=== PATIENT | male | born 1955 | race Caucasian/White ===

== ENCOUNTER 2021-09-29 08:38 | Inpatient (IN) ==
--- NOTE | 2021-09-29 09:06 | Emergency Department Note ---
Impression & Plan Acute respiratory failure, Pneumonia due to COVID-19 virus, Hypoxia ED Provider Note NAME: KATELIN ROBERTS Sr AGE: 66 SEX: M : 1955 ARRIVES VIA: Ambulance INFORMANT: Patient ED PROVIDER(S): Jos Matthews DO CHIEF COMPLAINT: Shortness of breath HPI: Patient is a 66-year-old male who presents the ER from [facility]. Patient was transferred there for rib fractures and a fall. He started getting short of breath and coughing over the past 72 to 48 hours. He tested positive for Covid yesterday. He is a previous smoker. He admits to shortness of breath. No belly pain. No nausea, vomiting, or diarrhea. No dysuria, urgency, or frequency. He has been having fevers there. He has been diagnosed with CHF and COPD. He was placed on nasal cannula and switched to a nonrebreather and moved up from 4L to 10 L and transferred via EMS to hospital. ROS: See above HPI for pertinent positives & negatives. A total of 10 systems reviewed and were otherwise negative. PAST MEDICAL HISTORY:See Below PAST SURGICAL HISTORY:See Below FAMILY HISTORY:See Below SOCIAL HISTORY:See Below HOME MEDICATIONS:See Below ALLERGIES:See Below VITALS:See Below PHYSICAL EXAMINATION: GENERAL: Sitting up in bed, alert, ill-appearing, disheveled on a nonrebreather, moderate distress EYE EXAM: normal conjunctiva. PERRL and EOM's grossly intact. OROPHARYNX: Dry mucous membranes NECK: supple, no nuchal rigidity, no adenopathy, non-tender LUNGS: Diminished bilaterally. Normal chest wall mechanics HEART: no murmurs, S1 normal and S2 normal ABDOMEN: abdomen soft, non-tender, normo-active bowel sounds, no masses, no rebound or guarding. UPPER EXTREMITIES: upper extremities are grossly normal. LOWER EXTREMITIES: No pitting edema. NEURO EXAM: Normal sensorium, cranial nerves II-XII grossly intact, normal speech, no gross weakness of arms, no gross weakness of legs. MEDICAL DECISION MAKING: Patient is a six 6-year-old male who presents the ER for shortness of breath. He is Covid positive. Upon presentation he was found to be hypoxic and was placed on BiPAP. On BiPAP pulse ox was initially doing fairly well in the low 90s. He trended down into the low 80s and was fairly persistently 82 to 83%. Labs were obtained showed no significant leukocytosis but a mild anemia 11,000. INR was unremarkable. VBG with a CO2 of 51. BMP along with LFTs bilirubin and troponin was unremarkable. Lipase was normal. Patient was Covid positive. He was given fluids and Decadron. He was intubated by myself at bedside as he was not maintaining his oxygen saturations. This was done with socks and ketamine. Following this I discussed with Dr. Silva and Dr. Cano. Patient was accepted to the ICU and he was transferred over there fairly quickly. Triage Nursing notes reviewed. Limited review of prior medical records performed Vital Signs: reviewed and remarkable for hypoxic Differential diagnosis: Differential diagnoses includes but is not limited to pneumonia, bronchitis, COPD/Asthma exacerbation, pneumothorax, pulmonary embolism, congestive heart failure, acute coronary syndrome ER treatment provided: See below Diagnostics interpreted by me: ECG: Sinus rhythm rate of 79 Normal axis No PVCs Poor baseline QTC 463 Cardiac Monitoring: An order was placed for continuous cardiac monitoring. The monitor shows a rate of 80 with sinus rhythm. Laboratory studies: As stated above and show below. Imaging studies: Chest x-ray with bilateral infiltrates Chest x-ray shows ET tube placement above the paulie Consultation(s): Discussed with Dr. Yohan Silva for further evaluation due to the persistent hypoxia following intubation after increasing PEEP. Patient was taken over to the ICU per his request Discussed with Dr. Cano for admission Procedures: EM PROCEDURE NOTE - Endotracheal Intubation PROCEDURE NOTE: Informed consent was obtained by the patient. Verify Correct Patient: yes Procedure: Endotracheal intubation Indication: Hypoxic respiratory failure The procedure was done emergently. Description of the Procedure: The patient was seen and properly identified. The patient was pre-oxygenated and intubated after rapid sequence induction with meds: Succinylcholine and ketamine. Intubation was performed using a 3 glide scope and a 7.5 cuffed endotracheal tube. The tube was visualized going through the cords and secured with the 25cm ling at the lips. The patient had good bilateral breath sounds in the axillae with good chest rise. Proper ET tube placement was confirmed by end tidal CO2 detector. The patient tolerated the procedure well. Critical Care: I have personally spent 75 minutes of critical care time in the direct management of this patient. This includes bedside care, interpretation of diagnostic studies, and testing, discussion with consultants, patient, and family members, and other required patient management activities. This 75 minutes is in excess of all separately billable procedures. Past Med/Surg History Medical History CAP (community acquired pneumonia) CHF (congestive heart failure) Chronic diastolic (congestive) heart failure COPD (chronic obstructive pulmonary disease) Depression Diabetes mellitus, type II HLD (hyperlipidemia) HTN (hypertension) STAR (obstructive sleep apnea) Respiratory failure Ribs, multiple fractures Urinary tract infection due to ESBL Klebsiella Venous stasis Surgical History History of carpal tunnel surgery Family History Other COPD (chronic obstructive pulmonary disease) Cancer Diabetes Kidney disease Stroke Social History Smoking Status: Former smoker Tobacco Type: Cigarettes Hx Alcohol Use: No Hx Substance Use: No Feels Safe at Home: Yes Allergies Allergies Allergy/AdvReac Type Severity Reaction Status Date / Time calamine Allergy Unknown Unknown Unverified 09/29/21 09:51 cefepime Allergy Unknown Rash Unverified 09/29/21 09:51 Penicillins Allergy Unknown Rash Unverified 09/29/21 09:51 piperacillin [From Zosyn] Allergy Unknown Unknown Unverified 09/29/21 09:51 procaine Allergy Unknown swelling Unverified 09/29/21 09:51 lips, face tazobactam [From Zosyn] Allergy Unknown Unknown Unverified 09/29/21 09:51 vancomycin Allergy Unknown Rash Unverified 09/29/21 09:51 Home Meds Home Medications Medication Instructions Recorded Confirmed acetaminophen 650 mg tablet 650 mg PO Q4H PRN 08/30/21 09/29/21 albuterol 90 mcg/actuation aerosol 180 mcg INHALATION QID 08/30/21 09/29/21 inhaler atorvastatin 40 mg tablet 40 mg PO DAILY 08/30/21 09/29/21 bisacodyl 10 mg rectal suppository 10 mg DE DAILY PRN 08/30/21 09/29/21 bupropion HCl 150 mg tablet,12 hr 150 mg PO BID 08/30/21 09/29/21 sustained-release docusate calcium 50 mg capsule 100 mg PO BID 08/30/21 09/29/21 empagliflozin 25 mg tablet 25 mg PO QAM 08/30/21 09/29/21 (Jardiance) fluticasone fur. 100 mcg-umeclid 1 ea INHALATION DAILY 08/30/21 09/29/21 62.5 mcg-vilant 25 mcg inhalat.powder (Trelegy Ellipta) glucagon 0.5 mg/0.1 mL 0.5 mg SUBCUT UD PRN 08/30/21 09/29/21 subcutaneous auto-injector insulin aspart U-100 100 unit/mL 0 sliding scale dose SUBCUT ACHS 08/30/21 09/29/21 subcutaneous solution (Novolog U-100 Insulin aspart) insulin glargine 100 unit/mL 22 unit SUBCUT BID 08/30/21 09/29/21 subcutaneous solution (Lantus U-100 Insulin) magnesium hydroxide 400 mg/5 mL 30 ml PO DAILY PRN 08/30/21 09/29/21 oral suspension (Milk of Magnesia) polyethylene glycol 3350 17 gram 17 g PO DAILY PRN 08/30/21 09/29/21 oral powder packet (Miralax) pregabalin 75 mg capsule 75 mg PO Q12H 08/30/21 09/29/21 sennosides 8.6 mg tablet (senna) 8.6 mg PO BID 08/30/21 09/29/21 sennosides 8.6 mg-docusate sodium 1 tab-cap PO DAILY PRN 08/30/21 09/29/21 50 mg tablet (Senexon-S) sertraline 100 mg tablet 200 mg PO DAILY 08/30/21 09/29/21 silver sulfadiazine 1 % topical 1 applic TOPICAL DAILY 08/30/21 09/29/21 cream (Silvadene) sodium phosphates 19 gram-7 133 ml DE DAILY PRN 08/30/21 09/29/21 gram/118 mL enema (Fleet Enema) furosemide 40 mg tablet 40 mg PO BID 09/29/21 09/29/21 lisinopril 10 mg tablet 10 mg PO DAILY 09/29/21 09/29/21 metoprolol succinate 25 mg 25 mg PO DAILY 09/29/21 09/29/21 tablet,extended release 24 hr tiotropium bromide 18 mcg capsule 1 cap INHALATION DAILY 09/29/21 09/29/21 with inhalation device (Spiriva with HandiHaler) warfarin 5 mg tablet 0 mg PO UD 09/29/21 09/29/21 Results & Data (ED) Vital Signs Vital Signs - 24 hr 09/29/21 08:55 09/29/21 09:00 09/29/21 09:17 Temperature Temperature Source Pulse Rate 89 83 78 Pulse Rate [Apical] Pulse Rate from SpO2 Sensor 88 78 Respiratory Rate 24 22 27 H Respiratory Effort / Characteristics Spontaneous Blood Pressure 121/70 Blood Pressure [Right Arm] Blood Pressure Mean 87 Blood Pressure Mean [Right Arm] Pulse Oximetry 92 92 93 Oxygen Delivery Method Fraction of Inspired Oxygen 60 Sepsis Recent Fever Within 48 Hours Sepsis New/Unexplained Change in Mental Status Sepsis Action Taken by Nursing End-Tidal CO2 09/29/21 09:30 09/29/21 09:54 09/29/21 10:57 Temperature 37.8 C H Temperature Source Oral Pulse Rate 81 85 Pulse Rate [Apical] 80 Pulse Rate from SpO2 Sensor 81 Respiratory Rate 24 26 H 29 H Respiratory Effort / Characteristics Accessory Muscle Use Labored Blood Pressure 121/70 Blood Pressure [Right Arm] 109/49 L Blood Pressure Mean 87 Blood Pressure Mean [Right Arm] 69 Pulse Oximetry 94 92 86 L Oxygen Delivery Method BiPAP BiPAP Fraction of Inspired Oxygen Sepsis Recent Fever Within 48 Hours Yes Sepsis New/Unexplained Change in Mental Status No Sepsis Action Taken by Nursing No Action Required End-Tidal CO2 09/29/21 11:00 09/29/21 11:05 09/29/21 11:08 Temperature Temperature Source Pulse Rate 75 68 73 Pulse Rate [Apical] 79 69 Pulse Rate from SpO2 Sensor 77 68 Respiratory Rate 26 H 18 28 H Respiratory Effort / Characteristics Blood Pressure 94/53 L Blood Pressure [Right Arm] 83/46 L 94/53 L Blood Pressure Mean 66 Blood Pressure Mean [Right Arm] 58 66 Pulse Oximetry 82 L 82 L 91 Oxygen Delivery Method BiPAP Mechanical Vent Fraction of Inspired Oxygen 100 Sepsis Recent Fever Within 48 Hours Sepsis New/Unexplained Change in Mental Status Sepsis Action Taken by Nursing End-Tidal CO2 30 34 09/29/21 11:10 09/29/21 11:15 09/29/21 11:20 Temperature Temperature Source Pulse Rate 73 74 73 Pulse Rate [Apical] Pulse Rate from SpO2 Sensor 73 75 73 Respiratory Rate 21 27 H 27 H Respiratory Effort / Characteristics Blood Pressure 95/57 L 107/61 114/67 Blood Pressure [Right Arm] Blood Pressure Mean 69 76 82 Blood Pressure Mean [Right Arm] Pulse Oximetry 80 L 86 L 91 Oxygen Delivery Method Mechanical Vent Mechanical Vent Mechanical Vent Fraction of Inspired Oxygen Sepsis Recent Fever Within 48 Hours Sepsis New/Unexplained Change in Mental Status Sepsis Action Taken by Nursing End-Tidal CO2 31 29 31 09/29/21 11:25 09/29/21 11:30 09/29/21 11:35 Temperature Temperature Source Pulse Rate 74 77 93 H Pulse Rate [Apical] Pulse Rate from SpO2 Sensor 75 79 93 H Respiratory Rate 28 H 29 H 24 Respiratory Effort / Characteristics Blood Pressure 140/75 124/91 122/81 Blood Pressure [Right Arm] Blood Pressure Mean 96 102 94 Blood Pressure Mean [Right Arm] Pulse Oximetry 93 92 92 Oxygen Delivery Method Mechanical Vent Mechanical Vent Mechanical Vent Fraction of Inspired Oxygen Sepsis Recent Fever Within 48 Hours Sepsis New/Unexplained Change in Mental Status Sepsis Action Taken by Nursing End-Tidal CO2 35 32 36 09/29/21 11:40 09/29/21 11:56 Temperature Temperature Source Pulse Rate 84 Pulse Rate [Apical] Pulse Rate from SpO2 Sensor Respiratory Rate 33 H Respiratory Effort / Characteristics Blood Pressure Blood Pressure [Right Arm] Blood Pressure Mean Blood Pressure Mean [Right Arm] Pulse Oximetry 93 99 Oxygen Delivery Method Fraction of Inspired Oxygen 100 100 Sepsis Recent Fever Within 48 Hours Sepsis New/Unexplained Change in Mental Status Sepsis Action Taken by Nursing End-Tidal CO2 30 Laboratory Data Result diagrams: 09/29/21 Unknown 09/29/21 Unknown Lab Results 09/29/21 Range/Units 11:05 VBG pH 7.37 (7.36-7.41) VBG pCO2 51 H (38-50) mmHg VBG pO2 43 mmHg VBG HCO3 29 mmol/L VBG O2 Saturation 73.0 % VBG Base Excess 3.1 mEq/L Barometric Pressure 726.5 mm/Hg Administered Medications Midazolam HCl (Versed) 125 mg in 250 mls @ 12 mls/hr IV .[id number] [facility]; Protocol Stop: 10/29/21 11:14 Last Titration: 09/29/21 12:18 Dose: 6 mg/hr, 12 mls/hr Documented by: [id number] Cosigned by: [id number] Titration: 09/29/21 12:18 Dose: 6 mg/hr, 12 mls/hr Documented by: [id number] Cosigned by: [id number] Admin: 09/29/21 11:25 Dose: 1 mg/hr, 2 mls/hr Documented by: [id number] Cosigned by: [id number] Propofol (Diprivan) 1,000 mg in 100 mls @ 14.28 mls/hr IV .Q7H1M [facility]; Protocol Stop: 10/02/21 12:29 Last Admin: 09/29/21 12:35 Dose: 20 mcg/kg/min, 14.3 mls/hr Documented by: [id number] Cosigned by: [id number] Propofol (Diprivan) 1,000 mg in 100 mls @ 14.28 mls/hr IV .Q7H1M [facility]; Protocol Stop: 10/02/21 12:36 Last Admin: 09/29/21 12:46 Dose: Not Given Documented by: [id number] Fentanyl Citrate (Fentanyl Drip) 1,250 mcg in 250 mls @ 5 mls/hr IV .Q50H [facility]; Protocol Stop: 10/13/21 12:36 Last Admin: 09/29/21 12:46 Dose: 25 mcg/hr, 5 mls/hr Documented by: [id number] Cosigned by: [id number] Midazolam HCl (Midazolam Bolus From Bag) 2 mg IV Q60M PRN PRN Reason: Sedation Stop: 10/29/21 11:13 Last Admin: 09/29/21 11:34 Dose: 2 mg Documented by: [id number] Discontinued Medications Dexamethasone (Dexamethasone Sod Inj 4 Mg/Ml Vial) 6 mg IV NOW STA Stop: 09/29/21 10:18 Last Admin: 09/29/21 10:36 Dose: 6 mg Documented by: [id number] Sodium Chloride (Nss) 500 mls @ 999 mls/hr IV .Q31M ONE Stop: 09/29/21 09:38 Last Admin: 09/29/21 10:01 Dose: 999 mls/hr Documented by: [id number] Miscellaneous (Rapid Sequence Induction Bag) Confirm Administered Dose 1 ea .ROUTE .STK-MED ONE Stop: 09/29/21 10:48 Last Admin: 09/29/21 12:36 Dose: Not Given Documented by: [id number] Miscellaneous (Stat Iv Infusion Titration Per Protocol) 1 ea N/A NOW STA Stop: 09/29/21 11:34 Last Admin: 09/29/21 12:37 Dose: Not Given Documented by: [id number] Propofol (Propofol Iv Emulsion 10 Mg/Ml 100 Ml Vial) Confirm Administered Dose 1,000 mg IV .STK-MED ONE Stop: 09/29/21 12:07 Last Admin: 09/29/21 12:21 Dose: Not Given Documented by: [id number] Vecuronium [place] (Vecuronium [place] 10 Mg Vial) Confirm Administered Dose 10 mg IV .STK-MED ONE Stop: 09/29/21 12:07 Last Admin: 09/29/21 12:18 Dose: 10 mg Documented by: [id number] Cosigned by: [id number] Imaging Data Radiologist's Impression: Chest X-Ray 09/29/21 09:00 XR chest 1V portable CLINICAL HISTORY: Chest Pain. COMPARISON STUDY: 09/17/2021 TECHNIQUE: 1 view of the chest FINDINGS: Single frontal view of the chest demonstrates the cardiomediastinal silhouette to be within normal limits. Compared to the previous examination, patchy interstitial and alveolar opacities are present bilaterally. The findings are most characteristic of a viral type pneumonitis. Covid 19 pneumonia should be excluded. There is again suspicion of a small left pleural effusion. No definite right pleural effusion is seen. There is no evidence for vascular congestion. There is no acute osseous pathology. IMPRESSION: Compared to the previous study, patchy interstitial and alveolar opacities bilaterally characteristic of a viral type pneumonitis and probable early Covid 19 pneumonia. There is also suspicion of a small left pleural effusion. ACT 112: Negative or not required by law. Electronically signed by: Luis Pérez M.D. 09/29/2021 9:52 AM Chest X-Ray 09/29/21 10:45 XR chest 1V portable at 10:49 AM CLINICAL HISTORY: Status post intubation. Follow-up suspected Covid pneumonia COMPARISON STUDY: Portable chest on 09/21/2021 at 9:18 AM TECHNIQUE: 1 view of the chest FINDINGS: Single frontal view of the chest demonstrates the cardiomediastinal silhouette to be within normal limits. There has been interval placement of endotracheal tube with its tip approximately 4.3 cm above the paulie. Compared to previous study, bilateral interstitial and alveolar opacities are again seen characteristic of a viral type pneumonitis and Covid 19 pneumonia. There is again suspicion of a small left pleural effusion. There is no evidence for v ascular congestion. There is no acute osseous pathology. IMPRESSION: Status post intubation. Bilateral interstitial alveolar opacities and small left pleural effusion are again seen with findings most characteristic of early Covid pneumonia. ACT 112: Negative or not required by law. Electronically signed by: Luis Pérez M.D. 09/29/2021 11:18 AM Discharge Plan Visit Data Chief Complaint: Respiratory Distress Stated Complaint: SOB, COVID + ED Provider: Jos Matthews Discharge Problem: Acute respiratory failure, Pneumonia due to COVID-19 virus, Hypoxia Patient Disposition: Admitted As Inpatient Discharge Instructions Interventions: ED Discharge Assessment Last Done: 09/29/21 11:36 Discharge Problem: Acute respiratory failure Qualifiers: Respiratory failure complication: hypoxia Qualified Code(s): J96.01 - Acute respiratory failure with hypoxia
[2021-09-29] MEDS ORDERED: dexAMETHasone 6 MG in SYRINGE 0 ML IV ONE (09:08)
[2021-09-29] MEDS ORDERED: SODIUM CHLORIDE 0.9% 500 ML IV ONE (09:08)
[2021-09-29 09:15] LABS: Eosinophils # (auto) 0.02 K/uL (0-0.5); Eosinophils % (auto) 0.2 %; Hemoglobin 11.3 g/dL (14.0-18.0); Immature Granulocytes # (auto) 0.05 K/uL (0.00-0.02); Immature Granulocytes % (auto) 0.5 %; Lymphocytes # (auto) 0.76 K/uL (1.2-3.4); Lymphocytes % (auto) 8.2 %; Mean Corpuscular Hemoglobin 29.2 pg (25-34); Mean Corpuscular Hgb Conc 33.2 g/dL (32-36); Mean Corpuscular Volume 87.9 fL (80-100); Mean Platelet Volume 8.8 fL (7.4-10.4); Monocytes # (auto) 0.69 K/uL (0.11-0.59); Monocytes % (auto) 7.4 %; Neutrophils # (auto) 7.78 K/uL (1.4-6.5); Neutrophils % (auto) 83.7 %; Platelet Count 232 K/uL (130-400); Red Blood Count 3.87 M/uL (4.7-6.1)
[2021-09-29 09:33] LABS: Alanine Aminotransferase 75 U/L (12-78); Albumin Level 1.8 gm/dl (3.4-5.0); Aspartate Aminotransferase 71 U/L (15-37); Blood Urea Nitrogen 25 mg/dl (7-18); Calcium 8.4 mg/dl (8.5-10.1); Carbon Dioxide 27 mmol/L (21-32); Chloride 100 mmol/L (98-107); Est GFR (African American) 83.8 ml/min; Est GFR (Non-African American) 72.3 ml/min; Glucose 92 mg/dl (70-99); Lipase 158 U/L (73-393); Potassium 4.1 mmol/L (3.5-5.1); Sodium 137 mmol/L (136-145)
[2021-09-29 09:38] LABS: Albumin Globulin Ratio 0.3 (0.9-2); Alkaline Phosphatase 182 U/L (45-117); Bilirubin,Total 0.4 mg/dl (0.2-1); Globulin 5.5 gm/dl (2.5-4.0); Total Protein 7.3 gm/dl (6.4-8.2); Troponin I 0.015 ng/ml (0-0.045)
--- NOTE | 2021-09-29 09:54 | XRay Report ---
XR chest 1V portable CLINICAL HISTORY: Chest Pain. COMPARISON STUDY: 09/17/2021 TECHNIQUE: 1 view of the chest FINDINGS: Single frontal view of the chest demonstrates the cardiomediastinal silhouette to be within normal li mits. Compared to the previous examination, patchy interstitial and alveolar opacities are present bi laterally. The findings are most characteristic of a viral type pneumonitis. Covid 19 pneumonia shoul d be excluded. There is again suspicion of a small left pleural effusion. No definite right pleural e ffusion is seen. There is no evidence for vascular congestion. There is no acute osseous pathology. IMPRESSION: Compared to the previous study, patchy interstitial and alveolar opacities bilaterally ch aracteristic of a viral type pneumonitis and probable early Covid 19 pneumonia. There is also suspici on of a small left pleural effusion. ACT 112: Negative or not required by law. Electronically signed by: Luis Pérez M.D. 09/29/2021 9:52 AM
[2021-09-29] MEDS ORDERED: DEXAMETHASONE SOD INJ 4 MG/ML VIAL IV STA (10:17)
--- NOTE | 2021-09-29 10:46 | Electrocardiogram Report ---
Test Reason : Blood Pressure : / mmHG Vent. Rate : 079 BPM Atrial Rate : 079 BPM P-R Int : 186 ms QRS Dur : 096 ms QT Int : 404 ms P-R-T Axes : 045 012 195 degrees QTc Int : 463 ms Poor data quality, interpretation may be adversely affected Normal sinus rhythm with sinus arrhythmia T wave abnormality, consider inferolateral ischemia Prolonged QT Abnormal ECG When compared with ECG of 17-SEP-2021 14:07, No significant change was found Confirmed by Tk Zhou ([id number]) on 09/29/2021 10:45:38 AM Referred By: NO PCP Confirmed By:Robert Zhou
[2021-09-29] MEDS ORDERED: RAPID SEQUENCE INDUCTION BAG ONE (10:47)
[2021-09-29] MEDS ORDERED: MIDAZOLAM BOLUS FROM BAG IV PRN (11:14)
[2021-09-29] MEDS ORDERED: STAT IV Infusion **Titration per Protocol STA ×4 (11:14→12:54)
[2021-09-29] MEDS ORDERED: MIDAZOLAM HCL 125 MG/250 ML BAG IV SCH (11:15)
--- NOTE | 2021-09-29 11:19 | XRay Report ---
XR chest 1V portable at 10:49 AM CLINICAL HISTORY: Status post intubation. Follow-up suspected Covid pneumonia COMPARISON STUDY: Portable chest on 09/21/2021 at 9:18 AM TECHNIQUE: 1 view of the chest FINDINGS: Single frontal view of the chest demonstrates the cardiomediastinal silhouette to be within normal li mits. There has been interval placement of endotracheal tube with its tip approximately 4.3 cm above the paulie. Compared to previous study, bilateral interstitial and alveolar opacities are again seen characteristic of a viral type pneumonitis and Covid 19 pneumonia. There is again suspicion of a smal l left pleural effusion. There is no evidence for vascular congestion. There is no acute osseous path ology. IMPRESSION: Status post intubation. Bilateral interstitial alveolar opacities and small left pleural effusion are again seen with findings most characteristic of early Covid pneumonia. ACT 112: Negative or not required by law. Electronically signed by: Luis Pérez M.D. 09/29/2021 11:18 AM
[2021-09-29 11:22] LABS: Base Excess VBG 3.1 mEq/L; pH VBG 7.37 (7.36-7.41)
[2021-09-29] MEDS ORDERED: PROPOFOL IV EMULSION 10 MG/ML 100 ML VIAL IV ONE (12:06)
[2021-09-29] MEDS ORDERED: VECURONIUM BROMIDE 10 MG VIAL IV ONE (12:06)
[2021-09-29] MEDS ORDERED: ERTAPENEM CONSULT ACTIVE PRN (12:14)
--- NOTE | 2021-09-29 12:15 | History & Physical Report ---
Date of Service September 29, 2021 Assessment & Plan (1) Acute respiratory failure: (2) STAR (obstructive sleep apnea): (3) COPD (chronic obstructive pulmonary disease): (4) Diabetes mellitus, type II: (5) Urinary tract infection due to ESBL Klebsiella: (6) Pneumonia due to COVID-19 virus: Plan: Acute respiratory failure due to COVID-19 pneumonia requiring mechanical ventilation. ESBL Klebsiella UTI Admit to ICU carpet installation specialist consult. ICU physician notified Got dexamethasone in ER. Continue dexamethasone Give one dose of remdesivir. ALp and ALK elevated. Monitor before continuing dose Mechanical ventilation per protocol Sedation per ICU protocol Monitor blood glucose while on dexamethasone. Pharm consulted for glycemic management F/u CRP, procalcitonin F/u CT PE INR per records was 2.01 on 09/27. F/u INR Do therapeutic lovenox for now From EPIC review, UCx from 09/27/21 growing >100,000 LF GNR UCx from 08/31/21, 08/27/21, 08/16/21 grew Klebsiella pneumonia ESBL Continue ertapenem for now Get UCx and blood Cx Per records, patient has skin ulcers. Not able to eval now due to patient being stabilized Wound care management History of Present Illness Chief Complaint: Shortness of breath Primary Care Provider: Lenka [facility] 66 y/o M with PMH DM II, HTN, HLD, STAR, depression, chronic bronchitis, chronic diastolic heart failure, venous stasis, obesity Who was brought in from [facility] for worsening shortness of breath. History obtained from records and ER physician as patient is currently intubated. Patient had a recent ground-level fall with rib fractures and sternal fracture complicated by respiratory failure requiring brief intubation and management of septic shock at [facility] (transferred there from [facility]). Discharged from [facility] to [facility] on 08/22/21. Presented to [facility] ER on 08/30/21 for rspiratory distress and aucte renal failure. Was transferred to [facility] where he was managed for septic shock (UTI and resp failure), required intubation and was discharged back from [facility] to [facility] on 09/10/21. Patient was reported to have been having cough and shortness of breath over the past few days, tested positive for COVID-19 yesterday and has been having fevers. He was on nasal cannula was hypoxic and had to be transferred to the ER. Patient required BiPAP in the ER but due to worsening respiratory status, saturating 80s on BiPAP, patient was intubated. Labs notable for hemoglobin of 11.3, alkaline phosphatase of 182, albumin of 1.8, positive Covid test Chest tube reports patchy infiltrates bilaterally characteristic of viral pneumonitis. Allergies Allergy/AdvReac Type Severity Reaction Status Date / Time calamine Allergy Unknown Unknown Unverified 09/29/21 09:51 cefepime Allergy Unknown Rash Unverified 09/29/21 09:51 Penicillins Allergy Unknown Rash Unverified 09/29/21 09:51 piperacillin [From Zosyn] Allergy Unknown Unknown Unverified 09/29/21 09:51 procaine Allergy Unknown swelling Unverified 09/29/21 09:51 lips, face tazobactam [From Zosyn] Allergy Unknown Unknown Unverified 09/29/21 09:51 vancomycin Allergy Unknown Rash Unverified 09/29/21 09:51 Home Medications Medication Instructions Recorded Confirmed Type acetaminophen 650 mg tablet 650 mg PO Q4H PRN 08/30/21 09/29/21 History albuterol 90 mcg/actuation aerosol 180 mcg INHALATION QID 08/30/21 09/29/21 History inhaler atorvastatin 40 mg tablet 40 mg PO DAILY 08/30/21 09/29/21 History bisacodyl 10 mg rectal suppository 10 mg ND DAILY PRN 08/30/21 09/29/21 History bupropion HCl 150 mg tablet,12 hr 150 mg PO BID 08/30/21 09/29/21 History sustained-release docusate calcium 50 mg capsule 100 mg PO BID 08/30/21 09/29/21 History empagliflozin 25 mg tablet 25 mg PO QAM 08/30/21 09/29/21 History (Jardiance) fluticasone fur. 100 mcg-umeclid 1 ea INHALATION DAILY 08/30/21 09/29/21 History 62.5 mcg-vilant 25 mcg inhalat.powder (Trelegy Ellipta) glucagon 0.5 mg/0.1 mL 0.5 mg SUBCUT UD PRN 08/30/21 09/29/21 History subcutaneous auto-injector insulin aspart U-100 100 unit/mL 0 sliding scale dose SUBCUT ACHS 08/30/21 09/29/21 History subcutaneous solution (Novolog U-100 Insulin aspart) insulin glargine 100 unit/mL 22 unit SUBCUT BID 08/30/21 09/29/21 History subcutaneous solution (Lantus U-100 Insulin) magnesium hydroxide 400 mg/5 mL 30 ml PO DAILY PRN 08/30/21 09/29/21 History oral suspension (Milk of Magnesia) polyethylene glycol 3350 17 gram 17 g PO DAILY PRN 08/30/21 09/29/21 History oral powder packet (Miralax) pregabalin 75 mg capsule 75 mg PO Q12H 08/30/21 09/29/21 History sennosides 8.6 mg tablet (senna) 8.6 mg PO BID 08/30/21 09/29/21 History sennosides 8.6 mg-docusate sodium 1 tab-cap PO DAILY PRN 08/30/21 09/29/21 History 50 mg tablet (Senexon-S) sertraline 100 mg tablet 200 mg PO DAILY 08/30/21 09/29/21 History silver sulfadiazine 1 % topical 1 applic TOPICAL DAILY 08/30/21 09/29/21 History cream (Silvadene) sodium phosphates 19 gram-7 133 ml ND DAILY PRN 08/30/21 09/29/21 History gram/118 mL enema (Fleet Enema) furosemide 40 mg tablet 40 mg PO BID 09/29/21 09/29/21 History lisinopril 10 mg tablet 10 mg PO DAILY 09/29/21 09/29/21 History metoprolol succinate 25 mg 25 mg PO DAILY 09/29/21 09/29/21 History tablet,extended release 24 hr tiotropium bromide 18 mcg capsule 1 cap INHALATION DAILY 09/29/21 09/29/21 History with inhalation device (Spiriva with HandiHaler) warfarin 5 mg tablet 0 mg PO UD 09/29/21 09/29/21 History Past Med/Surg History Medical History CAP (community acquired pneumonia) CHF (congestive heart failure) Chronic diastolic (congestive) heart failure COPD (chronic obstructive pulmonary disease) Depression Diabetes mellitus, type II HLD (hyperlipidemia) HTN (hypertension) STAR (obstructive sleep apnea) Respiratory failure Ribs, multiple fractures Urinary tract infection due to ESBL Klebsiella Venous stasis Surgical History History of carpal tunnel surgery Family History Other COPD (chronic obstructive pulmonary disease) Cancer Diabetes Kidney disease Stroke Social History Smoking Status: Former smoker Tobacco Type: Cigarettes Hx Alcohol Use: No Hx Substance Use: No Feels Safe at Home: Yes Review of Systems Review of Systems: Unobtainable due to endotracheal tube Physical Exam Constitutional: + obese Intubated ENMT: ET tube in situ Respiratory: On mechanical ventilation, diminished breath sounds Cardiovascular: RRR, S1-S2 Gastrointestinal (Abdomen): normal bowel sounds, soft, nontender, no hepatosplenomegaly Musculoskeletal: Chronic stasis changes lower extremities Skin: Erythematous rash in perineal region and groin Neurologic: Intubated/sedated Genitourinary: Kendall being inserted Results & Data Results & Data ([facility]) Vital Signs (Past 12 Hours) Vital Signs Temp Pulse Pulse Resp BP BP Pulse Ox 09/29/21 11:30 77 29 H 124/91 92 09/29/21 11:25 74 28 H 140/75 93 09/29/21 11:20 73 27 H 114/67 91 09/29/21 11:15 74 27 H 107/61 86 L 09/29/21 11:10 73 21 95/57 L 80 L 09/29/21 11:08 73 28 H 91 09/29/21 11:05 68 69 18 94/53 L 94/53 L 82 L 09/29/21 11:00 75 79 26 H 83/46 L 82 L 09/29/21 10:57 80 29 H 109/49 L 86 L 09/29/21 09:54 37.8 C H 85 26 H 121/70 92 09/29/21 09:30 81 24 94 09/29/21 09:17 78 27 H 93 09/29/21 09:00 83 22 92 09/29/21 08:55 89 24 121/70 92 Laboratory Results Abnormal lab results 09/29/21 09/29/21 09/29/21 Range/Units 11:05 Unknown Unknown RBC 3.87 L (4.7-6.1) M/uL Hgb 11.3 L (14.0-18.0) g/dL Hct 34.0 L (42-52) % RDW Std Deviation 55.0 H (36.4-46.3) fL RDW Coeff of Timur 17.0 H (11.5-14.5) % Neut # (Auto) 7.78 H (1.4-6.5) K/uL Lymph # (Auto) 0.76 L (1.2-3.4) K/uL Burnett # (Auto) 0.69 H (0.11-0.59) K/uL Immature Gran # (Auto) 0.05 H (0.00-0.02) K/uL VBG pCO2 51 H (38-50) mmHg BUN 25 H (7-18) mg/dl BUN/Creatinine Ratio 24.0 H (10-20) Calcium 8.4 L (8.5-10.1) mg/dl AST 71 H (15-37) U/L Alkaline Phosphatase 182 H (45-117) U/L Albumin 1.8 L (3.4-5.0) gm/dl Globulin 5.5 H (2.5-4.0) gm/dl Albumin/Globulin Ratio 0.3 L (0.9-2) SARS-CoV-2 (PCR) (Negative) 09/29/21 Range/Units Unknown RBC (4.7-6.1) M/uL Hgb (14.0-18.0) g/dL Hct (42-52) % RDW Std Deviation (36.4-46.3) fL RDW Coeff of Timur (11.5-14.5) % Neut # (Auto) (1.4-6.5) K/uL Lymph # (Auto) (1.2-3.4) K/uL Burnett # (Auto) (0.11-0.59) K/uL Immature Gran # (Auto) (0.00-0.02) K/uL VBG pCO2 (38-50) mmHg BUN (7-18) mg/dl BUN/Creatinine Ratio (10-20) Calcium (8.5-10.1) mg/dl AST (15-37) U/L Alkaline Phosphatase (45-117) U/L Albumin (3.4-5.0) gm/dl Globulin (2.5-4.0) gm/dl Albumin/Globulin Ratio (0.9-2) SARS-CoV-2 (PCR) POSITIVE A* (Negative) Diagnostic Findings XR chest 1V portable CLINICAL HISTORY: Chest Pain. COMPARISON STUDY: 09/17/2021 TECHNIQUE: 1 view of the chest FINDINGS: Single frontal view of the chest demonstrates the cardiomediastinal silhouette to be within normal limits. Compared to the previous examination, patchy interstitial and alveolar opacities are present bilaterally. The findings are most characteristic of a viral type pneumonitis. Covid 19 pneumonia should be excluded. There is again suspicion of a small left pleural effusion. No definite right pleural effusion is seen. There is no evidence for vascular congestion. There is no acute osseous pathology. IMPRESSION: Compared to the previous study, patchy interstitial and alveolar opacities bilaterally characteristic of a viral type pneumonitis and probable e david Covid 19 pneumonia. There is also suspicion of a small left pleural effusion Code Status & VTE Plan VTE Prophylaxis Plan VTE Prophylaxis will be ordered: Yes
[2021-09-29] MEDS ORDERED: PROPOFOL BOLUS FROM BAG IV PRN ×2 (12:19→12:37)
[2021-09-29] MEDS: propofoL 1,000 MG/100 ML VIAL IV SCH ×2 (12:35→16:39)
[2021-09-29] MEDS ORDERED: propofoL 1,000 MG/100 ML VIAL IV SCH (12:37)
[2021-09-29] MEDS ORDERED: CARBOHYDRATES FOR HYPOGLYCEMIA PO PRN (12:37)
[2021-09-29] MEDS ORDERED: GLUCOSE 10 TABS/TUBE PO PRN (12:37)
[2021-09-29] MEDS ORDERED: GLUCOSE 40% GEL 15 GM TUBE PO PRN (12:37)
[2021-09-29] MEDS ORDERED: DEXTROSE 50% 50 ML SYRINGE IV PRN (12:37)
[2021-09-29] MEDS ORDERED: GLUCAGON FOR INJ 1 MG VIAL SQ PRN (12:37)
[2021-09-29] MEDS ORDERED: PHARMACY GLYCEMIC MGMT CONSULT PRN (12:37)
[2021-09-29] MEDS ORDERED: fentaNYL DRIP 1,250 MCG/250 ML BAG IV SCH (12:37)
[2021-09-29] MEDS ORDERED: ICU PROTOCOL FOR HYPERGLYCEMIA PRN ×2 (12:37→12:54)
[2021-09-29] MEDS ORDERED: SODIUM CHLORIDE 0.9% 10ML FLUSH IV SCH (12:37)
[2021-09-29] MEDS ORDERED: ACETAMINOPHEN 325 MG TAB PO PRN (12:44)
--- NOTE | 2021-09-29 12:50 | Procedure Note ---
Procedure Note Date of Service September 29, 2021 Note CENTRAL LINE PROCEDURE NOTE: Procedure: Central Line Placement Provider: Yohan Silva MD Indication: Central Drug Administration, Poor Venous Access, Multiple Lab Draws Necessary, etc. Anesthesia: 5 mL lidocaine 1% Site: Left subclavian Procedure was emergent. Patient intubated and unable to provide consent. No family immediately available A time-out was completed verifying correct patient, procedure, site, positioning, and implants(s) or special equipment if applicable. Patients left clavicular area was cleansed and draped in the typical sterile fashion using Chloraprep. Anatomic landmarks were identified. The superficial tissue was anesthetized using 5mL of 1% lidocaine without epinephrine. adequate anesthetization was achieved, the left subclavian vein was cannulated using an introducer needle on a syringe. Good venous blood return was maintained prior to removal of syringe from introducer needle. Using Seldinger Technique, a guide wire was advanced through the introducer needle without resistance. The introducer needle was removed. A small incision was made in penetrating fashion at the guide wire insertion site utilizing an 11 blade scalpel. The dilator was advanced to the vessel without resistance. The dilator was exchanged for the triple lumen catheter which was advanced into the vessel without resistance. The guide wire was removed intact from the catheter without issue. Claves were mike jose on each catheter tip with confirmation of good blood flow from each lumen. Each port was easily flushed with sterile saline. The catheter was placed at the hub and sutured in place. BioPatch was applied to the catheter and a sterile Tegaderm dressing was applied over the catheter with careful attention to sterility. Patient tolerated procedure well. No immediate complications were met. Post procedure x-ray pending Coding CPT Codes Tubes, Drains, and Vasc Access - Tubes, Drains, and Vasc Access: [id number] Place catheter in vein superior or inferior vena cava ([id number]) [facility] Procedure Codes (Charges) Tubes, Drains, and Vasc Access Procedure 1: Tubes, Drains, and Vasc Access: [id number] Place catheter in vein superior or inferior vena cava
--- NOTE | 2021-09-29 12:51 | Procedure Note ---
Procedure Note Date of Service September 29, 2021 Note ARTERIAL LINE PROCEDURE NOTE: Procedure: Arterial Line Placement Provider: Yohan Silva MD Indication: Monitoring on Pressors Anesthesia: None Patient is intubated and sedated and unable to provide consent. Procedure was emergent A time-out was completed verifying correct patient, procedure, site, positioning, and implant(s) or special equipment if applicable. Allens test was performed to ensure adequate perfusion. Patients rightwrist was prepped and draped in the usual sterile fashion. Ultrasound guidance was used to aid needle placement. A 20g Arrow arterial line was introduced into the right radialartery. Catheter was threaded, and the needle was removed with appropriate blood return. Good waveform was observed. The patient tolerated the procedure well. Blood Loss: Minimal Complications: None Coding CPT Codes Tubes, Drains, and Vasc Access - Tubes, Drains, and Vasc Access: [id number] Insertion Catheter, Artery ([id number]) Tubes, Drains, and Vasc Access - Tubes, Drains, and Vasc Access: [id number] Ultrasound Guidance For Vascular ([id number]) [facility] Procedure Codes (Charges) Tubes, Drains, and Vasc Access Procedure 1: Tubes, Drains, and Vasc Access: [id number] Insertion Catheter, Artery Procedure 2: Tubes, Drains, and Vasc Access: [id number] Ultrasound Guidance For Vascular
[2021-09-29] MEDS ORDERED: NOREPINEPHRINE/D5W 8 MG/508 ML IV ONE (12:59)
[2021-09-29 13:00] LABS: INR 2.4 (0.9-1.1); Prothrombin Time 22.3 Seconds (9.0-12.0)
--- NOTE | 2021-09-29 13:11 | Critical Care Consultation ---
Date of Consultation September 29, 2021 Assessment & Plan (1) Pneumonia due to COVID-19 virus: (2) Hx of fracture of rib: (3) Acute respiratory failure: (4) Pyelonephritis due to Escherichia coli: Impression: 66-year-old morbidly obese male with multiple medical comorbidities admitted from rehab after extended stay at [facility] for rib fractures, sternal fractures, needing intubation mechanical ventilation as well as acute renal failure with history of ESBL Klebsiellai urinary tract infection now with hypoxemic respiratory failure, Covid positive, and purulent urine. Recommendations: 1. Neurologic: Patient will be sedated using propofol and as needed fentanyl and Versed. Will use neuromuscular blockade as needed. Hold Lyrica and Zoloft 2. Pulmonary: The patient's hypoxemia appears out of proportion to his x-ray. We will proceed with CT angiogram to evaluate for PE as the patient is at risk given his recent trauma, likely decreased mobility, and morbid obesity. This will also allow for interrogation of the patient's pulmonary parenchyma. Continue mechanical ventilation and follow-up blood gas. Try and maintain plateau pressures less than 30. He is currently on 6 cc/kg ideal body weight. Ventilator will be adjusted based on follow-up blood gases. We will check sputum culture as well. Based on the patient's blood gas, he likely has obesity hypoventilation syndrome and once extubated would benefit from nocturnal CPAP or BiPAP if he is not already using it. We will follow up with his CT imaging and blood gas in determine whether or not proning might be an option although again his x-ray does not demonstrate significant parenchymal disease currently but may be underestimated. 3. Cardiovascular: Awaiting lactate. He appears hemodynamically stable currently but could deteriorate with need for sedation. Levophed as needed. Central line placed. Patient has a history of atrial fibrillation and reportedly was on Coumadin. Awaiting INR. He has been initiated on therapeutic Lovenox which is reasonable pending review of his CT angiogram. Holding metoprolol and lisinopril 4. Renal: The patient has a history of chronic kidney disease and renal failure. His creatinine currently is normal. We will follow closely. Await blood gas to determine acid-base status. We will replace electrolytes as needed. Low threshold for nephrology involvement should the patient's creatinine or urine output deteriorate. 5. ID: Covid positive. Await CRP. Would continue dexamethasone 6 mg daily. Unclear if he is a candidate for additional adjuvant therapies. Given the fact that he appears to be actively infected, I would be reluctant to consider other immune suppression agents, in addition we do not have supply of Tocilizumab and baricitinib does not have an indication and mechanically ventilated patients. Continue ertapenem given the patient's ESBL and await cultures. Pharmacy to dose antibiotics. May need allergy input depending on his clinical response. Contact isolation recommended. ID consultation may be required 6. GI: H2 mary. N.p.o. Await LFTs. 7. Heme-onc: No current issues continue to follow. Await INR 8. Endocrine: Glycemic control per pharmacy. May require starting insulin infusion depending on his response. Patient's prognosis is guarded at this point time. He is critically ill with significant possibility of clinical deterioration and/or . No family immediately available. Discussed with respiratory therapy as well as bedside critical care nurses. A total of 85 minutes in critical care time spent evaluating managing and stabilizing this patient exclusive of procedures. History of Present Illness Attending Physician: Emmanuelle Ventura MD History of Present Illness Asked by hospitalist to assist in critical care management of this patient intubated with hypoxemic respiratory failure, Covid, and possible urosepsis. History is obtained from reviewed electronic medical record as well as discussion with the ER staff and the hospitalist. The patient is intubated and unable to provide any history. Unfortunately the patient has had multiple extensive prolonged hospitalizations at [facility] and those details are not currently available for me to review. This 66-year-old male has a complicated medical history including obesity diabetes hypertension chronic diastolic heart failure and venous stasis ulcers. He suffered a fall in August with resulting multiple right-sided rib fractures and a sternal fracture. He was transferred to [facility]. He was intubated on arrival and was treated for bacteremia pneumonia complicated UTI with ESBL E. coli. He was discharged to [facility] 1021. He was seen back in the emergency room 1029 with respiratory distress. Patient had severe sepsis with RENETTA at that point time was transferred back to [facility] as dialysis was not available here. I do not have records from that evaluation either but even tually the patient was returned to [facility]. He presented to the emergency room today with shortness of breath. They apparently briefly tried BiPAP in the emergency room however the patient failed and was subsequently intubated. They initially had difficulty maintaining his saturations. I made arrangements with the charge nurse to get the patient immediately admitted to the Covid unit where I assessed him. His oxygenation improved and he had oxygen saturations in the mid 90% range there. He was agitated and we initiated a propofol drip and gave 1 dose of vecuronium. Central line and arterial lines were placed. He is pending a CT angiogram as his chest x-ray appears not consistent with the degree of hypoxemia that he is experiencing and I would like to exclude PE. He also has lucas pus draining from his Kendall catheter. Lactate was not assessed in the emergency room. He did receive ertapenem. Allergies Allergy/AdvReac Type Severity Reaction Status Date / Time calamine Allergy Unknown Unknown Unverified 09/29/21 09:51 cefepime Allergy Unknown Rash Unverified 09/29/21 09:51 Penicillins Allergy Unknown Rash Unverified 09/29/21 09:51 piperacillin [From Zosyn] Allergy Unknown Unknown Unverified 09/29/21 09:51 procaine Allergy Unknown swelling Unverified 09/29/21 09:51 lips, face tazobactam [From Zosyn] Allergy Unknown Unknown Unverified 09/29/21 09:51 vancomycin Allergy Unknown Rash Unverified 09/29/21 09:51 Home Medications Medication Instructions Recorded Confirmed Type acetaminophen 650 mg tablet 650 mg PO Q4H PRN 08/30/21 09/29/21 History albuterol 90 mcg/actuation aerosol 180 mcg INHALATION QID 08/30/21 09/29/21 History inhaler atorvastatin 40 mg tablet 40 mg PO DAILY 08/30/21 09/29/21 History bisacodyl 10 mg rectal suppository 10 mg PA DAILY PRN 08/30/21 09/29/21 History bupropion HCl 150 mg tablet,12 hr 150 mg PO BID 08/30/21 09/29/21 History sustained-release docusate calcium 50 mg capsule 100 mg PO BID 08/30/21 09/29/21 History empagliflozin 25 mg tablet 25 mg PO QAM 08/30/21 09/29/21 History (Jardiance) fluticasone fur. 100 mcg-umeclid 1 ea INHALATION DAILY 08/30/21 09/29/21 History 62.5 mcg-vilant 25 mcg inhalat.powder (Trelegy Ellipta) glucagon 0.5 mg/0.1 mL 0.5 mg SUBCUT UD PRN 08/30/21 09/29/21 History subcutaneous auto-injector insulin aspart U-100 100 unit/mL 0 sliding scale dose SUBCUT ACHS 08/30/21 09/29/21 History subcutaneous solution (Novolog U-100 Insulin aspart) insulin glargine 100 unit/mL 22 unit SUBCUT BID 08/30/21 09/29/21 History subcutaneous solution (Lantus U-100 Insulin) magnesium hydroxide 400 mg/5 mL 30 ml PO DAILY PRN 08/30/21 09/29/21 History oral suspension (Milk of Magnesia) polyethylene glycol 3350 17 gram 17 g PO DAILY PRN 08/30/21 09/29/21 History oral powder packet (Miralax) pregabalin 75 mg capsule 75 mg PO Q12H 08/30/21 09/29/21 History sennosides 8.6 mg tablet (senna) 8.6 mg PO BID 08/30/21 09/29/21 History sennosides 8.6 mg-docusate sodium 1 tab-cap PO DAILY PRN 08/30/21 09/29/21 History 50 mg tablet (Senexon-S) sertraline 100 mg tablet 200 mg PO DAILY 08/30/21 09/29/21 History silver sulfadiazine 1 % topical 1 applic TOPICAL DAILY 08/30/21 09/29/21 History cream (Silvadene) sodium phosphates 19 gram-7 133 ml PA DAILY PRN 08/30/21 09/29/21 History gram/118 mL enema (Fleet Enema) furosemide 40 mg tablet 40 mg PO BID 09/29/21 09/29/21 History lisinopril 10 mg tablet 10 mg PO DAILY 09/29/21 09/29/21 History metoprolol succinate 25 mg 25 mg PO DAILY 09/29/21 09/29/21 History tablet,extended release 24 hr tiotropium bromide 18 mcg capsule 1 cap INHALATION DAILY 09/29/21 09/29/21 History with inhalation device (Spiriva with HandiHaler) warfarin 5 mg tablet 0 mg PO UD 09/29/21 09/29/21 History Patient History Medical History CAP (community acquired pneumonia) CHF (congestive heart failure) Chronic diastolic (congestive) heart failure COPD (chronic obstructive pulmonary disease) Depression Diabetes mellitus, type II HLD (hyperlipidemia) HTN (hypertension) STAR (obstructive sleep apnea) Respiratory failure Ribs, multiple fractures Urinary tract infection due to ESBL Klebsiella Venous stasis Surgical History History of carpal tunnel surgery Family History Other COPD (chronic obstructive pulmonary disease) Cancer Diabetes Kidney disease Stroke Social History Smoking Status: Former smoker Tobacco Type: Cigarettes Hx Alcohol Use: No Hx Substance Use: No Feels Safe at Home: Yes Review of Systems Review of Systems: Unobtainable due to the patient being on the ventilator Physical Exam Constitutional: + obese Intubated ENMT: ET tube in situ Respiratory: On mechanical ventilation, diminished breath sounds Cardiovascular: RRR, S1-S2 Gastrointestinal (Abdomen): normal bowel sounds, soft, nontender, no hep atosplenomegaly Musculoskeletal: Chronic stasis changes lower extremities Skin: Diffuse rash with what appears to be vesicle or bulla formation/hives Neurologic: Intubated/sedated Genitourinary: Kendall being inserted Results & Data Results & Data ([facility]) Vital Signs (Past 12 Hours) Vital Signs Temp Pulse Pulse Resp BP BP Pulse Ox 09/29/21 11:56 84 33 H 99 09/29/21 11:40 93 09/29/21 11:35 93 H 24 122/81 92 09/29/21 11:30 77 29 H 124/91 92 09/29/21 11:25 74 28 H 140/75 93 09/29/21 11:20 73 27 H 114/67 91 09/29/21 11:15 74 27 H 107/61 86 L 09/29/21 11:10 73 21 95/57 L 80 L 09/29/21 11:08 73 28 H 91 09/29/21 11:05 68 69 18 94/53 L 94/53 L 82 L 09/29/21 11:00 75 79 26 H 83/46 L 82 L 09/29/21 10:57 80 29 H 109/49 L 86 L 09/29/21 09:54 37.8 C H 85 26 H 121/70 92 09/29/21 09:30 81 24 94 09/29/21 09:17 78 27 H 93 09/29/21 09:00 83 22 92 09/29/21 08:55 89 24 121/70 92 Critical Care Results & Data Vital Signs (Past 12 Hours) Vital Signs Temp Pulse Pulse Resp BP BP Pulse Ox 09/29/21 11:56 84 33 H 99 09/29/21 11:40 93 09/29/21 11:35 93 H 24 122/81 92 09/29/21 11:30 77 29 H 124/91 92 09/29/21 11:25 74 28 H 140/75 93 09/29/21 11:20 73 27 H 114/67 91 09/29/21 11:15 74 27 H 107/61 86 L 09/29/21 11:10 73 21 95/57 L 80 L 09/29/21 11:08 73 28 H 91 09/29/21 11:05 68 69 18 94/53 L 94/53 L 82 L 09/29/21 11:00 75 79 26 H 83/46 L 82 L 09/29/21 10:57 80 29 H 109/49 L 86 L 09/29/21 09:54 37.8 C H 85 26 H 121/70 92 09/29/21 09:30 81 24 94 09/29/21 09:17 78 27 H 93 09/29/21 09:00 83 22 92 09/29/21 08:55 89 24 121/70 92 Lab & Micro Results (Past 24 Hours) RBC 3.87 M/uL (4.7-6.1) L 09/29/21 WBC 9.30 K/uL (4.8-10.8) 09/29/21 Hgb 11.3 g/dL (14.0-18.0) L 09/29/21 Hct 34.0 % (42-52) L 09/29/21 MCV 87.9 fL (80-100) 09/29/21 MCH 29.2 pg (25-34) 09/29/21 MCHC 33.2 g/dL (32-36) 09/29/21 RDW Standard Deviation 55.0 fL (36.4-46.3) H 09/29/21 RDW Coefficient of Variation 17.0 % (11.5-14.5) H 09/29/21 Plt Count 232 K/uL (130-400) 09/29/21 MPV 8.8 fL (7.4-10.4) 09/29/21 Neutrophils (%) (Auto) 83.7 % 09/29/21 Lymphocytes (%) (Auto) 8.2 % 09/29/21 Monocytes # (Auto) 0.69 K/uL (0.11-0.59) H 09/29/21 Eosinophils # (Auto) 0.02 K/uL (0-0.5) 09/29/21 Immature Granulocyte % (Auto) 0.5 % 09/29/21 Neutrophils # (Auto) 7.78 K/uL (1.4-6.5) H 09/29/21 Lymphocytes # (Auto) 0.76 K/uL (1.2-3.4) L 09/29/21 Monocytes # (Auto) 0.69 K/uL (0.11-0.59) H 09/29/21 Eosinophils # (Auto) 0.02 K/uL (0-0.5) 09/29/21 Basophils # (Auto) 0.00 K/uL (0-0.2) 09/29/21 Immature Granulocyte # (Auto) 0.05 K/uL (0.00-0.02) H 09/29/21 Na 137 mmol/L (136-145) 09/29/21 K 4.1 mmol/L (3.5-5.1) 09/29/21 Cl 100 mmol/L (98-107) 09/29/21 CO2 27 mmol/L (21-32) 09/29/21 Anion Gap 10.0 (3-11) 09/29/21 BUN 25 mg/dl (7-18) H 09/29/21 Creatinine 1.06 mg/dl (0.6-1.4) 09/29/21 Estimated GFR ( Amer) 83.8 ml/min 09/29/21 Estimated GFR (Non-Af Amer) 72.3 ml/min 09/29/21 BUN/Creatinine Ratio 24.0 (10-20) H 09/29/21 Glu 92 mg/dl (70-99) 09/29/21 Ca 8.4 mg/dl (8.5-10.1) L 09/29/21 Total Bilirubin 0.4 mg/dl (0.2-1) 09/29/21 AST 71 U/L (15-37) H 09/29/21 ALT 75 U/L (12-78) 09/29/21 Alkaline Phosphatase 182 U/L (45-117) H 09/29/21 TP 7.3 gm/dl (6.4-8.2) 09/29/21 Albumin 1.8 gm/dl (3.4-5.0) L 09/29/21 Globulin 5.5 gm/dl (2.5-4.0) H 09/29/21 Albumin/Globulin Ratio 0.3 (0.9-2) L 09/29/21 Calcium Level 8.4 mg/dl (8.5-10.1) L 09/29/21 23:59 09/29/21 Prothromb Time International Ratio 2.4 (0.9-1.1) H 09/29/21 09:12 09/29/21 Venous Blood pH 7.37 (7.36-7.41) 09/29/21 11:05 09/29/21 Venous Blood Partial Pressure CO2 51 mmHg (38-50) H 09/29/21 11:05 09/29/21 Venous Blood Partial Pressure O2 43 mmHg 09/29/21 11:05 09/29/21 Venous Blood HCO3 29 mmol/L 09/29/21 11:05 09/29/21 Venous Blood Base Excess 3.1 mEq/L 09/29/21 11:05 09/29/21 Venous Blood Oxygen Saturation 73.0 % 09/29/21 11:05 09/29/21 Blood Gas Barometric Pressure 726.5 mm/Hg 09/29/21 11:05 09/29/21 Blood Gas Barometric Pressure 726.5 mm/Hg 09/29/21 11:05 09/29/21 Diagnostic Findings (Past 24 Hours) Chest X-Ray 09/29/21 09:00 XR chest 1V portable CLINICAL HISTORY: Chest Pain. COMPARISON STUDY: 09/17/2021 TECHNIQUE: 1 view of the chest FINDINGS: Single frontal view of the chest demonstrates the cardiomediastinal silhouette to be within normal limits. Compared to the previous examination, patchy interstitial and alveolar opacities are present bilaterally. The findings are most characteristic of a viral type pneumonitis. Covid 19 pneumonia should be excluded. There is again suspicion of a small left pleural effusion. No definite right pleural effusion is seen. There is no evidence for vascular congestion. There is no acute osseous pathology. IMPRESSION: Compared to the previous study, patchy interstitial and alveolar opacities bilaterally characteristic of a viral type pneumonitis and probable early Covid 19 pneumonia. There is also suspicion of a small left pleural effusion. ACT 112: Negative or not required by law. Electronically signed by: Luis Pérez M.D. 09/29/2021 9:52 AM Chest X-Ray 09/29/21 10:45 XR chest 1V portable at 10:49 AM CLINICAL HISTORY: Status post intubation. Follow-up suspected Covid pneumonia COMPARISON STUDY: Portable chest on 09/21/2021 at 9:18 AM TECHNIQUE: 1 view of the chest FINDINGS: Single frontal view of the chest demonstrates the cardiomediastinal silhouette to be within normal limits. There has been interval placement of endotracheal tube with its tip approximately 4.3 cm above the paulie. Compared to previous study, bilateral interstitial and alveolar opacities are again seen characteristic of a viral type pneumonitis and Covid 19 pneumonia. There is again suspicion of a small left pleural effusion. There is no evidence for vascular congestion. There is no acute osseous pathology. IMPRESSION: Status post intubation. Bilateral interstitial alveolar opacities and small left pleural effusion are again seen with findings most characteristic of early Covid pneumonia. ACT 112: Negative or not required by law. Electronically signed by: Luis Pérez M.D. 09/29/2021 11:18 AM I & O Totals 24 Hours 09/28/21 09/29/21 09/30/21 06:59 06:59 06:59 Intake Total 1.767 / 1.767 Balance 1.767 / 1.767 Cumulative 09/29/21 08:28 thru 09/29/21 12:18 Intake Total 1.767 Balance 1.767 RT Ventilator Mngmt (Last Documented) Ventilator Ordered Settings Ventilator Support Mode Assist Control 09/29/21 11:56 Respiratory Rate 33 09/29/21 11:56 Ventilator Tidal Volume 380 09/29/21 11:56 Setting Minute Ventilation 9.9 09/29/21 11 :56 Positive End Expiratory 8 09/29/21 11:56 Pressure Fraction of Inspired Oxygen 100 09/29/21 11:56 Ventilator - PT Measurements Respiratory Rate 33 Exhaled Tidal Volume 394 Minute Ventilation 9.9 Peak Inspiratory Airway 23 Pressure Plateau Pressure 21 Respiratory Cycle Inspiratory: 1:1.7 Expiratory Ratio Inspiratory Phase Time 0.80 End-Tidal CO2 30 Static Lung Compliance 30.31 Dynamic Lung Compliance 26.27 Normal Static Lung Compliance 47.00 Patient Measurements Comment Pt in E-204 Coding Level of Care Code Critical Care ea addt'l 30 min Diagnoses Pneumonia due to COVID-19 virus U07.1; J12.82 Hx of fracture of rib Z87.81 Acute respiratory failure J96.01 Respiratory failure complication: hypoxia Pyelonephritis due to Escherichia coli N12; B96.20 Time Spent (min) 85 Comment [id number] (1) Acute respiratory failure Respiratory failure complication: hypoxia Qualified Code(s): J96.01 - Acute respiratory failure with hypoxia
[2021-09-29] MEDS: NOREPINEPHRINE/D5W 8 MG/508 ML BAG IV SCH ×2 (13:15→21:29)
[2021-09-29 13:29] LABS: C Reactive Protein 9.8 mg/dl (0-0.29)
[2021-09-29] MEDS ORDERED: OPTIRAY 320 125ml IV ONE (13:34)
[2021-09-29] MEDS: ERTAPENEM SODIUM 1,000 MG in SODIUM CHLORIDE 0.9% 50 ML IV SCH ×2 (13:59→15:11)
[2021-09-29] MEDS: REMDESIVIR 200 MG in SODIUM CHLORIDE 0.9% 210 ML IV STA ×2 (13:59→15:11)
--- NOTE | 2021-09-29 14:19 | Pharmacy Report ---
Pharmacy Glycemic Short Note 2 - Date of Service September 29, 2021 - Glycemic Short BSG Results (Last 24 hours): 09/29/21 Unknown Glucose 92 OUTPATIENT ANTIDIABETIC REGIMEN: * Lantus 22 units BID * Novolog scale * Jardiance 25 mg daily ASSESSMENT: * Mr Huertas is a 66 y/o M with a PMH of T2DM who presents with complicated UTI + COVID. Patient is currently intubated with pressors active. * Due to the patient's critical illness, will start insulin infusion when BSG greater than 220 mg/dL as this is the standard of care. * Novolog weight-based stress of 3 ordered in interim to track BSGs. PLAN FOR INPATIENT GLYCEMIC CONTROL: * Hold outpatient oral diabetes medications * Basal insulin- hold due to critical illness, start insulin infusion when BSG > 220 mg/dL * Bolus insulin * NovoLog per scale ACHS or Q6hrs while NPO * Goal Range: Low 120 mg/dL - High 150 mg/dL * Correction Factor: 15 mg/dL/unit * Nutritional / Prandial insulin per carb ratio of 1 unit per 4 grams CHO consumed PLAN FOR DISCHARGE: * TBD
[2021-09-29] MEDS ORDERED: SODIUM CHLORIDE IV ONE (14:30)
--- NOTE | 2021-09-29 14:48 | CT Scan Report ---
CT angio chest PE protocol CLINICAL HISTORY: Covid positive. Patient intubated. Evaluate for pulmonary embolus COMPARISON STUDY: Portable chest from 09/29/2021 CT DOSE: 918.22 mGy.cm TECHNIQUE: CT Angio of the chest was performed.followed by image post processing with coronal, and s agittal MIP reformats. Contrast Volume: Optiray 320, 120 ml FINDINGS: Vasculature: There is homogeneous perfusion of the pulmonary vasculature bilaterally. No intraluminal filling defects or evidence for pulmonary embolus is seen. Airway: The airway is clear. No endobronchial lesion is identified. ET tube is in place. Lungs and pleural: Extensive groundglass opacities are present throughout both lungs characteristic o f a viral type pneumonitis and Covid 19 pneumonia. There are small to moderate-sized bilateral pleural effusions with bilateral lower lobe atelectasis/c ollapse. No air bronchograms are seen. Mediastinum: There is no evidence for pathologic adenopathy. The heart size is within normal limits. The thoracic aorta is within normal limits. There is no evidence for pericardial effusion. Upper abdomen:The adrenal glands are normal bilaterally. An NG tube extends into the distal body of t he stomach. Osseous structures: There is no acute osseous pathology. Degenerative changes are seen within the sp ine. Impression: 1. No CTA evidence for pulmonary embolus. 2. Extensive groundglass opacities are present throughout both lungs characteristic of a viral type p neumonitis and Covid 19 pneumonia. 3. Small to moderate-sized bilateral pleural effusions with bilateral lower lobe atelectasis/collapse . ACT 112: Negative or not required by law. Electronically signed by: Luis Pérez M.D. 09/29/2021 2:46 PM
[2021-09-29] MEDS: FAMOTIDINE 20 MG in SYRINGE 3 ML IV SCH (15:11)
[2021-09-29] MEDS: INSULIN ASPART 100 UNITS/ML 3 ML PEN SC SCH ×2 (15:49→20:59)
[2021-09-29] MEDS: ICU ELECTROLYTE REPLACEMENT PROTOCOL SCH (17:55)
[2021-09-29] MEDS: NORMOSOL-R 1,000 ML IV SCH (17:55)
[2021-09-29] MEDS ORDERED: SENNA 8.6 MG TAB PO SCH (21:00)
[2021-09-29] MEDS ORDERED: ENOXAPARIN 1 MG/KG SC SCH (21:00)
[2021-09-29] MEDS ORDERED: ENOXAPARIN INJ 120 MG/0.8 ML SYR SQ SCH (21:00)
[2021-09-29] MEDS ORDERED: buPROPion SR 150 MG TABCR PO SCH (21:00)
[2021-09-29] MEDS ORDERED: SUCCINYLCHOLINE CHLORIDE 20 MG/ML 10 ML VIAL IV ONE (21:12)
[2021-09-29] MEDS ORDERED: KETAMINE HCL INJ 50 MG/ML 10 ML VIAL IV ONE (21:12)
[2021-09-29] MEDS: DOCUSATE SODIUM 100 MG CAP PO SCH (21:28)
[2021-09-29] MEDS: buPROPion HCl 100 MG TABLET PO SCH (21:28)
[2021-09-30] MEDS: INSULIN ASPART 100 UNITS/ML 3 ML PEN SC SCH ×5 (01:18→15:36)
[2021-09-30] MEDS: FAMOTIDINE 20 MG in SYRINGE 3 ML IV SCH ×2 (01:30→12:21)
[2021-09-30 03:59] LABS: iSTAT Arterial Blood Gas HCO3 24 meg/L (19-24); iSTAT Arterial Blood Gas pCO2 38 mmHg (35-46); iSTAT Arterial Blood Gas pO2 71 mmHg (80-95); iSTAT Carbon Dioxide 25 mmol/L (24-31); iSTAT FiO2 40 %; iSTAT Site Art Line
[2021-09-30] MEDS: propofoL 1,000 MG/100 ML VIAL IV SCH ×3 (05:40→14:18)
[2021-09-30 06:22] LABS: Basophils # (auto) 0.02 K/uL (0-0.2); Basophils % (auto) 0.2 %; Hemoglobin 11.5 g/dL (14.0-18.0); Immature Granulocytes # (auto) 0.09 K/uL (0.00-0.02); Immature Granulocytes % (auto) 0.7 %; Lymphocytes # (auto) 1.18 K/uL (1.2-3.4); Lymphocytes % (auto) 9.6 %; Mean Corpuscular Hemoglobin 28.8 pg (25-34); Mean Corpuscular Hgb Conc 32.9 g/dL (32-36); Mean Corpuscular Volume 87.5 fL (80-100); Mean Platelet Volume 9.3 fL (7.4-10.4); Monocytes # (auto) 0.86 K/uL (0.11-0.59); Neutrophils # (auto) 10.12 K/uL (1.4-6.5); Neutrophils % (auto) 82.5 %; Platelet Count 289 K/uL (130-400); RDW Coefficient of Variation 16.9 % (11.5-14.5); RDW Standard Deviation 54.2 fL (36.4-46.3); White Blood Count 12.27 K/uL (4.8-10.8)
[2021-09-30 06:27] LABS: INR 2.8 (0.9-1.1); Prothrombin Time 26.6 Seconds (9.0-12.0)
[2021-09-30 06:55] LABS: Albumin Level 1.5 gm/dl (3.4-5.0); BUN Creatinine Ratio 30.2 (10-20); Bilirubin Direct 0.2 mg/dl (0-0.2); Calcium 8.6 mg/dl (8.5-10.1); Creatinine Clr Calc Pharmacy 100.6 ml/min; Est GFR (African American) 100.7 ml/min; Est GFR (Non-African American) 86.9 ml/min; Magnesium 2.3 mg/dl (1.8-2.4); Potassium 3.8 mmol/L (3.5-5.1)
[2021-09-30 06:58] LABS: Bilirubin,Total 0.4 mg/dl (0.2-1); Phosphorus 3.7 mg/dl (2.5-4.9); Total Protein 6.3 gm/dl (6.4-8.2)
[2021-09-30] MEDS: ICU ELECTROLYTE REPLACEMENT PROTOCOL SCH ×2 (07:14→18:31)
[2021-09-30 07:34] LABS: Estimated Average Glucose 169 mg/dl; Hemoglobin A1C 7.5 % (4.5-5.6)
--- NOTE | 2021-09-30 08:14 | XRay Report ---
XR chest 1V portable CLINICAL HISTORY: f/u COMPARISON STUDY: Chest radiograph and chest CT September 29, 2021. FINDINGS: Tip of endotracheal tube is 3.3 cm above the paulie. There is no pneumothorax. Small bilate ral pleural effusions with bibasilar opacities persist. Additional airspace opacities within the lung s are again noted. Tip of the left subclavian central line is above the upper aspect of this image. T his is within the left internal jugular vein. Tip of nasogastric tube is below lower aspect of this i mage but at least within the body of the stomach. Several mildly displaced subacute rib fractures are noted. IMPRESSION: 1. Malpositioned left subclavian central line. Tip within the left internal jugular vein. Repositioni ng is suggested. This finding will be called/faxed to the ordering provider at time of dictation. 2. Satisfactory positioning of the endotracheal tube. 3. Small bilateral pleural effusions with persistent bibasilar opacities which could reflect consolid ation or atelectasis. Additional airspace opacities throughout the lungs represent an infectious proc ess. ACT 112: Negative or not required by law. Electronically signed by: Jaime Childs M.D. 09/30/2021 8:12 AM
[2021-09-30] MEDS: NOREPINEPHRINE/D5W 8 MG/508 ML BAG IV SCH ×2 (08:56→13:41)
[2021-09-30] MEDS: dexAMETHasone 6 MG in SYRINGE 0 ML IV SCH (08:57)
[2021-09-30] MEDS: buPROPion HCl 100 MG TABLET PO SCH ×2 (08:57→13:00)
[2021-09-30] MEDS: SILVER SULFADIAZINE 1% CR 50 GM JAR TOP SCH (08:58)
[2021-09-30] MEDS ORDERED: INSULIN HUMAN NPH SC SCH (09:00)
[2021-09-30] MEDS: POTASSIUM CHLORIDE 20 MEQ/15 ML UDC NG SCH ×2 (09:06→12:20)
[2021-09-30] MEDS: DOCUSATE SODIUM 100 MG CAP PO SCH (09:10)
[2021-09-30] MEDS: ERTAPENEM SODIUM 1,000 MG in SODIUM CHLORIDE 0.9% 50 ML IV SCH (12:24)
--- NOTE | 2021-09-30 12:52 | Critical Care Progress Note ---
Date of Service September 30, 2021 Assessment & Plan (1) Pneumonia due to COVID-19 virus: (2) Hx of fracture of rib: (3) Acute respiratory failure: (4) Pyelonephritis due to Escherichia coli: Plan: Impression: 66-year-old morbidly obese male with multiple medical comorbidities admitted from rehab after extended stay at [facility] for rib fractures, sternal fractures, needing intubation mechanical ventilation as well as acute renal failure with history of ESBL Klebsiellai urinary tract infection now with hypoxemic respiratory failure, Covid positive, and purulent urine. Recommendations: 1. Neurologic: Weaning sedation given improved vent parameters. Hold Lyrica and Zoloft 2. Pulmonary: Secondary to COVID-19 pneumonia. Chest x-ray reviewed with multifocal infiltrates and dense right lower lobe consolidation with a small parapneumonic effusion. Weaning ventilator parameters. Will attempt spontaneous breathing trial today. 3. Cardiovascular: Lactate within normal limits. No evidence of pulmonary bolus him seen on CTA. No issue with hemodynamics. 4. Renal: No current issues. 5. ID: Covid positive. Continue Decadron 6 mg daily for a total of 10 days. Given the fact that he appears to be actively infected, I would be reluctant to consider other immune suppression agents. Continue ertapenem given the patient's ESBL and await cultures. Pharmacy to dose antibiotics. May need allergy input depending on his clinical response. Contact isolation recommended. ID consultation may be required 6. GI: H2 mary. N.p.o. LFTs improving. No need to start tube feeds if unable to extubate. 7. Heme-onc: No current issues continue to follow. INR continues to be elevated for unclear reasons. Possibly due to malnutrition. Will give 5 mg of IV vitamin K today. Recheck INR tomorrow. Hemoglobin stable. 40 mg twice daily subcutaneous Lovenox initiated for DVT prophylaxis. 8. Endocrine: Glycemic control per pharmacy. CRITICAL CARE TIME - I have personally spent 36 minutes of critical care time in the direct management of this patient. This is a life/limb threatening event. This includes time spent evaluating patient, direct bedside care, chart review, placing orders, interpretation of diagnostic studies, discussion with consultants, patient, and family members, as well as other required patient management activities. This time is exclusive of all separately billable procedures, and teaching time and separate from and in addition to any other critical care service time. Admission and Anticipated Discharge Date Admission Date: September 29, 2021 Subjective Patient seen and examined this morning. On low doses of numerous sedatives. Responsive to painful stimuli. Currently requiring minimal vent support with an FiO2 40% and a PEEP of 5. Review of Systems Review of Systems: Unobtainable due to cognitive status and Unobtainable due to endotracheal tube Physical Exam Constitutional: + obese Intubated ENMT: ET tube in situ Respiratory: On mechanical ventilation, diminished breath sounds Cardiovascular: RRR, S1-S2 Gastrointestinal (Abdomen): normal bowel sounds, soft, nontender, no hepatosplenomegaly Musculoskeletal: Chronic stasis changes lower extremities Neurologic: Intubated/sedated Genitourinary: Kendall being inserted Results & Data Results & Data ([facility]) Vital Signs (Past 12 Hours) Vital Signs Temp Pulse Resp BP Pulse Ox 09/30/21 12:00 37.9 C H 89 26 H 145/80 H 93 09/30/21 11:00 37.9 C H 88 26 H 149/70 H 93 09/30/21 10:56 88 26 H 90 09/30/21 10:00 37.8 C H 91 H 26 H 132/78 91 09/30/21 09:30 37.8 C H 86 30 H 156/72 H 91 09/30/21 09:00 37.7 C H 88 26 H 144/77 H 91 09/30/21 08:30 37.6 C H 90 26 H 143/88 H 91 09/30/21 08:00 37.6 C H 85 26 H 141/87 H 92 09/30/21 07:50 84 26 H 91 09/30/21 07:30 37.5 C 85 26 H 146/73 H 92 09/30/21 07:00 37.5 C 82 26 H 162/83 H 91 09/30/21 06:30 37.4 C 85 26 H 154/93 H 91 09/30/21 06:00 37.4 C 79 26 H 150/73 H 92 09/30/21 05:30 37.3 C 76 26 H 152/73 H 93 09/30/21 05:00 37.3 C 81 26 H 132/73 93 09/30/21 04:30 37.3 C 77 23 140/78 91 09/30/21 04:00 37.3 C 81 26 H 144/71 H 93 09/30/21 03:43 76 26 H 97 09/30/21 03:30 37.3 C 73 26 H 126/71 96 09/30/21 03:00 37.2 C 83 26 H 143/69 H 97 09/30/21 02:30 37.2 C 86 26 H 148/76 H 97 09/30/21 02:00 37.2 C 83 26 H 145/77 H 97 09/30/21 01:30 37.2 C 86 26 H 97 09/30/21 01:00 37.1 C 81 19 148/72 H 97 Coding Level of Care Code Critical Care 1st 30-74 mins Diagnoses Pneumonia due to COVID-19 virus U07.1; J12.82 Hx of fracture of rib Z87.81 Acute respiratory failure J96.01 Respiratory failure complication: hypoxia Pyelonephritis due to Escherichia coli N12; B96.20 Time Spent (min) 36 (1) Acute respiratory failure Respiratory failure complication: hypoxia Qualified Code(s): J96.01 - Acute respiratory failure with hypoxia
[2021-09-30] MEDS ORDERED: PHYTONADIONE 5 MG in SODIUM CHLORIDE 0.9% 50 ML IV ONE (13:00)
--- NOTE | 2021-09-30 13:02 | Hospitalist Progress Note ---
Date of Service September 30, 2021 Assessment & Plan (1) Acute respiratory failure: (2) STAR (obstructive sleep apnea): (3) COPD (chronic obstructive pulmonary disease): (4) Diabetes mellitus, type II: (5) Urinary tract infection due to ESBL Klebsiella: (6) Pneumonia due to COVID-19 virus: Plan: Acute respiratory failure due to COVID-19 pneumonia requiring mechanical ventilation. 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 declined continuing this. No PE on CT PE. INR is therapeutic as patient was on warfarin prior to presentation. Continue therapeutic Lovenox for now From EPIC review, UCx from 09/27/21 growing >100,000 LF GNR UCx from 08/31/21, 08/27/21, 08/16/21 grew Klebsiella pneumonia ESBL Urine culture drawn on admission growing GNR. Continue ertapenem for now and consult ID for recurrent ESBL UTI Continue antifungal cream for skin rash. Likely Candidal skin rash had reported patient had VIt D deficiency and had not been on treatment recently. Vit D level 19.2. Vit D ordered Admission and Anticipated Discharge Date Admission Date: September 29, 2021 Subjective 66 y/o M with PMH DM II, HTN, HLD, STAR, depression, chronic bronchitis, chronic diastolic heart failure, venous stasis, obesitywho was [facility]ness of breath. Being managed acute respiratory failure with hypoxia due to COVID 19 pneumonia Patient seen and examined. Currently sedated and intubated. Review of Systems Review of Systems: Unobtainable due to endotracheal tube Physical Exam Constitutional: + obese ENMT: ETT in situ Respiratory: On mechanical ventilator Diminished breath sounds Cardiovascular: RRR S1 S2 Gastrointestinal (Abdomen): normal bowel sounds, soft, nontender, no hepatosplenomegaly Skin: Erythematous rash in groin Neurologic: Sedated and intubated Genitourinary: Kendall in situ Results & Data Results & Data ([facility]) Vital Signs (Past 12 Hours) Vital Signs Temp Pulse Resp BP Pulse Ox 09/30/21 12:00 37.9 C H 89 26 H 145/80 H 93 09/30/21 11:00 37.9 C H 88 26 H 149/70 H 93 09/30/21 10:56 88 26 H 90 09/30/21 10:00 37.8 C H 91 H 26 H 132/78 91 09/30/21 09:30 37.8 C H 86 30 H 156/72 H 91 09/30/21 09:00 37.7 C H 88 26 H 144/77 H 91 09/30/21 08:30 37.6 C H 90 26 H 143/88 H 91 09/30/21 08:00 37.6 C H 85 26 H 141/87 H 92 09/30/21 07:50 84 26 H 91 09/30/21 07:30 37.5 C 85 26 H 146/73 H 92 09/30/21 07:00 37.5 C 82 26 H 162/83 H 91 09/30/21 06:30 37.4 C 85 26 H 154/93 H 91 09/30/21 06:00 37.4 C 79 26 H 150/73 H 92 09/30/21 05:30 37.3 C 76 26 H 152/73 H 93 09/30/21 05:00 37.3 C 81 26 H 132/73 93 09/30/21 04:30 37.3 C 77 23 140/78 91 09/30/21 04:00 37.3 C 81 26 H 144/71 H 93 09/30/21 03:43 76 26 H 97 09/30/21 03:30 37.3 C 73 26 H 126/71 96 09/30/21 03:00 37.2 C 83 26 H 143/69 H 97 09/30/21 02:30 37.2 C 86 26 H 148/76 H 97 09/30/21 02:00 37.2 C 83 26 H 145/77 H 97 09/30/21 01:30 37.2 C 86 26 H 97 Laboratory Results Abnormal lab results 09/29/21 09/29/21 09/30/21 Range/Units 15:43 20:05 01:11 WBC (4.8-10.8) K/uL RBC (4.7-6.1) M/uL Hgb (14.0-18.0) g/dL Hct (42-52) % RDW Std Deviation (36.4-46.3) fL RDW Coeff of Timur (11.5-14.5) % Neut # (Auto) (1.4-6.5) K/uL Lymph # (Auto) (1.2-3.4) K/uL Harris # (Auto) (0.11-0.59) K/uL Immature Gran # (Auto) (0.00-0.02) K/uL PT (9.0-12.0) Seconds INR (0.9-1.1) POC pO2 (80-95) mmHg Sodium (136-145) mmol/L BUN (7-18) mg/dl BUN/Creatinine Ratio (10-20) Glucose (70-99) mg/dl POC Glucose (70-99) mg/dl POC Glucose (other) 165 H 174 H 162 H (70-99) mg/dl Hemoglobin A1c (4.5-5.6) % AST (15-37) U/L Alkaline Phosphatase (45-117) U/L Total Protein (6.4-8.2) gm/dl Albumin (3.4-5.0) gm/dl 25-OH Vitamin D Total (30-100) ng/ml 09/30/21 09/30/21 09/30/21 Range/Units 03:45 05:11 05:40 WBC 12.27 H (4.8-10.8) K/uL RBC 4.00 L (4.7-6.1) M/uL Hgb 11.5 L (14.0-18.0) g/dL Hct 35.0 L (42-52) % RDW Std Deviation 54.2 H (36.4-46.3) fL RDW Coeff of Timur 16.9 H (11.5-14.5) % Neut # (Auto) 10.12 H (1.4-6.5) K/uL Lymph # (Auto) 1.18 L (1.2-3.4) K/uL Harris # (Auto) 0.86 H (0.11-0.59) K/uL Immature Gran # (Auto) 0.09 H (0.00-0.02) K/uL PT (9.0-12.0) Seconds INR (0.9-1.1) POC pO2 71 L (80-95) mmHg Sodium (136-145) mmol/L BUN (7-18) mg/dl BUN/Creatinine Ratio (10-20) Glucose (70-99) mg/dl POC Glucose (70-99) mg/dl POC Glucose (other) 131 H (70-99) mg/dl Hemoglobin A1c (4.5-5.6) % AST (15-37) U/L Alkaline Phosphatase (45-117) U/L Total Protein (6.4-8.2) gm/dl Albumin (3.4-5.0) gm/dl 25-OH Vitamin D Total (30-100) ng/ml 09/30/21 09/30/21 09/30/21 Range/Units 05:40 05:40 05:40 WBC (4.8-10.8) K/uL RBC (4.7-6.1) M/uL Hgb (14.0-18.0) g/dL Hct (42-52) % RDW Std Deviation (36.4-46.3) fL RDW Coeff of Timur (11.5-14.5) % Neut # (Auto) (1.4-6.5) K/uL Lymph # (Auto) (1.2-3.4) K/uL Harris # (Auto) (0.11-0.59) K/uL Immature Gran # (Auto) (0.00-0.02) K/uL PT 26.6 H (9.0-12.0) Seconds INR 2.8 H (0.9-1.1) POC pO2 (80-95) mmHg Sodium 135 L (136-145) mmol/L BUN 27 H (7-18) mg/dl BUN/Creatinine Ratio 30.2 H (10-20) Glucose 128 H (70-99) mg/dl POC Glucose (70-99) mg/dl POC Glucose (other) (70-99) mg/dl Hemoglobin A1c 7.5 H (4.5-5.6) % AST 49 H (15-37) U/L Alkaline Phosphatase 155 H (45-117) U/L Total Protein 6.3 L (6.4-8.2) gm/dl Albumin 1.5 L (3.4-5.0) gm/dl 25-OH Vitamin D Total (30-100) ng/ml 09/30/21 09/30/21 09/30/21 Range/Units 05:40 08:54 12:20 WBC (4.8-10.8) K/uL RBC (4.7-6.1) M/uL Hgb (14.0-18.0) g/dL Hct (42-52) % RDW Std Deviation (36.4-46.3) fL RDW Coeff of Timur (11.5-14.5) % Neut # (Auto) (1.4-6.5) K/uL Lymph # (Auto) (1.2-3.4) K/uL Harris # (Auto) (0.11-0.59) K/uL Immature Gran # (Auto) (0.00-0.02) K/uL PT (9.0-12.0) Seconds INR (0.9-1.1) POC pO2 (80-95) mmHg Sodium (136-145) mmol/L BUN (7-18) mg/dl BUN/Creatinine Ratio (10-20) Glucose (70-99) mg/dl POC Glucose (70-99) mg/dl POC Glucose (other) 122 H 122 H (70-99) mg/dl Hemoglobin A1c (4.5-5.6) % AST (15-37) U/L Alkaline Phosphatase (45-117) U/L Total Protein (6.4-8.2) gm/dl Albumin (3.4-5.0) gm/dl 25-OH Vitamin D Total 19.2 L (30-100) ng/ml 09/30/21 Range/Units 15:31 WBC (4.8-10.8) K/uL RBC (4.7-6.1) M/uL Hgb (14.0-18.0) g/dL Hct (42-52) % RDW Std Deviation (36.4-46.3) fL RDW Coeff of Timur (11.5-14.5) % Neut # (Auto) (1.4-6.5) K/uL Lymph # (Auto) (1.2-3.4) K/uL Harris # (Auto) (0.11-0.59) K/uL Immature Gran # (Auto) (0.00-0.02) K/uL PT (9.0-12.0) Seconds INR (0.9-1.1) POC pO2 (80-95) mmHg Sodium (136-145) mmol/L BUN (7-18) mg/dl BUN/Creatinine Ratio (10-20) Glucose (70-99) mg/dl POC Glucose 101 H (70-99) mg/dl POC Glucose (other) (70-99) mg/dl Hemoglobin A1c (4.5-5.6) % AST (15-37) U/L Alkaline Phosphatase (45-117) U/L Total Protein (6.4-8.2) gm/dl Albumin (3.4-5.0) gm/dl 25-OH Vitamin D Total (30-100) ng/ml (1) Acute respiratory failure Respiratory failure complication: hypoxia Qualified Code(s): J96.01 - Acute respiratory failure with hypoxia
[2021-09-30] MEDS: NORMOSOL-R 1,000 ML IV SCH (13:46)
--- NOTE | 2021-09-30 14:00 | Pharmacy Report ---
Pharmacy Glycemic Short Note 2 - Date of Service September 30, 2021 - Glycemic Short BSG Results (Last 24 hours): 09/29/21 09/30/21 09/30/21 15:43 01:11 05:11 Glucose POC Glucose (other) 165 H 162 H 131 H 09/30/21 09/30/21 09/30/21 05:40 08:54 12:20 Glucose 128 H POC Glucose (other) 122 H 122 H OUTPATIENT ANTIDIABETIC REGIMEN: * Lantus 22 units BID * Novolog scale * Jardiance 25 mg daily * A1c = 7.5% 09/30/21 ASSESSMENT: 09/30 * Patient remains intubated, sedated this AM * IV dexamethasone 6mg daily continues. * Norepi weaned off this AM * No tube feeds initiated thus far * BSGs in low 100s prior to receiving IV dexamethasone. Will add low dose NPH to current insulin regimen to combat steroid induced hyperglycemia today and reassess need tomorrow. Anticipate need for NPH if tube feeds initiated, likely in higher dose. 09/29 * Mr Huertas is a 66 y/o M with a PMH of T2DM who presents with complicated UTI + COVID. Patient is currently intubated with pressors active. * Due to the patient's critical illness, will start insulin infusion when BSG greater than 220 mg/dL as this is the standard of care. * Novolog weight-based stress of 3 ordered in interim to track BSGs. PLAN FOR INPATIENT GLYCEMIC CONTROL: * Hold outpatient oral diabetes medications * Basal insulin- NPH 15 units (~0.15units/kg) SQ daily along with IV dexamethasone * Bolus insulin * NovoLog per scale Q4hrs while NPO * Goal Range: Low 120 mg/dL - High 160 mg/dL * Correction Factor: 15 mg/dL/unit * Nutritional / Prandial insulin per carb ratio of 1 unit per 4 grams CHO consumed PLAN FOR DISCHARGE: * TBD
[2021-09-30] MEDS: ENOXAPARIN INJ 40 MG/0.4 ML SYR SQ SCH (14:18)
[2021-10-01] MEDS: FAMOTIDINE 20 MG in SYRINGE 3 ML IV SCH ×2 (00:38→14:32)
[2021-10-01] MEDS: buPROPion HCl 100 MG TABLET PO SCH ×4 (00:39→20:34)
[2021-10-01] MEDS: DOCUSATE SODIUM SYRUP 100 MG/10 ML UDC PO SCH ×3 (00:39→20:34)
[2021-10-01] MEDS: ENOXAPARIN INJ 40 MG/0.4 ML SYR SQ SCH ×2 (00:39→13:21)
[2021-10-01] MEDS: SENNOSIDES 8.8 MG/5 ML UDC PO SCH ×2 (00:39→20:34)
[2021-10-01] MEDS: INSULIN ASPART 100 UNITS/ML 3 ML PEN SC SCH ×7 (00:40→20:34)
[2021-10-01] MEDS ORDERED: DEXTROSE 50% 50 ML SYRINGE IV ONE (04:13)
[2021-10-01 05:25] LABS: iSTAT Arterial Blood Gas HCO3 29 meg/L (19-24); iSTAT Arterial Blood Gas pCO2 55 mmHg (35-46); iSTAT Arterial Blood Gas pH 7.34 (7.35-7.45); iSTAT Arterial Blood Gas pO2 81 mmHg (80-95); iSTAT Carbon Dioxide 31 mmol/L (24-31); iSTAT FiO2 60 %; iSTAT Site Art Line
[2021-10-01 06:41] LABS: INR 1.3 (0.9-1.1); Prothrombin Time 12.6 Seconds (9.0-12.0)
[2021-10-01 06:46] LABS: Basophils # (auto) 0.01 K/uL (0-0.2); Basophils % (auto) 0.1 %; Eosinophils # (auto) 0.01 K/uL (0-0.5); Eosinophils % (auto) 0.1 %; Hematocrit (blood only) 33.9 % (42-52); Immature Granulocytes # (auto) 0.05 K/uL (0.00-0.02); Immature Granulocytes % (auto) 0.5 %; Lymphocytes # (auto) 0.93 K/uL (1.2-3.4); Lymphocytes % (auto) 9.7 %; Mean Corpuscular Hemoglobin 28.6 pg (25-34); Mean Corpuscular Hgb Conc 32.4 g/dL (32-36); Mean Corpuscular Volume 88.1 fL (80-100); Mean Platelet Volume 9.3 fL (7.4-10.4); Monocytes # (auto) 0.55 K/uL (0.11-0.59); Monocytes % (auto) 5.7 %; Neutrophils # (auto) 8.08 K/uL (1.4-6.5); Neutrophils % (auto) 83.9 %; Platelet Count 266 K/uL (130-400); RDW Coefficient of Variation 17.4 % (11.5-14.5); RDW Standard Deviation 56.2 fL (36.4-46.3); Red Blood Count 3.85 M/uL (4.7-6.1); White Blood Count 9.63 K/uL (4.8-10.8)
[2021-10-01 07:13] LABS: Albumin Level 1.6 gm/dl (3.4-5.0); BUN Creatinine Ratio 31.5 (10-20); Bilirubin Direct 0.2 mg/dl (0-0.2); Calcium 8.8 mg/dl (8.5-10.1); Est GFR (African American) 112.5 ml/min; Est GFR (Non-African American) 97.1 ml/min; Magnesium 2.1 mg/dl (1.8-2.4); Potassium 3.8 mmol/L (3.5-5.1)
[2021-10-01 07:27] LABS: Bilirubin,Total 0.3 mg/dl (0.2-1); Phosphorus 3.2 mg/dl (2.5-4.9); Total Protein 6.8 gm/dl (6.4-8.2)
[2021-10-01] MEDS: ICU ELECTROLYTE REPLACEMENT PROTOCOL SCH ×2 (07:53→07:54)
[2021-10-01] MEDS ORDERED: FUROSEMIDE 40 MG/4 ML VIAL IV ONE (07:57)
[2021-10-01] MEDS ORDERED: LABETALOL HCL IV 5 MG/ML 20ML IV PRN (07:59)
--- NOTE | 2021-10-01 09:16 | XRay Report ---
XR chest 1V portable CLINICAL HISTORY: Follow-up pleural effusions and bibasilar atelectasis. Status post extubation. COMPARISON STUDY: 09/30/2021 TECHNIQUE: 1 view of the chest FINDINGS: Single frontal view of the chest demonstrates the heart to again be enlarged. Endotracheal tube has b een removed. Left subclavian catheter is again in place with its tip again extending into the left ju gular vein. It again should be repositioned. There is again evidence for small bilateral pleural effu sions and bibasilar atelectasis. No alveolar opacities are identified. There is no evidence for vascu lar congestion. There is no acute osseous pathology. IMPRESSION: Status post extubation. Small bilateral pleural effusions and bibasilar atelectasis are a gain seen. Tip of left subclavian catheter again extends into the left jugular vein and should be rep ositioned. These results will again be communicated to the floor. ACT 112: Negative or not required by law. Electronically signed by: Luis Pérez M.D. 10/01/2021 9:15 AM
[2021-10-01] MEDS: SILVER SULFADIAZINE 1% CR 50 GM JAR TOP SCH (09:51)
[2021-10-01] MEDS: dexAMETHasone 6 MG in SYRINGE 0 ML IV SCH (09:52)
[2021-10-01] MEDS: POTASSIUM CHLORIDE / WTR 10 MEQ/100 ML PLCT IV SCH ×4 (09:52→12:53)
[2021-10-01] MEDS: CHOLECALCIFEROL 1,000 UNITS 25 MCG TAB PO SCH (09:52)
[2021-10-01] MEDS ORDERED: VANCOMYCIN HCL 2,250 MG in SODIUM CHLORIDE 0.9% 500 ML IV STA (10:39)
[2021-10-01] MEDS ORDERED: VANCOMYCIN CONSULT ACTIVE PRN (10:39)
[2021-10-01] MEDS ORDERED: LINEZOLID 600 MG/300 ML BAG IV SCH (11:00)
--- NOTE | 2021-10-01 11:15 | Hospitalist Progress Note ---
Date of Service October 01, 2021 Assessment & Plan (1) Acute respiratory failure: (2) STAR (obstructive sleep apnea): (3) COPD (chronic obstructive pulmonary disease): (4) Diabetes mellitus, type II: (5) Urinary tract infection due to ESBL Klebsiella: (6) Pneumonia due to COVID-19 virus: Plan: Acute respiratory failure due to COVID-19 pneumonia requiring mechanical ventilation. ESBL Klebsiella UTI Extubated yesterday Continue dexamethasone Patient had got 1 dose of remdesivir on admission. declined continuing this. No PE on CT PE. INR is subtherapeutic today. Was on warfarin prior to admission Continue therapeutic Lovenox for now [employer] on board Got lasix today From EPIC review, UCx from 09/27/21 growing >100,000 LF GNR UCx from 08/31/21, 08/27/21, 08/16/21 grew Klebsiella pneumonia ESBL Urine culture drawn on admission growing GNR. Continue ertapenem for now and consult ID for recurrent ESBL UTI Sputum culture groin MRSA Started on vancomycin Continue antifungal cream for skin rash. Likely Candidal skin rash had reported patient had VIt D deficiency and had not been on treatment recently. Vit D level 19.2. Vit D ordered had reported patient had difficulty swallowing. Currently being evaluated by speech therapist. Will get fees study today. Remain n.p.o. for now until full speech evaluation Admission and Anticipated Discharge Date Admission Date: September 29, 2021 Subjective 66 y/o M with PMH DM II, HTN, HLD, STAR, depression, chronic bronchitis, chronic diastolic heart failure, venous stasis, obesitywho [facility]. Being managed acute respiratory failure with hypoxia due to COVID 19 pneumonia Was intubated in ER on admission Extubated yesterday afternoon Patient seen and examined. Currently reports cough, sore throat and hoarse voice due to patient may remove endotracheal tube. Denies any chest pain, palpitations Denies any nausea, vomiting, abdominal pain, diarrhea Reports weakness. Has a Kendall catheter in situ. Physical Exam Constitutional: + obese; no acute distress Eyes: PERRL, conjunctivae normal, anicteric sclerae Respiratory: On high flow nasal cannula, no respiratory distress, diminished breath sounds bilaterally Cardiovascular: RRR, S1-S2 Gastrointestinal (Abdomen): normal bowel sounds, soft, nontender, no hepatosplenomegaly Musculoskeletal: Chronic stasis changes Skin: Erythematous rash around perineum and groin [candidal] Neurologic: Alert and oriented to person and place. Follows commands. No focal deficits Psychiatric: Euthymic affect Genitourinary: Kendall in situ Results & Data Results & Data ([facility]) Vital Signs (Past 12 Hours) Vital Signs Temp Pulse Pulse Resp BP Pulse Ox 10/01/21 08:42 85 25 H 93 10/01/21 08:00 152/53 H 10/01/21 07:00 37.4 C 96 H 27 H 94 10/01/21 06:00 37.6 C H 93 H 26 H 156/83 H 94 10/01/21 05:00 37.6 C H 88 26 H 94 10/01/21 04:00 37.5 C 93 H 27 H 146/51 H 93 10/01/21 03:24 93 H 24 93 10/01/21 03:00 37.5 C 96 H 26 H 94 10/01/21 02:00 37.4 C 97 H 23 93 10/01/21 01:00 37.4 C 92 H 23 93 10/01/21 00:00 37.2 C 84 25 H 120/51 L 94 09/30/21 23:25 82 20 93 Laboratory Results Abnormal lab results 09/29/21 09/30/21 10/01/21 Range/Units 20:05 15:31 04:04 RBC (4.7-6.1) M/uL Hgb (14.0-18.0) g/dL Hct (42-52) % RDW Std Deviation (36.4-46.3) fL RDW Coeff of Timur (11.5-14.5) % Neut # (Auto) (1.4-6.5) K/uL Lymph # (Auto) (1.2-3.4) K/uL Immature Gran # (Auto) (0.00-0.02) K/uL PT (9.0-12.0) Seconds INR (0.9-1.1) POC pH (7.35-7.45) POC pCO2 (35-46) mmHg POC HCO3 (19-24) leah/L POC Base Excess (-9-1.8) leah/L BUN (7-18) mg/dl BUN/Creatinine Ratio (10-20) Glucose (70-99) mg/dl POC Glucose 101 H 65 L* (70-99) mg/dl POC Glucose (other) 174 H (70-99) mg/dl AST (15-37) U/L Alkaline Phosphatase (45-117) U/L Albumin (3.4-5.0) gm/dl 10/01/21 10/01/21 10/01/21 Range/Units 04:33 05:05 05:51 RBC 3.85 L (4.7-6.1) M/uL Hgb 11.0 L (14.0-18.0) g/dL Hct 33.9 L (42-52) % RDW Std Deviation 56.2 H (36.4-46.3) fL RDW Coeff of Timur 17.4 H (11.5-14.5) % Neut # (Auto) 8.08 H (1.4-6.5) K/uL Lymph # (Auto) 0.93 L (1.2-3.4) K/uL Immature Gran # (Auto) 0.05 H (0.00-0.02) K/uL PT (9.0-12.0) Seconds INR (0.9-1.1) POC pH 7.34 L (7.35-7.45) POC pCO2 55 H (35-46) mmHg POC HCO3 29 H (19-24) leah/L POC Base Excess 4.0 H (-9-1.8) leah/L BUN (7-18) mg/dl BUN/Creatinine Ratio (10-20) Glucose (70-99) mg/dl POC Glucose 146 H (70-99) mg/dl POC Glucose (other) (70-99) mg/dl AST (15-37) U/L Alkaline Phosphatase (45-117) U/L Albumin (3.4-5.0) gm/dl 10/01/21 10/01/21 10/01/21 Range/Units 05:51 05:51 12:58 RBC (4.7-6.1) M/uL Hgb (14.0-18.0) g/dL Hct (42-52) % RDW Std Deviation (36.4-46.3) fL RDW Coeff of Timur (11.5-14.5) % Neut # (Auto) (1.4-6.5) K/uL Lymph # (Auto) (1.2-3.4) K/uL Immature Gran # (Auto) (0.00-0.02) K/uL PT 12.6 H (9.0-12.0) Seconds INR 1.3 H (0.9-1.1) POC pH (7.35-7.45) POC pCO2 (35-46) mmHg POC HCO3 (19-24) leah/L POC Base Excess (-9-1.8) leah/L BUN 22 H (7-18) mg/dl BUN/Creatinine Ratio 31.5 H (10-20) Glucose 102 H (70-99) mg/dl POC Glucose 163 H (70-99) mg/dl POC Glucose (other) (70-99) mg/dl AST 43 H (15-37) U/L Alkaline Phosphatase 151 H (45-117) U/L Albumin 1.6 L (3.4-5.0) gm/dl (1) Acute respiratory failure Respiratory failure complication: hypoxia Qualified Code(s): J96.01 - Acute respiratory failure with hypoxia
--- NOTE | 2021-10-01 11:46 | Pharmacy Report ---
Pharmacy Vanc AUC Short Note - Date of Service October 01, 2021 - Assessment & Plan Assessment * 66 year old M receiving VANCOMYCIN IV + ERTAPENEM for treatment of superimposed MRSA pna in patient w/ COVID19 pna, as well as possible UTI in patient w/ h/o ESBL klebsiella UTI. Patient initially presented in septic shock. * Pertinent microbiologic data includes: NEGATIVE MRSA Nasal Swab, but SPUTUM culture growing MRSA, prelim URINE culture growing GNR * Day # 1 VANCOMYCIN, Day # 3 ERTAPENEM * Pressors have been weaned off and patient has been extubated. * Patient's reported allergy hx has greatly limited treatment options. Linezolid was initially going to be used for MRSA pna however provider opted to use vancomycin instead given h/o "rash" and potential for hypertensive emergency if linezolid administered to patient on bupropion. Cephalosporin allergy potentially carries risk for cross reactivity with ceftaroline. Plan Vancomycin * AUC/ANDREW is the preferred PK/PD target for vancomycin * AUC guided dosing is effective and associated with decreased risk of nephrotoxicity compared to traditional trough targets * 2250mg load x 1 given (~20mg/kg) * Maint 1250mg Q 12 hrs is predicted to achieve target AUC/ANDREW of 400-600 mg/L.hr and may be associated with a 9 % risk of nephrotoxicity * Will check level in 2 days to confirm targets are met Ertapenem * eCrCl > 30, continue 1000mg Q 24 hours Pharmacy will continue to follow and will adjust dose/frequency as necessary. Thank you.
--- NOTE | 2021-10-01 12:21 | Pharmacy Report ---
Pharmacy Glycemic Short Note 2 - Date of Service October 01, 2021 - Glycemic Short BSG Results (Last 24 hours): 09/29/21 09/30/21 09/30/21 20:05 08:54 12:20 Glucose POC Glucose POC Glucose (other) 174 H 122 H 122 H 09/30/21 09/30/21 10/01/21 15:31 20:14 00:00 Glucose POC Glucose 101 H 88 74 POC Glucose (other) 10/01/21 10/01/21 10/01/21 04:04 04:33 05:51 Glucose 102 H POC Glucose 65 L* 146 H POC Glucose (other) 10/01/21 08:19 Glucose POC Glucose 90 POC Glucose (other) OUTPATIENT ANTIDIABETIC REGIMEN: * Lantus 22 units BID * Novolog scale * Jardiance 25 mg daily * A1c = 7.5% 09/30/21 ASSESSMENT: 10/01 * Patient extubated yesterday. Pressors weaned off. * 15 units NPH given yesterday. Patient did develop mild hypoglycemia overnight (BSG 65). He has not been tolerating PO. * IV dexamethasone 6mg Q AM continues * Will withhold basal insulin at this time. Will reassess need when PO intake improves * Will continue to utilize "severe" stress dosing of Novolog Q 4 hrs 09/30 * Patient remains intubated, sedated this AM * IV dexamethasone 6mg daily continues. * Norepi weaned off this AM * No tube feeds initiated thus far * BSGs in low 100s prior to receiving IV dexamethasone. Will add low dose NPH to current insulin regimen to combat steroid induced hyperglycemia today and reassess need tomorrow. Anticipate need for NPH if tube feeds initiated, likely in higher dose. 09/29 * Mr Huertas is a 66 y/o M with a PMH of T2DM who presents with complicated UTI + COVID. Patient is currently intubated with pressors active. * Due to the patient's critical illness, will start insulin infusion when BSG greater than 220 mg/dL as this is the standard of care. * Novolog weight-based stress of 3 ordered in interim to track BSGs. PLAN FOR INPATIENT GLYCEMIC CONTROL: * Hold outpatient oral diabetes medications * Basal insulin- dc NPH. no basal insulin at this time * Bolus insulin * NovoLog per scale Q4hrs while NPO * Goal Range: Low 120 mg/dL - High 160 mg/dL * Correction Factor: 15 mg/dL/unit * Nutritional / Prandial insulin per carb ratio of 1 unit per 4 grams CHO consumed PLAN FOR DISCHARGE: * TBD
[2021-10-01] MEDS: ERTAPENEM SODIUM 1,000 MG in SODIUM CHLORIDE 0.9% 50 ML IV SCH (14:32)
[2021-10-01] MEDS ORDERED: FLUCONAZOLE 100 MG TAB PO ONE (15:30)
--- NOTE | 2021-10-01 20:52 | Critical Care Progress Note ---
Date of Service October 01, 2021 Assessment & Plan (1) Pneumonia due to COVID-19 virus: (2) Hx of fracture of rib: (3) Acute respiratory failure: (4) Pyelonephritis due to Escherichia coli: (5) MRSA pneumonia: Plan: Impression: 66-year-old morbidly obese male with multiple medical comorbidities admitted from rehab after extended stay at [facility] for rib fractures, sternal fractures, needing intubation mechanical ventilation as well as acute renal failure with history of ESBL Klebsiellai urinary tract infection now with hypoxemic respiratory failure, Covid positive, and purulent urine. Recommendations: 1. Neurologic: No issues. Restart home psych meds. 2. Pulmonary: Secondary to COVID-19 pneumonia. Extubated and doing well. Continue to wean o2. 3. Cardiovascular: Lactate within normal limits. No evidence of pulmonary bolus him seen on CTA. No issue with hemodynamics. 4. Renal: No current issues. 5. ID: Covid positive. Continue Decadron 6 mg daily for a total of 10 days. MRSA in sputum, ESBL klebsiella in urine. Continue vanc and ertepenem. Fluconazole per hospitalist for thrush. Recommend ID consult. 6. GI: H2 mary. Speech following. 7. Heme-onc: No current issues continue to follow. INR continues to be elevated for unclear reasons. Possibly due to malnutrition. Given vitamin K yesterday. INR down to 1.3. Currently on prophylactic Lovenox 40 twice daily. Will defer further management of anticoagulation in the hospitalist service. 8. Endocrine: Glycemic control per pharmacy. Downgrade to PCU status. Pulmonary and ICU will sign off. Thank you. Please call with questions. Admission and Anticipated Discharge Date Admission Date: September 29, 2021 Subjective Patient seen and examined. Watching TV. Doing well on nasal cannula. No overnight events. Review of Systems Review of Systems: All systems reviewed & are unremarkable except as noted in HPI & below Physical Exam Physical Exam: Constitutional:Obese, pleasant. NAD Eyes: Pupils are equal round and reactive to light. Conjunctivae are normal. Anicteric sclera. Ears nose, mouth and throat: NC in place Neck: Trachea is midline. Visual inspection is normal. Respiratory:Diminished b/l, no increased wob Cardiovascular: Regular rate and rhythm. No murmurs. Trace edema Gastrointestinal: Normal bowel sounds, soft, nontender and nondistended. No hepatosplenomegaly noted. Musculoskeletal: Patient is able to move all extremities. Skin: No rashes, warm dry and intact. Neurologic: No obvious focal neurological deficits seen. Psychiatric: Alert and oriented x3 with a euthymic affect. Results & Data Results & Data ([facility]) Vital Signs (Past 12 Hours) Vital Signs Temp Pulse Pulse Resp BP BP Pulse Ox 10/01/21 19:46 36.3 C L 10/01/21 19:39 83 22 138/78 94 10/01/21 18:00 36.5 C 88 17 137/75 93 10/01/21 17:30 36.5 C 94 H 27 H 93 10/01/21 17:00 36.6 C 85 18 94 10/01/21 16:30 36.7 C 88 17 93 10/01/21 16:00 36.9 C 79 25 H 93 10/01/21 15:30 36.6 C 87 23 94 10/01/21 15:00 37.1 C 85 25 H 139/78 95 10/01/21 14:30 37.2 C 85 27 H 115/74 95 10/01/21 14:00 37.3 C 89 22 94 10/01/21 13:30 37.0 C 83 19 118/68 95 10/01/21 13:00 37.4 C 120 H 28 H 94 10/01/21 12:30 37.5 C 95 H 22 92 10/01/21 12:00 37.6 C H 99 H 26 H 94 10/01/21 11:30 37.6 C H 92 H 27 H 94 10/01/21 11:25 89 19 93 10/01/21 11:00 37.6 C H 88 26 H 153/72 H 92 10/01/21 10:30 37.4 C 88 28 H 90 10/01/21 10:00 37.5 C 102 H 30 H 91 10/01/21 09:30 37.5 C 95 H 28 H 160/81 H 91 10/01/21 09:00 37.4 C 85 23 154/98 H 90 Pulse Ox 10/01/21 19:46 10/01/21 19:39 10/01/21 18:00 10/01/21 17:30 10/01/21 17:00 10/01/21 16:30 10/01/21 16:00 10/01/21 15:30 10/01/21 15:00 10/01/21 14:30 10/01/21 14:00 10/01/21 13:30 10/01/21 13:00 10/01/21 12:30 10/01/21 12:00 92 10/01/21 11:30 10/01/21 11:25 10/01/21 11:00 10/01/21 10:30 10/01/21 10:00 10/01/21 09:30 10/01/21 09:00 Coding Level of Care Code 70779 Subseq Hosp Care Lvl 3 Diagnoses Pneumonia due to COVID-19 virus U07.1; J12.82 Hx of fracture of rib Z87.81 Acute respiratory failure J96.01 Respiratory failure complication: hypoxia Pyelonephritis due to Escherichia coli N12; B96.20 MRSA pneumonia J15.212 (1) Acute respiratory failure Respiratory failure complication: hypoxia Qualified Code(s): J96.01 - Acute respiratory failure with hypoxia
[2021-10-02] MEDS: INSULIN ASPART 100 UNITS/ML 3 ML PEN SC SCH ×7 (02:38→23:50)
[2021-10-02] MEDS: ENOXAPARIN INJ 40 MG/0.4 ML SYR SQ SCH ×2 (02:39→12:03)
[2021-10-02] MEDS: FAMOTIDINE 20 MG in SYRINGE 3 ML IV SCH ×2 (02:39→12:04)
[2021-10-02 06:50] LABS: Basophils # (auto) 0.01 K/uL (0-0.2); Basophils % (auto) 0.1 %; Hematocrit (blood only) 33.2 % (42-52); Hemoglobin 10.7 g/dL (14.0-18.0); Immature Granulocytes # (auto) 0.05 K/uL (0.00-0.02); Immature Granulocytes % (auto) 0.7 %; Lymphocytes # (auto) 1.04 K/uL (1.2-3.4); Lymphocytes % (auto) 14.4 %; Mean Corpuscular Hemoglobin 28.6 pg (25-34); Mean Corpuscular Hgb Conc 32.2 g/dL (32-36); Mean Corpuscular Volume 88.8 fL (80-100); Mean Platelet Volume 9.3 fL (7.4-10.4); Monocytes # (auto) 0.58 K/uL (0.11-0.59); Monocytes % (auto) 8.1 %; Neutrophils # (auto) 5.52 K/uL (1.4-6.5); Neutrophils % (auto) 76.7 %; Platelet Count 262 K/uL (130-400); RDW Coefficient of Variation 17.4 % (11.5-14.5); RDW Standard Deviation 56.6 fL (36.4-46.3); Red Blood Count 3.74 M/uL (4.7-6.1)
[2021-10-02 07:02] LABS: INR 1.1 (0.9-1.1); Prothrombin Time 11.2 Seconds (9.0-12.0)
[2021-10-02] MEDS: DOCUSATE SODIUM SYRUP 100 MG/10 ML UDC PO SCH ×2 (07:11→21:41)
[2021-10-02 07:42] LABS: Albumin Level 1.5 gm/dl (3.4-5.0); BUN Creatinine Ratio 35.5 (10-20); Bilirubin Direct 0.2 mg/dl (0-0.2); Calcium 8.7 mg/dl (8.5-10.1); Creatinine Clr Calc Pharmacy 155.2 ml/min; Est GFR (African American) 121.4 ml/min; Est GFR (Non-African American) 104.8 ml/min; Magnesium 2.1 mg/dl (1.8-2.4); Potassium 3.7 mmol/L (3.5-5.1)
[2021-10-02 07:44] LABS: Bilirubin,Total 0.5 mg/dl (0.2-1); Phosphorus 3.1 mg/dl (2.5-4.9); Total Protein 6.4 gm/dl (6.4-8.2)
[2021-10-02] MEDS: ICU ELECTROLYTE REPLACEMENT PROTOCOL SCH ×2 (08:22→11:05)
[2021-10-02] MEDS ORDERED: POTASSIUM CHLORIDE CRTAB 20 MEQ TABCR PO STA (08:23)
[2021-10-02] MEDS: SILVER SULFADIAZINE 1% CR 50 GM JAR TOP SCH (08:39)
[2021-10-02] MEDS: CHOLECALCIFEROL 1,000 UNITS 25 MCG TAB PO SCH (08:40)
[2021-10-02] MEDS: FLUCONAZOLE 100 MG TAB PO SCH (08:41)
[2021-10-02] MEDS: buPROPion HCl 100 MG TABLET PO SCH ×3 (08:41→21:39)
[2021-10-02] MEDS: dexAMETHasone 6 MG in SYRINGE 0 ML IV SCH (08:41)
[2021-10-02] MEDS: ERTAPENEM SODIUM 1,000 MG in SODIUM CHLORIDE 0.9% 50 ML IV SCH (12:03)
[2021-10-02] MEDS: VANCOMYCIN HCL 1,250 MG in SODIUM CHLORIDE 0.9% 250 ML IV SCH ×3 (12:04→23:48)
[2021-10-02] MEDS ORDERED: INSULIN HUMAN NPH SC STA ×2 (12:21→12:25)
--- NOTE | 2021-10-02 13:44 | Pharmacy Report ---
Pharmacy Glycemic Short Note 2 - Date of Service October 02, 2021 - Glycemic Short BSG Results (Last 24 hours): 10/01/21 10/01/21 10/02/21 16:43 19:38 03:48 Glucose POC Glucose 155 H 154 H 86 10/02/21 10/02/21 10/02/21 05:50 07:19 11:34 Glucose 97 POC Glucose 107 H 248 H OUTPATIENT ANTIDIABETIC REGIMEN: * Lantus 22 units BID * Novolog scale * Jardiance 25 mg daily * A1c = 7.5% 09/30/21 ASSESSMENT: 10/02: * BSGs well controlled yesterday, with only 1 unit of novolog required. * Patient ordered a duet last evening and PO intake has increased through today. As a result, lunchtime BSG was elevated at 248 mg/dL. A one time dose of NPH was ordered at lunch time and will re-evaluate further dosing based on response. * Patient remains on IV dexamethasone. 10/01 * Patient extubated yesterday. Pressors weaned off. * 15 units NPH given yesterday. Patient did develop mild hypoglycemia overnight (BSG 65). He has not been tolerating PO. * IV dexamethasone 6mg Q AM continues * Will withhold basal insulin at this time. Will reassess need when PO intake improves * Will continue to utilize "severe" stress dosing of Novolog Q 4 hrs 09/30 * Patient remains intubated, sedated this AM * IV dexamethasone 6mg daily continues. * Norepi weaned off this AM * No tube feeds initiated thus far * BSGs in low 100s prior to receiving IV dexamethasone. Will add low dose NPH to current insulin regimen to combat steroid induced hyperglycemia today and reassess need tomorrow. Anticipate need for NPH if tube feeds initiated, likely in higher dose. 09/29 * Mr Huertas is a 66 y/o M with a PMH of T2DM who presents with complicated UTI + COVID. Patient is currently intubated with pressors active. * Due to the patient's critical illness, will start insulin infusion when BSG greater than 220 mg/dL as this is the standard of care. * Novolog weight-based stress of 3 ordered in interim to track BSGs. PLAN FOR INPATIENT GLYCEMIC CONTROL: * Hold outpatient oral diabetes medications * Basal insulin- 20 units SC NPH X 1 at lunchtime * Bolus insulin * NovoLog per scale Q4hrs while NPO * Goal Range: Low 120 mg/dL - High 160 mg/dL * Correction Factor: 15 mg/dL/unit * Nutritional / Prandial insulin per carb ratio of 1 unit per 4 grams CHO consumed PLAN FOR DISCHARGE: * TBD
--- NOTE | 2021-10-02 19:58 | Hospitalist Progress Note ---
Date of Service October 02, 2021 Assessment & Plan (1) Acute respiratory failure: (2) STAR (obstructive sleep apnea): (3) COPD (chronic obstructive pulmonary disease): (4) Diabetes mellitus, type II: (5) Urinary tract infection due to ESBL Klebsiella: (6) Pneumonia due to COVID-19 virus: Plan: #. Acute respiratory failure due to COVID-19 pneumonia requiring mechanical ventilation. #. ESBL Klebsiella UTI #. Pharyngeal thrush PT/OT, Extubated 09/30, currently on 6 L nasal cannula oxygen. Continue dexamethasone 09/30 Patient had got 1 dose of remdesivir on admission. declined continuing this. No PE on CT PE. INR is subtherapeutic today. Was on warfarin 5mg daily prior to admission Will resume warfarin 10/02 From EPIC review, UCx from 09/27/21 growing >100,000 LF GNR UCx from 08/31/21, 08/27/21, 08/16/21 grew Klebsiella pneumonia ESBL Admitting Urine culture - ESBL Klebsiella pn. Continue ertapenem for now and await ID recs for recurrent ESBL UTI Sputum culture growing MRSA Started on vancomycin Continue antifungal cream for skin rash. Likely Candidal skin rash had reported patient had Vit D deficiency and had not been on treatment recently. Vit D level 19.2. c/w Vit D. had reported patient had difficulty swallowing. FEES on 10/01 --> patient aspirates small amounts of secretions but not enough to prevent oral intake so long as he has good oral hygiene, aspiration precautions; also thrush noted in lower pharynx/vocal folds/Possibly first tracheal ring. Speech will reassess tomorrow. Pt started on fluconazole 10/01 ---> DC in 10 days. Disposition: PT/OT, await ID recommendation, await patient to improve on oxygenation status. Uncertain at this time. Admission and Anticipated Discharge Date Admission Date: September 29, 2021 Subjective Patient was seen and examined at bedside. NAD, on 6 L nasal cannula, no new acute events overnight. Patient reports eating and moving bowels okay. Patient denies any fever/headache/chills/increased shortness of breath/chest pain/palpitation/other review of symptoms. Physical Exam Physical Exam: GENERAL: Alert and oriented x3. NAD, on 6L HEENT: No pallor, no icterus. Pupils equal, round and reactive to light. Oral mucosa moist. NECK: No JVD, no neck masses. HEART: S1 and S2 heard. Regular rate and rhythm. No murmur, no gallop. RESPIRATORY SYSTEM: Normal AP diameter. No accessory muscle use. No wheezing, no crackles. accentuated b/l breath sounds. ABDOMEN: Soft, bowel sounds present, nontender, no distention. CENTRAL NERVOUS SYSTEM: No facial droop. Speech is clear. Obeys simple commands. Moves extremities. EXTREMITIES: No edema, no erythema seen. Results & Data Results & Data ([facility]) Vital Signs (Past 12 Hours) Vital Signs Temp Pulse Resp BP Pulse Ox Pulse Ox 10/02/21 16:26 36.4 C L 72 20 102/66 94 10/02/21 12:00 95 10/02/21 11:49 68 21 115/76 90 10/02/21 07:58 37.8 C H 59 L 18 126/63 94 (1) Acute respiratory failure Respiratory failure complication: hypoxia Qualified Code(s): J96.01 - Acute respiratory failure with hypoxia
[2021-10-02] MEDS: WARFARIN SOD 7.5 MG TAB PO SCH (21:40)
[2021-10-02] MEDS: SENNOSIDES 8.8 MG/5 ML UDC PO SCH (21:41)
[2021-10-03] MEDS: ICU ELECTROLYTE REPLACEMENT PROTOCOL SCH (03:28)
[2021-10-03 07:31] LABS: INR 1.1 (0.9-1.1); Prothrombin Time 10.8 Seconds (9.0-12.0)
[2021-10-03 07:54] LABS: BUN Creatinine Ratio 38.8 (10-20); Calcium 8.8 mg/dl (8.5-10.1); Creatinine Clr Calc Pharmacy 174.5 ml/min; Est GFR (African American) 127.9 ml/min; Est GFR (Non-African American) 110.3 ml/min; Magnesium 2.1 mg/dl (1.8-2.4)
[2021-10-03 07:55] LABS: Phosphorus 3.2 mg/dl (2.5-4.9)
[2021-10-03] MEDS: INSULIN ASPART 100 UNITS/ML 3 ML PEN SC SCH ×4 (08:21→20:33)
[2021-10-03] MEDS: DOCUSATE SODIUM SYRUP 100 MG/10 ML UDC PO SCH ×2 (08:38→20:31)
[2021-10-03] MEDS ORDERED: INSULIN HUMAN NPH SC SCH ×2 (09:00)
[2021-10-03] MEDS: SILVER SULFADIAZINE 1% CR 50 GM JAR TOP SCH (09:01)
[2021-10-03] MEDS: FLUCONAZOLE 100 MG TAB PO SCH (09:02)
[2021-10-03] MEDS: buPROPion HCl 100 MG TABLET PO SCH ×3 (09:02→20:32)
[2021-10-03] MEDS: dexAMETHasone 6 MG in SYRINGE 0 ML IV SCH (09:02)
[2021-10-03] MEDS: CHOLECALCIFEROL 1,000 UNITS 25 MCG TAB PO SCH (09:02)
[2021-10-03] MEDS ORDERED: VANCOMYCIN TROUGH ONE (11:30)
--- NOTE | 2021-10-03 13:08 | Pharmacy Report ---
Pharmacy Abx Dose Short Note - Date of Service October 03, 2021 - Assessment & Plan Assessment * 66 year old M receiving VANCOMYCIN IV + ERTAPENEM for treatment of superimposed MRSA pna in patient w/ COVID19 pna, as well as possible UTI Patient initially presented in septic shock. * Pertinent microbiologic data includes: NEGATIVE MRSA Nasal Swab, but SPUTUM culture growing MRSA, URINE culture growing ESBL kleb pn * Day # 3 VANCOMYCIN, Day # 5 ERTAPENEM * Patient's reported allergy hx has greatly limited treatment options. Linezolid was initially going to be used for MRSA pna however provider opted to use vancomycin instead given h/o "rash" and potential for hypertensive em ergency if linezolid administered to patient on bupropion. Cephalosporin allergy potentially carries risk for cross reactivity with ceftaroline. Plan Vancomycin * AUC/ANDREW is the preferred PK/PD target for vancomycin * AUC guided dosing is effective and associated with decreased risk of nephrotoxicity compared to traditional trough targets * Currently receiving 1250mg IV Q 12 hrs * Trough level drawn today prior to 4th dose is 16.5mcg/mL. This level was drawn at the appropriate time and prior doses hung according to schedule. This regimen is predicted to achieve target AUC/ANDREW of 400-600 mg/L.hr and may be associated with a 11 % risk of nephrotoxicity. Will continue. * Will check level again in ~2 days if therapy to continue Ertapenem * eCrCl > 30, continue 1000mg Q 24 hours Pharmacy will continue to follow and will adjust dose/frequency as necessary. Thank you.
[2021-10-03] MEDS: ERTAPENEM SODIUM 1,000 MG in SODIUM CHLORIDE 0.9% 50 ML IV SCH (13:24)
[2021-10-03] MEDS: VANCOMYCIN HCL 1,250 MG in SODIUM CHLORIDE 0.9% 250 ML IV SCH ×2 (13:24→23:59)
--- NOTE | 2021-10-03 13:52 | Pharmacy Report ---
Pharmacy Glycemic Short Note 2 - Date of Service October 03, 2021 - Glycemic Short BSG Results (Last 24 hours): 10/02/21 10/02/21 10/03/21 16:05 20:12 06:04 Glucose 87 POC Glucose 127 H 158 H 10/03/21 07:53 Glucose POC Glucose 83 OUTPATIENT ANTIDIABETIC REGIMEN: * Lantus 22 units BID * Novolog scale * Jardiance 25 mg daily * A1c = 7.5% 09/30/21 ASSESSMENT: 10/03: * BSGs well controlled yesterday with the exception of pre-lunch hyperglycemia * Fasting BSG 83 this AM, pt had received 20 units NPH yesterday. Will reduce dose of NPH given today * Post-prandial BSGs controlled utilizing current Novolog doses, however BSGs trending lower overall. Will reduce both prandial and correctional insulin doses today 10/02: * BSGs well controlled yesterday, with only 1 unit of novolog required. * Patient ordered a duet last evening and PO intake has increased through today. As a result, lunchtime BSG was elevated at 248 mg/dL. A one time dose of NPH was ordered at lunch time and will re-evaluate further dosing based on response. * Patient remains on IV dexamethasone. 10/01 * Patient extubated yesterday. Pressors weaned off. * 15 units NPH given yesterday. Patient did develop mild hypoglycemia overnight (BSG 65). He has not been tolerating PO. * IV dexamethasone 6mg Q AM continues * Will withhold basal insulin at this time. Will reassess need when PO intake improves * Will continue to utilize "severe" stress dosing of Novolog Q 4 hrs 09/30 * Patient remains intubated, sedated this AM * IV dexamethasone 6mg daily continues. * Norepi weaned off this AM * No tube feeds initiated thus far * BSGs in low 100s prior to receiving IV dexamethasone. Will add low dose NPH to current insulin regimen to combat steroid induced hyperglycemia today and reassess need tomorrow. Anticipate need for NPH if tube feeds initiated, likely in higher dose. 09/29 * Mr Huertas is a 66 y/o M with a PMH of T2DM who presents with complicated UTI + COVID. Patient is currently intubated with pressors active. * Due to the patient's critical illness, will start insulin infusion when BSG greater than 220 mg/dL as this is the standard of care. * Novolog weight-based stress of 3 ordered in interim to track BSGs. PLAN FOR INPATIENT GLYCEMIC CONTROL: * Hold outpatient oral diabetes medications * Basal insulin- NPH 15 units SQ Q AM with dexamethasone IV * Bolus insulin * NovoLog per scale Q4hrs while NPO * Goal Range: Low 120 mg/dL - High 160 mg/dL * Correction Factor: 18 mg/dL/unit * Nutritional / Prandial insulin per carb ratio of 1 unit per 5 grams CHO consumed PLAN FOR DISCHARGE: * TBD
[2021-10-03] MEDS: WARFARIN SOD 7.5 MG TAB PO SCH (17:23)
--- NOTE | 2021-10-03 17:44 | Hospitalist Progress Note ---
Date of Service October 03, 2021 Assessment & Plan (1) Acute respiratory failure: (2) STAR (obstructive sleep apnea): (3) COPD (chronic obstructive pulmonary disease): (4) Diabetes mellitus, type II: (5) Urinary tract infection due to ESBL Klebsiella: (6) Pneumonia due to COVID-19 virus: Plan: #. Acute respiratory failure due to COVID-19 pneumonia requiring mechanical ventilation. #. ESBL Klebsiella UTI #. Pharyngeal thrush PT/OT, Extubated 09/30, currently on 6 L nasal cannula oxygen. Continue dexamethasone 09/30 Patient had got 1 dose of remdesivir on admission. declined continuing this. No PE on CT PE. Initially on lovenox 40 BD sq --->resumed home warfarin 10/02 Home dose: Per pharmacy, his dose was increased to 7.5 mg daily on 09/27; scale back to 5 mg daily in 2 days due to fluconazole treatment is undergoing. Patient will need to follow-up with Coumadin clinic as an outpatient for close monitoring. Daily PT/INR, heparin SQ until PT/INR therapeutic From EPIC review, UCx from 09/27/21 growing >100,000 LF GNR UCx from 08/31/21, 08/27/21, 08/16/21 grew Klebsiella pneumonia ESBL Admitting Urine culture - ESBL Klebsiella pn. Continue ertapenem for now and await ID recs for recurrent ESBL UTI Sputum culture growing MRSA Started on vancomycin Continue antifungal cream for skin rash. Likely Candidal skin rash had reported patient had Vit D deficiency and had not been on treatment recently. Vit D level 19.2. c/w Vit D. had reported patient had difficulty swallowing. FEES on 10/01 --> patient aspirates small amounts of secretions but not enough to prevent oral intake so long as he has good oral hygiene, aspiration precautions; also thrush noted in lower pharynx/vocal folds/Possibly first tracheal ring. Pt started on fluconazole 10/01 ---> DC in 10 days. Speech reassessed pt 10/03 --> erythema in his pharynx has improved somewhat and will again need rechecking next week. 10/03 ID evaluated the patient: IV vancomycin for 14 days for MRSA pneumonia. Transition to oral linezolid on discharge. For pyelonephritis, obtain abdominopelvic imaging to rule out complications such as renal abscess/uro lithiasis. If on complicated pyelonephritis secondary to ESBL Klebsiella---> continue gabapentin for 7 to 10 days total therapy. c/w Ertapenem 09/29 c/w Vanc 10/01 c/w warfarin 7.5 mg daily-->to 5 mg daily in 2 days, closely monitor PT/INR Will get CTAP wo con to r/o Cx of pyelo Disposition: PT/OT, await patient to improve on oxygenation status. Encourage incentive spirometer/flutter valve. Uncertain at this time. Depends on improvement in his O2 requirement. Admission and Anticipated Discharge Date Admission Date: September 29, 2021 Subjective Patient was seen and examined at bedside. NAD, on 6 L nasal cannula, no new acute events overnight per RN. Patient reports eating and moving bowels okay. Patient denies any fever/headache/chills/increased shortness of breath/chest pain/palpitation/other review of symptoms. Physical Exam Physical Exam: GENERAL: Alert and oriented x3. NAD, on 6L HEENT: No pallor, no icterus. Pupils equal, round and reactive to light. Oral mucosa moist. NECK: No JVD, no neck masses. HEART: S1 and S2 heard. Regular rate and rhythm. No murmur, no gallop. RESPIRATORY SYSTEM: Normal AP diameter. No accessory muscle use. No wheezing, no crackles. accentuated b/l breath sounds same as yesterday. ABDOMEN: Soft, bowel sounds present, nontender, no distention. CENTRAL NERVOUS SYSTEM: No facial droop. Speech is clear. Obeys simple commands. Moves extremities. EXTREMITIES: No edema, no erythema seen. Results & Data Results & Data ([facility]) Vital Signs (Past 12 Hours) Vital Signs Temp Pulse Resp BP Pulse Ox Pulse Ox Pulse Ox 10/03/21 17:04 36.9 C 67 18 132/77 95 10/03/21 13:09 93 10/03/21 12:00 95 10/03/21 11:00 36.8 C 72 20 114/65 93 10/03/21 10:51 90 (1) Acute respiratory failure Respiratory failure complication: hypoxia Qualified Code(s): J96.01 - Acute respiratory failure with hypoxia
--- NOTE | 2021-10-03 20:25 | CT Scan Report ---
CT OF THE ABDOMEN AND PELVIS WITHOUT CONTRAST CLINICAL HISTORY: r/o any complication of pyelonephritis COMPARISON STUDY: CT of the abdomen and pelvis August 30, 2021. TECHNIQUE: Axial images of the abdomen and pelvis were obtained without IV contrast. Images were revi ewed in the axial, sagittal, and coronal planes. Automated exposure control was utilized for the jones dy. A dose lowering technique was utilized adhering to the principles of ALARA. FINDINGS: Visualized portions of the lower chest demonstrate small bilateral pleural effusions, right larger left. There are associated bilateral lower lobe airspace opacities. In addition, there are mu ltifocal airspace opacities within the lower lungs consistent with an infectious process. Mild cardio megaly is noted. Healing right-sided rib fractures are noted. No pneumatosis, free air or portal venous gas is present. No renal, ureteral or bladder calculi are p resent. There is no hydronephrosis or hydroureter. A Kendall balloon within the latter is noted. There has been interval development of multifocal hyperdense foci within the kidneys since CT of August. These are nonspecific. There is a 1.8 cm hypodense focus within the midpole of the right kidn ey shown on axial image 39 of 96. Evaluation of the kidneys is suboptimal on this unenhanced exam. La yering hyperdense material within the gallbladder is noted. There is no acute cholecystitis. Unenhanc ed images of the liver, adrenal glands and pancreas are unremarkable. Is no biliary or pancreatic brain brando dilatation. There are granulomas within the spleen. There is no evidence for a bowel obstruction. The appendix is normal. No acute fracture or suspicious lesion is identified within the visualized s keletal structures. Mildly enlarged retroperitoneal lymph nodes are again noted. These remain nonspec ific. These are either unchanged or slightly decreased in size since prior CT. IMPRESSION: 1. No urinary calculi or hydronephrosis. Interval development of multifocal hyperdense foci within th e kidneys since CT of August 30, 2021. These foci are nonspecific and could represent delayed nephro grams related to previous IV contrast administration. Small foci of hemorrhage within the kidneys cou ld appear similar. Short-term imaging follow-up is recommended. 2. 1.8 cm hypodense focus within the midpole of the right kidney. This is suboptimally assessed on th is unenhanced exam. This was not confidently identified on prior exam although could reflect a cyst. Although not highly suggestive, a small renal abscess cannot be excluded. 3. Multifocal airspace opacities within the lower lungs consistent with an infectious process. 4. Small bilateral pleural effusions with associated bilateral lower lobe opacities. 5. Multiple mildly enlarged retroperitoneal lymph nodes which are either unchanged or slightly decrea sed in size since prior CT. These remain indeterminate. ACT 112: Negative or not required by law. Electronically signed by: Jaime Childs M.D. 10/03/2021 8:23 PM
[2021-10-03] MEDS: SENNOSIDES 8.8 MG/5 ML UDC PO SCH (20:30)
[2021-10-03] MEDS: HEPARIN SOD 5,000 UNIT/0.5 ML VIAL SQ SCH (21:55)
[2021-10-04] MEDS: INSULIN ASPART 100 UNITS/ML 3 ML PEN SC SCH ×6 (00:13→20:33)
[2021-10-04 06:22] LABS: INR 1.2 (0.9-1.1); Prothrombin Time 11.8 Seconds (9.0-12.0)
[2021-10-04 06:52] LABS: BUN Creatinine Ratio 39.4 (10-20); Calcium 8.6 mg/dl (8.5-10.1); Creatinine Clr Calc Pharmacy 165.1 ml/min; Est GFR (African American) 125.9 ml/min; Est GFR (Non-African American) 108.6 ml/min; Potassium 3.6 mmol/L (3.5-5.1)
[2021-10-04 06:53] LABS: Phosphorus 3.2 mg/dl (2.5-4.9)
--- NOTE | 2021-10-04 06:59 | Pharmacy Report ---
Pharmacy Glycemic Short Note 2 - Date of Service October 04, 2021 - Glycemic Short BSG Results (Last 24 hours): 10/03/21 10/03/21 10/03/21 06:04 07:53 16:53 Glucose 87 POC Glucose 83 151 H 10/03/21 10/03/21 10/04/21 20:28 23:48 02:28 Glucose POC Glucose 267 H 106 H 90 10/04/21 10/04/21 03:52 05:42 Glucose 86 POC Glucose 89 OUTPATIENT ANTIDIABETIC REGIMEN: * Lantus 22 units BID * Novolog scale * Jardiance 25 mg daily * A1c = 7.5% 09/30/21 ASSESSMENT: 10/04: * BSGs well controlled with the exception of HS hyperglycemia * Post-prandial BSGs not elevated until HS, in fact many running lower than desired. Will continue relatively low dose of NPH given this pattern. Will increase prandial insulin dose with meals however. Will lessen Novolog doses administered HS and on overnight checks due to rather quick drop in BSG following evening insulin dose. 10/03: * BSGs well controlled yesterday with the exception of pre-lunch hyperglycemia * Fasting BSG 83 this AM, pt had received 20 units NPH yesterday. Will reduce dose of NPH given today * Post-prandial BSGs controlled utilizing current Novolog doses, however BSGs trending lower overall. Will reduce both prandial and correctional insulin doses today 10/02: * BSGs well controlled yesterday, with only 1 unit of novolog required. * Patient ordered a duet last evening and PO intake has increased through today. As a result, lunchtime BSG was elevated at 248 mg/dL. A one time dose of NPH was ordered at lunch time and will re-evaluate further dosing based on response. * Patient remains on IV dexamethasone. 10/01 * Patient extubated yesterday. Pressors weaned off. * 15 units NPH given yesterday. Patient did develop mild hypoglycemia overnight (BSG 65). He has not been tolerating PO. * IV dexamethasone 6mg Q AM continues * Will withhold basal insulin at this time. Will reassess need when PO intake improves * Will continue to utilize "severe" stress dosing of Novolog Q 4 hrs PLAN FOR INPATIENT GLYCEMIC CONTROL: * Hold outpatient oral diabetes medications * Basal insulin- NPH 15 units SQ Q AM with dexamethasone IV * Bolus insulin * NovoLog per scale ACHS and at 0200 * Goal Range: Low 100 mg/dL - High 150 mg/dL * Correction Factor: 15 mg/dL/unit AC, (20mg/dL/unit HS and 0200 and only correct if BSG > 180) * Nutritional / Prandial insulin per carb ratio of 1 unit per 4 grams CHO consumed PLAN FOR DISCHARGE: * TBD
[2021-10-04] MEDS: CHOLECALCIFEROL 1,000 UNITS 25 MCG TAB PO SCH (08:07)
[2021-10-04] MEDS: buPROPion HCl 100 MG TABLET PO SCH ×3 (08:07→20:35)
[2021-10-04] MEDS: FLUCONAZOLE 100 MG TAB PO SCH (08:08)
[2021-10-04] MEDS: HEPARIN SOD 5,000 UNIT/0.5 ML VIAL SQ SCH ×2 (08:08→20:36)
[2021-10-04] MEDS: DOCUSATE SODIUM SYRUP 100 MG/10 ML UDC PO SCH ×2 (08:09→20:32)
[2021-10-04] MEDS: SILVER SULFADIAZINE 1% CR 50 GM JAR TOP SCH (08:10)
[2021-10-04] MEDS ORDERED: INSULIN HUMAN NPH SC SCH (09:00)
[2021-10-04] MEDS: dexAMETHasone 6 MG in SYRINGE 0 ML IV SCH (09:07)
[2021-10-04] MEDS: INSULIN HUMAN NPH SC SCH (09:55)
[2021-10-04] MEDS: VANCOMYCIN HCL 1,250 MG in SODIUM CHLORIDE 0.9% 250 ML IV SCH (11:16)
[2021-10-04] MEDS: ERTAPENEM SODIUM 1,000 MG in SODIUM CHLORIDE 0.9% 50 ML IV SCH (12:59)
--- NOTE | 2021-10-04 15:51 | Hospitalist Progress Note ---
Date of Service October 04, 2021 Assessment & Plan (1) Acute respiratory failure: (2) STAR (obstructive sleep apnea): (3) COPD (chronic obstructive pulmonary disease): (4) Diabetes mellitus, type II: (5) Urinary tract infection due to ESBL Klebsiella: (6) Pneumonia due to COVID-19 virus: Plan: #. Acute respiratory failure due to COVID-19 pneumonia requiring mechanical ventilation. #. ESBL Klebsiella UTI #. Pharyngeal thrush PT/OT, Extubated 09/30, currently on 6 L nasal cannula oxygen. Continue dexamethasone 09/30 Patient had got 1 dose of remdesivir on admission. declined continuing this. No PE on CT PE. Initially on lovenox 40 BD sq --->resumed home warfarin 10/02 Home dose: Per pharmacy, his dose was increased to 7.5 mg daily on 09/27; scale back to 5 mg daily in 1 day due to fluconazole treatment is undergoing. Patient will need to follow-up with Coumadin clinic as an outpatient for close monitoring. Daily PT/INR, heparin SQ until PT/INR therapeutic From EPIC review, UCx from 09/27/21 growing >100,000 LF GNR UCx from 08/31/21, 08/27/21, 08/16/21 grew Klebsiella pneumonia ESBL Admitting Urine culture - ESBL Klebsiella pn. Continue ertapenem for now and await ID recs for recurrent ESBL UTI Sputum culture growing MRSA Started on vancomycin Continue antifungal cream for skin rash. Likely Candidal skin rash had reported patient had Vit D deficiency and had not been on treatment recently. Vit D level 19.2. c/w Vit D. had reported patient had difficulty swallowing. FEES on 10/01 --> patient aspirates small amounts of secretions but not enough to prevent oral intake so long as he has good oral hygiene, aspiration precautions; also thrush noted in lower pharynx/vocal folds/Possibly first tracheal ring. Pt started on fluconazole 10/01 ---> DC in 10 days. Speech reassessed pt 10/03 --> edema in his pharynx has improved somewhat and will again need rechecking next week. 10/03 ID evaluated the patient: IV vancomycin for 14 days for MRSA pneumonia. Transition to oral linezolid on discharge. For pyelonephritis, obtain abdominopelvic imaging to rule out complications such as renal abscess/urolithiasis. If uncomplicated pyelonephritis secondary to ESBL Klebsiella---> continue gabapentin for 7 to 10 days total therapy. c/w Ertapenem 09/29 c/w Vanc 10/01 c/w warfarin 7.5 mg daily-->to 5 mg daily in 1 days, closely monitor PT/INR 10/03 CTAP: No urinary calculi or hydronephrosis. Interval development of multifocal hyperdense foci within the kidneys since August 2021 suggestive of delayed nephrograms versus small foci of hemorrhages. 1.8 cm hypodense focus within the mid pole of right kidney suggestive of a cyst versus small renal abscess. Multifocal airspace opacities within the lower lungs consistent with an infectious process. 10/04 reached out to urology Gayle Dawn who reviewed the case with Dr. Walters [on-call urologist]. Per urology, the abscess could be from pyelonephritis versus other infection, since the area possibly concerning for abscess is less than 2 cm---> it does not meet criteria for IR drainage. Recommends continuing antibiotics and time, recommends reaching out to ID for ongoing recommendation, patient will need to follow-up with urology as an outpatient and need repeat imaging to document resolution. No acute intervention needed at this time. If the area grows or he develops fever while on antibiotic, he may need IR drainage/obtain a culture. 10/04 reached out to ID [Dr. Duffy] via [place] text, updated him with the CTAP findings, awaiting further recommendations on duration of antibiotics. Disposition: PT/OT, await patient to improve on oxygenation status. Encourage incentive spirometer/flutter valve. Likely can go to placement with ID recommendation. Will get in touch with the speech prior to discharge if placement found. Admission and Anticipated Discharge Date Admission Date: September 29, 2021 Subjective Patient was seen and examined at bedside. Patient sitting up in chair, on 4 L, NAD, no new acute events overnight per RN. Patient reports eating okay. Patient denies any fever/headache/chills/increased shortness of breath/chest pain/palpitation/other review of symptoms. Per RN, patient had diarrheal event overnight but no any bowel movements today. Physical Exam Physical Exam: GENERAL: Alert and oriented x3. NAD, on 4L HEENT: No pallor, no icterus. Pupils equal, round and reactive to light. Oral mucosa moist. NECK: No JVD, no neck masses. HEART: S1 and S2 heard. Regular rate and rhythm. No murmur, no gallop. RESPIRATORY SYSTEM: Normal AP diameter. No accessory muscle use. No wheezing, no crackles. accentuated b/l breath sounds - clearing up little ABDOMEN: Soft, bowel sounds present, nontender, no distention. CENTRAL NERVOUS SYSTEM: No facial droop. Speech is clear. Obeys simple commands. Moves extremities. EXTREMITIES: No edema, no erythema seen. Results & Data Results & Data ([facility]) Vital Signs (Past 12 Hours) Vital Signs Temp Pulse Pulse Resp BP Pulse Ox Pulse Ox 10/04/21 15:15 36.5 C 69 22 129/71 100 10/04/21 15:00 85 10/04/21 12:30 65 10/04/21 11:33 98 10/04/21 11:12 36.3 C L 70 25 H 122/66 94 10/04/21 11:00 98 10/04/21 10:00 76 17 95 10/04/21 07:32 58 L 16 146/73 H 97 (1) Acute respiratory failure Respiratory failure complication: hypoxia Qualified Code(s): J96.01 - Acute respiratory failure with hypoxia
[2021-10-04] MEDS: WARFARIN SOD 7.5 MG TAB PO SCH (16:53)
[2021-10-04] MEDS: ADVANCED PROBIOTIC 1250 MG CAPSULE PO SCH (16:54)
[2021-10-04] MEDS: SENNOSIDES 8.8 MG/5 ML UDC PO SCH (20:33)
[2021-10-05] MEDS: VANCOMYCIN HCL 1,250 MG in SODIUM CHLORIDE 0.9% 250 ML IV SCH ×2 (00:15→13:11)
[2021-10-05] MEDS: INSULIN ASPART 100 UNITS/ML 3 ML PEN SC SCH ×5 (01:53→20:02)
[2021-10-05] MEDS: ADVANCED PROBIOTIC 1250 MG CAPSULE PO SCH (08:00)
[2021-10-05] MEDS: HEPARIN SOD 5,000 UNIT/0.5 ML VIAL SQ SCH ×2 (08:45→20:11)
[2021-10-05] MEDS: buPROPion HCl 100 MG TABLET PO SCH ×3 (08:45→20:10)
[2021-10-05] MEDS: dexAMETHasone 6 MG in SYRINGE 0 ML IV SCH (08:46)
[2021-10-05] MEDS: DOCUSATE SODIUM SYRUP 100 MG/10 ML UDC PO SCH ×2 (08:50→20:03)
[2021-10-05] MEDS: FLUCONAZOLE 100 MG TAB PO SCH (08:50)
[2021-10-05] MEDS: CHOLECALCIFEROL 1,000 UNITS 25 MCG TAB PO SCH (08:50)
[2021-10-05] MEDS: SILVER SULFADIAZINE 1% CR 50 GM JAR TOP SCH (08:50)
[2021-10-05] MEDS: INSULIN HUMAN NPH SC SCH (08:52)
[2021-10-05 09:22] LABS: BUN Creatinine Ratio 36.6 (10-20); Calcium 8.4 mg/dl (8.5-10.1); Creatinine Clr Calc Pharmacy 151.1 ml/min; Est GFR (African American) 121.4 ml/min; Est GFR (Non-African American) 104.8 ml/min; Magnesium 1.9 mg/dl (1.8-2.4); Phosphorus 3.1 mg/dl (2.5-4.9); Potassium 3.7 mmol/L (3.5-5.1)
--- NOTE | 2021-10-05 10:46 | Pharmacy Report ---
Pharmacy Glycemic Short Note 2 - Date of Service October 05, 2021 - Glycemic Short BSG Results (Last 24 hours): 10/04/21 10/04/21 10/04/21 11:09 16:30 20:12 Glucose POC Glucose 144 H 157 H 153 H 10/05/21 10/05/21 10/05/21 01:52 07:24 07:28 Glucose 82 POC Glucose 111 H 85 OUTPATIENT ANTIDIABETIC REGIMEN: * Lantus 22 units BID * Novolog scale * Jardiance 25 mg daily * A1c = 7.5% 09/30/21 ASSESSMENT: 10/05: * BSGs again well controlled * Fasting BSG in 80s this AM w/ 15 units NPH on board - same as yesterday. No correctional insulin administered last evening or overnight. Will continue the same for now as dexamethasone 6mg IV Q AM continues. * Post-prandial BSGs well controlled w/ current NPH and prandial Novolog doses - continue the same for now * Continue to utilize lesser doses of Novolog HS and overnight due to drop in BSGs overnight 10/04: * BSGs well controlled with the exception of HS hyperglycemia * Post-prandial BSGs not elevated until HS, in fact many running lower than desired. Will continue relatively low dose of NPH given this pattern. Will increase prandial insulin dose with meals however. Will lessen Novolog doses administered HS and on overnight checks due to rather quick drop in BSG following evening insulin dose. 10/03: * BSGs well controlled yesterday with the exception of pre-lunch hyperglycemia * Fasting BSG 83 this AM, pt had received 20 units NPH yesterday. Will reduce dose of NPH given today * Post-prandial BSGs controlled utilizing current Novolog doses, however BSGs trending lower overall. Will reduce both prandial and correctional insulin doses today 10/02: * BSGs well controlled yesterday, with only 1 unit of novolog required. * Patient ordered a duet last evening and PO intake has increased through today. As a result, lunchtime BSG was elevated at 248 mg/dL. A one time dose of NPH was ordered at lunch time and will re-evaluate further dosing based on response. * Patient remains on IV dexamethasone. PLAN FOR INPATIENT GLYCEMIC CONTROL: * Hold outpatient oral diabetes medications * Basal insulin- NPH 15 units SQ Q AM with dexamethasone IV * Bolus insulin * NovoLog per scale ACHS and at 0200 * Goal Range: Low 100 mg/dL - High 150 mg/dL * Correction Factor: 15 mg/dL/unit AC, (20mg/dL/unit HS and 0200 and only correct if BSG > 180) * Nutritional / Prandial insulin per carb ratio of 1 unit per 4 grams CHO consumed PLAN FOR DISCHARGE: * TBD
[2021-10-05] MEDS: MAGNESIUM OXIDE 400 MG TAB PO SCH ×2 (11:28→20:11)
[2021-10-05] MEDS: ERTAPENEM SODIUM 1,000 MG in SODIUM CHLORIDE 0.9% 50 ML IV SCH (11:29)
[2021-10-05] MEDS ORDERED: VANCOMYCIN TROUGH ONE (11:30)
--- NOTE | 2021-10-05 12:50 | Pharmacy Report ---
Pharmacy Vanc AUC Short Note - Date of Service October 05, 2021 - Assessment & Plan Assessment 66 year old M receiving ertapenem/vancomycin for MRSA pneumonia and ESBL UTI Day # 5 of vancomycin Plan Vancomycin * AUC/ANDREW is the preferred PK/PD target for vancomycin * AUC guided dosing is effective and associated with decreased risk of nephrotoxicity compared to traditional trough targets * Trough level came back at ~20 mcg/ml. Plan to continue same vancomycin dosing for now. Goal trough is ~20 mcg/ml for MRSA pneumonia. Dosing predicated to achieve target AUC/ANDREW of 400-600 mg/L.hr * Continue vancomycin 1250 mg iv q 12 hrs. Plan to recheck trough again in 2-3 days or sooner if renal function changes Pharmacy will continue to follow and will adjust dose/frequency as necessary. Thank you.
[2021-10-05] MEDS: WARFARIN SOD 7.5 MG TAB PO SCH (17:52)
[2021-10-05] MEDS ORDERED: POTASSIUM CHLORIDE CRTAB 20 MEQ TABCR PO STA (19:45)
--- NOTE | 2021-10-05 19:51 | Hospitalist Progress Note ---
Date of Service October 05, 2021 Assessment & Plan (1) Acute respiratory failure: (2) STAR (obstructive sleep apnea): (3) COPD (chronic obstructive pulmonary disease): (4) Diabetes mellitus, type II: (5) Urinary tract infection due to ESBL Klebsiella: (6) Pneumonia due to COVID-19 virus: Plan: #. Acute respiratory failure due to COVID-19 pneumonia requiring mechanical ventilation. #. ESBL Klebsiella UTI #. Pharyngeal thrush PT/OT, Extubated 09/30, currently on 6 L nasal cannula oxygen. Continue dexamethasone 09/30 Patient had got 1 dose of remdesivir on admission. declined continuing this. No PE on CT PE. Initially on lovenox 40 BD sq --->resumed home warfarin 10/02 Home dose: Per pharmacy, his dose was increased to 7.5 mg daily on 09/27; scale back to 5 mg daily in 1 day due to fluconazole treatment is undergoing. Patient will need to follow-up with Coumadin clinic as an outpatient for close monitoring. Daily PT/INR, heparin SQ until PT/INR therapeutic From EPIC review, UCx from 09/27/21 growing >100,000 LF GNR UCx from 08/31/21, 08/27/21, 08/16/21 grew Klebsiella pneumonia ESBL Admitting Urine culture - ESBL Klebsiella pn. Continue ertapenem for now and await ID recs for recurrent ESBL UTI Sputum culture growing MRSA Started on vancomycin Continue antifungal cream for skin rash. Likely Candidal skin rash had reported patient had Vit D deficiency and had not been on treatment recently. Vit D level 19.2. c/w Vit D. had reported patient had difficulty swallowing. FEES on 10/01 --> patient aspirates small amounts of secretions but not enough to prevent oral intake so long as he has good oral hygiene, aspiration precautions; also thrush noted in lower pharynx/vocal folds/Possibly first tracheal ring. Pt started on fluconazole 10/01 ---> DC in 10 days. Speech reassessed pt 10/03 --> edema in his pharynx has improved somewhat and will again need rechecking next week. 10/03 ID evaluated the patient: IV vancomycin for 14 days for MRSA pneumonia. Transition to oral linezolid on discharge. For pyelonephritis, obtain abdominopelvic imaging to rule out complications such as renal abscess/urolithiasis. If uncomplicated pyelonephritis secondary to ESBL Klebsiella---> continue gabapentin for 7 to 10 days total therapy. c/w Ertapenem 09/29 c/w Vanc 10/01 c/w warfarin 7.5 mg daily-->to 5 mg daily from 10/06, closely monitor PT/INR 10/03 CTAP: No urinary calculi or hydronephrosis. Interval development of multifocal hyperdense foci within the kidneys since August 2021 suggestive of delayed nephrograms versus small foci of hemorrhages. 1.8 cm hypodense focus within the mid pole of right kidney suggestive of a cyst versus small renal abscess. Multifocal airspace opacities within the lower lungs consistent with an infectious process. 10/04 reached out to urology Gayle Dawn who reviewed the case with Dr. Walters [on-call urologist]. Per urology, the abscess could be from pyelonephritis versus other infection, since the area possibly concerning for abscess is less than 2 cm---> it does not meet criteria for IR drainage. Recommends continuing antibiotics and time, recommends reaching out to ID for ongoing recommendation, patient will need to follow-up with urology as an outpatient and need repeat imaging to document resolution. No acute intervention needed at this time. If the area grows or he develops fever while on antibiotic, he may need IR drainage/obtain a culture. 10/04 reached out to ID [Dr. Duffy] via [place] text, updated him with the CTAP findings, awaiting further recommendations on duration of antibiotics. We will try to reach out to him again tomorrow. Disposition: PT/OT. Encourage incentive spirometer/flutter valve. Can go to placement with ID recommendation. Will get in touch with the speech prior to discharge if placement found. Awaiting placement. Admission and Anticipated Discharge Date Admission Date: September 29, 2021 Subjective Patient was seen and examined at bedside. Patient sitting up in chair, on RA, NAD, no new acute events overnight per RN. Patient reports eating okay. Patient denies any fever/headache/chills/increased shortness of breath/chest pain/palpitation/other review of symptoms. Per RN, he is doing better. Physical Exam Physical Exam: GENERAL: Alert and oriented x3. NAD, on room air HEENT: No pallor, no icterus. Pupils equal, round and reactive to light. Oral mucosa moist. NECK: No JVD, no neck masses. HEART: S1 and S2 heard. Regular rate and rhythm. No murmur, no gallop. RESPIRATORY SYSTEM: Normal AP diameter. No accessory muscle use. No wheezing, no crackles. accentuated b/l breath sounds - clearing up ABDOMEN: Soft, bowel sounds present, nontender, no distention. CENTRAL NERVOUS SYSTEM: No facial droop. Speech is clear. Obeys simple commands. Moves extremities. EXTREMITIES: No edema, no erythema seen. Results & Data Results & Data ([facility]) Vital Signs (Past 12 Hours) Vital Signs Temp Pulse Pulse Resp BP BP Pulse Ox 10/05/21 15:47 66 10/05/21 14:58 36.4 C L 75 18 138/70 95 10/05/21 11:03 36.5 C 70 17 127/71 95 10/05/21 10:30 66 10/05/21 08:00 86 Pulse Ox 10/05/21 15:47 95 10/05/21 14:58 10/05/21 11:03 10/05/21 10:30 10/05/21 08:00 (1) Acute respiratory failure Respiratory failure complication: hypoxia Qualified Code(s): J96.01 - Acute respiratory failure with hypoxia
[2021-10-05] MEDS: SENNOSIDES 8.8 MG/5 ML UDC PO SCH (20:03)
[2021-10-06] MEDS: VANCOMYCIN HCL 1,250 MG in SODIUM CHLORIDE 0.9% 250 ML IV SCH ×3 (00:51→23:13)
[2021-10-06] MEDS: INSULIN ASPART 100 UNITS/ML 3 ML PEN SC SCH ×6 (02:19→23:10)
[2021-10-06 07:53] LABS: INR 1.8 (0.9-1.1); Prothrombin Time 17.3 Seconds (9.0-12.0)
[2021-10-06 08:17] LABS: Creatinine Clr Calc Pharmacy 178.1 ml/min; Est GFR (Non-African American) 112.1 ml/min
[2021-10-06] MEDS: dexAMETHasone 6 MG in SYRINGE 0 ML IV SCH (08:40)
[2021-10-06] MEDS: ADVANCED PROBIOTIC 1250 MG CAPSULE PO SCH (08:40)
[2021-10-06] MEDS: FLUCONAZOLE 100 MG TAB PO SCH (08:41)
[2021-10-06] MEDS: CHOLECALCIFEROL 1,000 UNITS 25 MCG TAB PO SCH (08:41)
[2021-10-06] MEDS: HEPARIN SOD 5,000 UNIT/0.5 ML VIAL SQ SCH (08:41)
[2021-10-06] MEDS: buPROPion HCl 100 MG TABLET PO SCH ×3 (08:41→21:29)
[2021-10-06] MEDS: DOCUSATE SODIUM SYRUP 100 MG/10 ML UDC PO SCH ×2 (08:42→21:29)
[2021-10-06] MEDS: SILVER SULFADIAZINE 1% CR 50 GM JAR TOP SCH (08:42)
[2021-10-06] MEDS: MAGNESIUM OXIDE 400 MG TAB PO SCH ×2 (11:14→21:35)
[2021-10-06] MEDS: INSULIN HUMAN NPH SC SCH (11:18)
[2021-10-06] MEDS: ERTAPENEM SODIUM 1,000 MG in SODIUM CHLORIDE 0.9% 50 ML IV SCH (13:58)
[2021-10-06] MEDS: WARFARIN SOD 5 MG TAB PO SCH (17:44)
--- NOTE | 2021-10-06 18:18 | Hospitalist Progress Note ---
Date of Service October 06, 2021 Assessment & Plan (1) Acute respiratory failure: (2) STAR (obstructive sleep apnea): (3) COPD (chronic obstructive pulmonary disease): (4) Diabetes mellitus, type II: (5) Urinary tract infection due to ESBL Klebsiella: (6) Pneumonia due to COVID-19 virus: Plan: #. Acute respiratory failure due to COVID-19 pneumonia requiring mechanical ventilation. #. ESBL Klebsiella UTI #. Pharyngeal thrush PT/OT, Extubated 09/30, currently on 6 L nasal cannula oxygen. Continue dexamethasone 09/30 Patient had got 1 dose of remdesivir on admission. declined continuing this. No PE on CT PE. Initially on lovenox 40 BD sq --->resumed home warfarin 10/02 Home dose: Per pharmacy, his dose was increased to 7.5 mg daily on 09/27 Patient will need to follow-up with Coumadin clinic as an outpatient for close monitoring. Daily PT/INR - INR today 1.8 From EPIC review, UCx from 09/27/21 growing >100,000 LF GNR UCx from 08/31/21, 08/27/21, 08/16/21 grew Klebsiella pneumonia ESBL Admitting Urine culture - ESBL Klebsiella pn. Continue ertapenem for now and await ID recs for recurrent ESBL UTI Sputum culture growing MRSA Started on vancomycin Continue antifungal cream for skin rash. Likely Candidal skin rash had reported patient had Vit D deficiency and had not been on treatment recently. Vit D level 19.2. c/w Vit D. had reported patient had difficulty swallowing. FEES on 10/01 --> patient aspirates small amounts of secretions but not enough to prevent oral intake so long as he has good oral hygiene, aspiration precautions; also thrush noted in lower pharynx/vocal folds/Possibly first tracheal ring. Pt started on fluconazole 10/01 ---> DC in 10 days. Speech reassessed pt 10/03 --> edema in his pharynx has improved somewhat and will again need rechecking next week. 10/03 ID evaluated the patient: IV vancomycin for 14 days for MRSA pneumonia. Transition to oral linezolid on discharge. For pyelonephritis, obtain abdominopelvic imaging to rule out complications such as renal abscess/urolithiasis. If uncomplicated pyelonephritis secondary to ESBL Klebsiella---> continue gabapentin for 7 to 10 days total therapy. c/w Ertapenem 09/29 c/w Vanc 10/01 c/w warfarin 7.5 mg daily-->to 5 mg daily from 10/06, closely monitor PT/INR 10/03 CTAP: No urinary calculi or hydronephrosis. Interval development of multifocal hyperdense foci within the kidneys since August 2021 suggestive of delayed nephrograms versus small foci of hemorrhages. 1.8 cm hypodense focus within the mid pole of right kidney suggestive of a cyst versus small renal abscess. Multifocal airspace opacities within the lower lungs consistent with an infectious process. 10/04 reached out to urology Gayle Dawn who reviewed the case with Dr. Walters [on-call urologist]. Per urology, the abscess could be from pyelonephritis versus other infection, since the area possibly concerning for abscess is less than 2 cm---> it does not meet criteria for IR drainage. Recommends continuing antibiotics and time, recommends reaching out to ID for ongoing recommendation, patient will need to follow-up with urology as an outpatient and need repeat imaging to document resolution. No acute intervention needed at this time. If the area grows or he develops fever while on antibiotic, he may need IR drainage/obtain a culture. 10/04 reached out to ID [Dr. Duffy] via [place] text, updated him with the CTAP findings, awaiting further recommendations on duration of antibiotics. We will try to reach out to him again tomorrow. Disposition: PT/OT. Encourage incentive spirometer/flutter valve. Can go to placement with ID recommendation. Will get in touch with the speech prior to discharge if placement found. Awaiting placement. med/surg. Admission and Anticipated Discharge Date Admission Date: September 29, 2021 Subjective Patient was seen and examined at bedside. Patient sitting up in bed, on RA, NAD, no new acute events overnight per RN. Patient reports eating okay. Patient denies any fever/headache/chills/increased shortness of breath/chest pain/palpitation/other review of symptoms. Per RN, he is doing better. Physical Exam Physical Exam: GENERAL: Alert and oriented x3. NAD, on room air HEENT: No pallor, no icterus. Pupils equal, round and reactive to light. Oral mucosa moist. NECK: No JVD, no neck masses. HEART: S1 and S2 heard. Regular rate and rhythm. No murmur, no gallop. RESPIRATORY SYSTEM: Normal AP diameter. No accessory muscle use. No wheezing, no crackles. ABDOMEN: Soft, bowel sounds present, nontender, no distention. CENTRAL NERVOUS SYSTEM: No facial droop. Speech is clear. Obeys simple commands. Moves extremities. EXTREMITIES: No edema, no erythema seen. Results & Data Results & Data ([facility]) Vital Signs (Past 12 Hours) Vital Signs Temp Pulse Pulse Resp BP Pulse Ox Pulse Ox 10/06/21 15:44 61 10/06/21 15:10 35.8 C L 71 17 135/73 94 10/06/21 11:59 36.6 C 74 19 129/73 93 10/06/21 11:45 94 10/06/21 08:53 79 10/06/21 07:46 36.4 C L 81 19 153/70 H 92 (1) Acute respiratory failure Respiratory failure complication: hypoxia Qualified Code(s): J96.01 - Acute respiratory failure with hypoxia
[2021-10-06] MEDS: SENNOSIDES 8.8 MG/5 ML UDC PO SCH (21:28)
[2021-10-07 07:53] LABS: INR 2.1 (0.9-1.1); Prothrombin Time 19.8 Seconds (9.0-12.0)
[2021-10-07 08:17] LABS: Creatinine Clr Calc Pharmacy 156.3 ml/min; Est GFR (African American) 123.2 ml/min; Est GFR (Non-African American) 106.3 ml/min
[2021-10-07] MEDS: buPROPion HCl 100 MG TABLET PO SCH ×3 (08:39→21:21)
[2021-10-07] MEDS: CHOLECALCIFEROL 1,000 UNITS 25 MCG TAB PO SCH (08:39)
[2021-10-07] MEDS: ADVANCED PROBIOTIC 1250 MG CAPSULE PO SCH (08:39)
[2021-10-07] MEDS: dexAMETHasone 6 MG in SYRINGE 0 ML IV SCH (08:40)
[2021-10-07] MEDS: FLUCONAZOLE 100 MG TAB PO SCH (08:40)
[2021-10-07] MEDS: INSULIN ASPART 100 UNITS/ML 3 ML PEN SC SCH ×4 (08:41→20:55)
[2021-10-07] MEDS: DOCUSATE SODIUM SYRUP 100 MG/10 ML UDC PO SCH ×2 (08:42→21:21)
[2021-10-07] MEDS: SILVER SULFADIAZINE 1% CR 50 GM JAR TOP SCH (08:43)
[2021-10-07] MEDS: INSULIN HUMAN NPH SC SCH (08:43)
[2021-10-07] MEDS ORDERED: VANCOMYCIN TROUGH ONE (11:30)
[2021-10-07] MEDS: ERTAPENEM SODIUM 1,000 MG in SODIUM CHLORIDE 0.9% 50 ML IV SCH (12:34)
[2021-10-07] MEDS: VANCOMYCIN HCL 1,250 MG in SODIUM CHLORIDE 0.9% 250 ML IV SCH (13:46)
--- NOTE | 2021-10-07 13:59 | Pharmacy Report ---
Pharmacy Vanc AUC Short Note - Date of Service October 07, 2021 - Assessment & Plan Assessment 66 year old M receiving Vancomycin and Ertapenem for treatment of pneumonia and UTI. * Day #7 of antimicrobial therapy. * Sputum culture grew MRSA. ID recommends 14 days of IV Vancomycin. Last day of therapy: 10/14/21 * Urine culture grew ESBL K. pneumonia. ID recommends 7-10 days of IV Ertapenem. Last day of therapy: 10/08/21 * Remains on Fluconazole 100 mg PO daily for 10 days. Last day of therapy: 10/10/21 Plan Vancomycin * AUC/ANDREW is the preferred PK/PD target for vancomycin * AUC guided dosing is effective and associated with decreased risk of nephrotoxicity compared to traditional trough targets * Trough level of 20.8 mcg/mL is slightly above goal for the second straight level * Decrease to 1000 mg IV every 12 hours * Regimen is expected to achieve a steady-state AUC/ANDREW and trough of 453 mg/L.hr and 15.2 mcg/mL, respectively. It is associated with a 10% risk of nephrotoxicity. * Trough level ordered for 10/09/21 prior to the 1200 dose Ertapenem * Continue 1000 mg IV every 24 hours Pharmacy will continue to follow and will adjust dose/frequency as necessary. Thank you.
[2021-10-07] MEDS: VANCOMYCIN HCL 1,000 MG in SODIUM CHLORIDE 0.9% 250 ML IV SCH (14:00)
--- NOTE | 2021-10-07 14:05 | Pharmacy Report ---
Pharmacy Glycemic Short Note 2 - Date of Service October 07, 2021 - Glycemic Short BSG Results (Last 24 hours): 10/06/21 10/06/21 10/07/21 17:03 20:27 01:13 POC Glucose 180 H 202 H 83 10/07/21 10/07/21 10/07/21 04:56 07:50 11:43 POC Glucose 75 92 190 H OUTPATIENT ANTIDIABETIC REGIMEN: * Lantus 22 units SC BID * Novolog scale * Jardiance 25 mg PO daily * HbA1c = 7.5% (09/30/21) ASSESSMENT: 10/07: * Patient received a total of 41 units of insulin yesterday (15 units NPH + 26 units bolus) * BSGs were above goal yesterday: [phone] mg/dL * Fasting BSG well controlled at 92 mg/dL this AM * BSGs continue to trend upwards throughout the day, likely due to steroids * Increased NPH today * Tightened CF/CR but loosened at bedtime to prevent overnight hypoglycemia 10/05: * BSGs again well controlled * Fasting BSG in 80s this AM w/ 15 units NPH on board - same as yesterday. No correctional insulin administered last evening or overnight. Will continue the same for now as dexamethasone 6mg IV Q AM continues. * Post-prandial BSGs well controlled w/ current NPH and prandial Novolog doses - continue the same for now * Continue to utilize lesser doses of Novolog HS and overnight due to drop in BSGs overnight PLAN FOR INPATIENT GLYCEMIC CONTROL: * Hold outpatient oral diabetes medications * Basal insulin - increased * NPH 20 units SC AM with dexamethasone IV * Bolus insulin * NovoLog per scale ACHS and at 0200 * Goal Range: Low 100 mg/dL - High 150 mg/dL * Breakfast/Lunch/Dinner: Correction Factor: 15 mg/dL/unit; Nutritional/Prandial insulin per carb ratio of 1 unit per 4 grams CHO consumed * Bedtime: Correction Factor: 30 mg/dL/unit; No carb ratio PLAN FOR DISCHARGE: * HbA1c was 7.5% from this admission. This is near goal for this patient. Defer any adjustments in regimen to outpatient provider.
--- NOTE | 2021-10-07 17:29 | Hospitalist Progress Note ---
Date of Service October 07, 2021 Assessment & Plan (1) Acute respiratory failure: (2) STAR (obstructive sleep apnea): (3) COPD (chronic obstructive pulmonary disease): (4) Diabetes mellitus, type II: (5) Urinary tract infection due to ESBL Klebsiella: (6) Pneumonia due to COVID-19 virus: Plan: #. Acute respiratory failure due to COVID-19 pneumonia requiring mechanical ventilation. #. ESBL Klebsiella UTI #. Pharyngeal thrush PT/OT, Extubated 09/30, currently on 6 L nasal cannula oxygen. Continue dexamethasone 09/30 Patient had got 1 dose of remdesivir on admission. declined continuing this. No PE on CT PE. Initially on lovenox 40 BD sq --->resumed home warfarin 10/02 Home dose: Per pharmacy, his dose was increased to 7.5 mg daily on 09/27 Patient will need to follow-up with Coumadin clinic as an outpatient for close monitoring. Daily PT/INR - INR today 2.1 From EPIC review, UCx from 09/27/21 growing >100,000 LF GNR UCx from 08/31/21, 08/27/21, 08/16/21 grew Klebsiella pneumonia ESBL Admitting Urine culture - ESBL Klebsiella pn. Continue ertapenem for now and await ID recs for recurrent ESBL UTI Sputum culture growing MRSA Started on vancomycin Continue antifungal cream for skin rash. Likely Candidal skin rash had reported patient had Vit D deficiency and had not been on treatment recently. Vit D level 19.2. c/w Vit D. had reported patient had difficulty swallowing. FEES on 10/01 --> patient aspirates small amounts of secretions but not enough to prevent oral intake so long as he has good oral hygiene, aspiration precautions; also thrush noted in lower pharynx/vocal folds/Possibly first tracheal ring. Pt started on fluconazole 10/01 ---> DC in 10 days. Speech reassessed pt 10/03 --> edema in his pharynx has improved somewhat and will again need rechecking next week. 10/03 ID evaluated the patient: IV vancomycin for 14 days for MRSA pneumonia. Transition to oral linezolid on discharge. For pyelonephritis, obtain abdominopelvic imaging to rule out complications such as renal abscess/urolithiasis. If uncomplicated pyelonephritis secondary to ESBL Klebsiella---> continue gabapentin for 7 to 10 days total therapy. c/w Ertapenem 09/29 ---> total of 4+ weeks (needs midline, needs OP f/u with Uro then ID w/in 3 wks of DC before ATB duration ends to decide on further therapy). c/w Vanc 10/01 --> DC in 10 days. c/w warfarin 7.5 mg daily-->to 5 mg daily from 10/06, closely monitor PT/INR 10/03 CTAP: No urinary calculi or hydronephrosis. Interval development of multifocal hyperdense foci within the kidneys since August 2021 suggestive of delayed nephrograms versus small foci of hemorrhages. 1.8 cm hypodense focus within the mid pole of right kidney suggestive of a cyst versus small renal abscess. Multifocal airspace opacities within the lower lungs consistent with an infectious process. 10/04 reached out to urology Gayle Dawn who reviewed the case with Dr. Walters [on-call urologist]. Per urology, the abscess could be from pyelonephritis versus other infection, since the area possibly concerning for abscess is less than 2 cm---> it does not meet criteria for IR drainage. Recommends continuing antibiotics and time, recommends reaching out to ID for ongoing recommendation, patient will need to follow-up with urology as an outpatient and need repeat imaging to document resolution. No acute intervention needed at this time. If the area grows or he develops fever while on antibiotic, he may need IR drainage/obtain a culture. 10/04 reached out to ID [Dr. Duffy] via [place] text, updated him with the CTAP findings ---> 10/07 recommends treatment for total of 4+ weeks. Disposition: PT/OT. Encourage incentive spirometer/flutter valve. Medically stable for discharge. Will get in touch with the speech prior to discharge if placement found. Awaiting placement. med/surg. Will need midline prior to d ischarge. Admission and Anticipated Discharge Date Admission Date: September 29, 2021 Subjective Patient was seen and examined at bedside. Patient sitting up in bed, on RA, NAD, no new acute events overnight per RN. Patient reports eating okay. Patient denies any fever/headache/chills/increased shortness of breath/chest pain/palpitation/other review of symptoms. Per RN, he is doing better. Physical Exam Physical Exam: GENERAL: Alert and oriented x3. NAD, on room air HEENT: No pallor, no icterus. Pupils equal, round and reactive to light. Oral mucosa moist. NECK: No JVD, no neck masses. HEART: S1 and S2 heard. Regular rate and rhythm. No murmur, no gallop. RESPIRATORY SYSTEM: Normal AP diameter. No accessory muscle use. No wheezing, no crackles. ABDOMEN: Soft, bowel sounds present, nontender, no distention. CENTRAL NERVOUS SYSTEM: No facial droop. Speech is clear. Obeys simple commands. Moves extremities. EXTREMITIES: No edema, no erythema seen. Results & Data Results & Data ([facility]) Vital Signs (Past 12 Hours) Vital Signs Temp Pulse Resp BP Pulse Ox 10/07/21 17:10 36.7 C 78 16 132/78 95 10/07/21 15:50 94 10/07/21 12:56 94 10/07/21 07:41 36.5 C 63 16 131/76 92 (1) Acute respiratory failure Respiratory failure complication: hypoxia Qualified Code(s): J96.01 - Acute respiratory failure with hypoxia
[2021-10-07] MEDS: WARFARIN SOD 5 MG TAB PO SCH (17:58)
[2021-10-07] MEDS: SENNOSIDES 8.8 MG/5 ML UDC PO SCH (21:21)
[2021-10-08] MEDS: VANCOMYCIN HCL 1,000 MG in SODIUM CHLORIDE 0.9% 250 ML IV SCH ×2 (01:26→12:10)
[2021-10-08 07:40] LABS: INR 2.1 (0.9-1.1)
[2021-10-08] MEDS: FLUCONAZOLE 100 MG TAB PO SCH (07:58)
[2021-10-08] MEDS: buPROPion HCl 100 MG TABLET PO SCH ×3 (07:58→21:11)
[2021-10-08] MEDS: dexAMETHasone 6 MG in SYRINGE 0 ML IV SCH (07:58)
[2021-10-08] MEDS: ADVANCED PROBIOTIC 1250 MG CAPSULE PO SCH (07:59)
[2021-10-08] MEDS: CHOLECALCIFEROL 1,000 UNITS 25 MCG TAB PO SCH (08:01)
[2021-10-08] MEDS: DOCUSATE SODIUM SYRUP 100 MG/10 ML UDC PO SCH ×2 (08:01→21:10)
[2021-10-08] MEDS: SILVER SULFADIAZINE 1% CR 50 GM JAR TOP SCH (08:02)
[2021-10-08 08:03] LABS: Creatinine Clr Calc Pharmacy 154.4 ml/min; Est GFR (African American) 122.3 ml/min; Est GFR (Non-African American) 105.5 ml/min
[2021-10-08] MEDS: INSULIN ASPART 100 UNITS/ML 3 ML PEN SC SCH ×4 (08:09→21:11)
[2021-10-08] MEDS: INSULIN HUMAN NPH SC SCH (08:11)
[2021-10-08] MEDS: ERTAPENEM SODIUM 1,000 MG in SODIUM CHLORIDE 0.9% 50 ML IV SCH (11:30)
[2021-10-08] MEDS: WARFARIN SOD 5 MG TAB PO SCH (15:22)
--- NOTE | 2021-10-08 18:57 | Hospitalist Progress Note ---
Date of Service October 08, 2021 Assessment & Plan (1) Acute respiratory failure: (2) STAR (obstructive sleep apnea): (3) COPD (chronic obstructive pulmonary disease): (4) Diabetes mellitus, type II: (5) Urinary tract infection due to ESBL Klebsiella: (6) Pneumonia due to COVID-19 virus: Plan: #. Acute respiratory failure due to COVID-19 pneumonia requiring mechanical ventilation. #. ESBL Klebsiella UTI #. Pharyngeal thrush PT/OT, Extubated 09/30, currently on 6 L nasal cannula oxygen. Continue dexamethasone 09/30 Patient had got 1 dose of remdesivir on admission. declined continuing this. No PE on CT PE. Initially on lovenox 40 BD sq --->resumed home warfarin 10/02 Home dose: Per pharmacy, his dose was increased to 7.5 mg daily on 09/27 Patient will need to follow-up with Coumadin clinic as an outpatient for close monitoring. Daily PT/INR - INR today 2.1 From EPIC review, UCx from 09/27/21 growing >100,000 LF GNR UCx from 08/31/21, 08/27/21, 08/16/21 grew Klebsiella pneumonia ESBL Admitting Urine culture - ESBL Klebsiella pn. Continue ertapenem for now and await ID recs for recurrent ESBL UTI Sputum culture growing MRSA Started on vancomycin Continue antifungal cream for skin rash. Likely Candidal skin rash had reported patient had Vit D deficiency and had not been on treatment recently. Vit D level 19.2. c/w Vit D. had reported patient had difficulty swallowing. FEES on 10/01 --> patient aspirates small amounts of secretions but not enough to prevent oral intake so long as he has good oral hygiene, aspiration precautions; also thrush noted in lower pharynx/vocal folds/Possibly first tracheal ring. Pt started on fluconazole 10/01 ---> DC in 10 days. Speech reassessed pt 10/03 --> edema in his pharynx has improved somewhat and will again need rechecking next week. 10/03 ID evaluated the patient: IV vancomycin for 14 days for MRSA pneumonia. Transition to oral linezolid on discharge. For pyelonephritis, obtain abdominopelvic imaging to rule out complications such as renal abscess/urolithiasis. If uncomplicated pyelonephritis secondary to ESBL Klebsiella---> continue gabapentin for 7 to 10 days total therapy. c/w Ertapenem 09/29 ---> total of 4+ weeks (needs midline, needs OP f/u with Uro then ID w/in 3 wks of DC before ATB duration ends, to decide on further therapy). c/w Vanc 10/01 --> DC in 10 days. c/w warfarin 7.5 mg daily-->to 5 mg daily from 10/06, closely monitor PT/INR 10/03 CTAP: No urinary calculi or hydronephrosis. Interval development of multifocal hyperdense foci within the kidneys since August 2021 suggestive of delayed nephrograms versus small foci of hemorrhages. 1.8 cm hypodense focus within the mid pole of right kidney suggestive of a cyst versus small renal abscess. Multifocal airspace opacities within the lower lungs consistent with an infectious process. 10/04 reached out to urology Gayle Dawn who reviewed the case with Dr. Walters [on-call urologist]. Per urology, the abscess could be from pyelonephritis versus other infection, since the area possibly concerning for abscess is less than 2 cm---> it does not meet criteria for IR drainage. Recommends continuing antibiotics and time, recommends reaching out to ID for ongoing recommendation, patient will need to follow-up with urology as an outpatient and need repeat imaging to document resolution. No acute intervention needed at this time. If the area grows or he develops fever while on antibiotic, he may need IR drainage/obtain a culture. 10/04 reached out to ID [Dr. Duffy] via [place] text, updated him with the CTAP findings ---> 10/07 recommends treatment for total of 4+ weeks. Disposition: PT/OT. Encourage incentive spirometer/flutter valve. Medically stable for discharge. Will get in touch with the speech prior to discharge if placement found. Stable to go. Awaiting placement. med/surg. Will need midline prior to discharge. Admission and Anticipated Discharge Date Admission Date: September 29, 2021 Subjective Patient was seen and examined at bedside. Patient sitting up in bed, on RA, NAD, no new acute events overnight per RN. Patient reports eating okay. Patient denies any fever/headache/chills/increased shortness of breath/chest pain/palpitation/other review of symptoms. Per RN, he is doing better. Physical Exam Physical Exam: GENERAL: Alert and oriented x3. NAD, on room air HEENT: No pallor, no icterus. Pupils equal, round and reactive to light. Oral mucosa moist. NECK: No JVD, no neck masses. HEART: S1 and S2 heard. Regular rate and rhythm. No murmur, no gallop. RESPIRATORY SYSTEM: Normal AP diameter. No accessory muscle use. No wheezing, no crackles. ABDOMEN: Soft, bowel sounds present, nontender, no distention. CENTRAL NERVOUS SYSTEM: No facial droop. Speech is clear. Obeys simple commands. Moves extremities. EXTREMITIES: No edema, no erythema seen. Results & Data Results & Data ([facility]) Vital Signs (Past 12 Hours) Vital Signs Temp Pulse Resp BP Pulse Ox 10/08/21 15:05 36.4 C L 65 20 115/67 95 10/08/21 07:58 36.4 C L 66 20 159/75 H 95 (1) Acute respiratory failure Respiratory failure complication: hypoxia Qualified Code(s): J96.01 - Acute respiratory failure with hypoxia
[2021-10-08] MEDS: SENNOSIDES 8.8 MG/5 ML UDC PO SCH (21:10)
[2021-10-09] MEDS: VANCOMYCIN HCL 1,000 MG in SODIUM CHLORIDE 0.9% 250 ML IV SCH ×2 (00:09→12:44)
[2021-10-09 07:07] LABS: INR 2.3 (0.9-1.1); Prothrombin Time 21.7 Seconds (9.0-12.0)
[2021-10-09] MEDS: buPROPion HCl 100 MG TABLET PO SCH ×3 (07:18→20:37)
[2021-10-09] MEDS: ADVANCED PROBIOTIC 1250 MG CAPSULE PO SCH (07:18)
[2021-10-09] MEDS: dexAMETHasone 6 MG in SYRINGE 0 ML IV SCH (07:19)
[2021-10-09] MEDS: CHOLECALCIFEROL 1,000 UNITS 25 MCG TAB PO SCH (07:19)
[2021-10-09] MEDS: DOCUSATE SODIUM SYRUP 100 MG/10 ML UDC PO SCH ×2 (07:20→20:37)
[2021-10-09] MEDS: FLUCONAZOLE 100 MG TAB PO SCH (07:22)
[2021-10-09] MEDS: SILVER SULFADIAZINE 1% CR 50 GM JAR TOP SCH (07:22)
[2021-10-09 07:41] LABS: Creatinine Clr Calc Pharmacy 166.9 ml/min; Est GFR (African American) 126.9 ml/min; Est GFR (Non-African American) 109.5 ml/min
[2021-10-09] MEDS: INSULIN ASPART 100 UNITS/ML 3 ML PEN SC SCH ×4 (08:33→20:39)
[2021-10-09] MEDS: INSULIN HUMAN NPH SC SCH (08:34)
[2021-10-09] MEDS ORDERED: VANCOMYCIN TROUGH ONE (11:30)
[2021-10-09] MEDS: ERTAPENEM SODIUM 1,000 MG in SODIUM CHLORIDE 0.9% 50 ML IV SCH (11:49)
--- NOTE | 2021-10-09 14:08 | Pharmacy Report ---
Pharmacy Vanc AUC Short Note - Date of Service October 09, 2021 - Assessment & Plan Assessment 66 year old M receiving Vancomycin and Ertapenem for treatment of pneumonia and UTI. * Day #9 of antimicrobial therapy. * Sputum culture grew MRSA. ID recommends 14 days of IV Vancomycin. Last day of therapy: 10/14/21 * Urine culture grew ESBL K. pneumonia. ID now recommends 28 days of IV Ertapenem. Last day of therapy: 10/27/21 * Remains on Fluconazole 100 mg PO daily for 10 days. Last day of therapy: 10/10/21 Plan Vancomycin * AUC/ANDREW is the preferred PK/PD target for vancomycin * AUC guided dosing is effective and associated with decreased risk of nephrotoxicity compared to traditional trough targets * Trough level of 19.7 mcg/mL is predicted to achieve target AUC/ANDREW of 400-600 mg/L.hr * Continue dose of 1000 mg IV every 12 hours * Trough level ordered for 10/11/21 prior to the 1200 dose to ensure patient is not accumulating on this dose Ertapenem * ID now recommending 4 weeks of Invanz for possible pyelonephritis * Continue 1000 mg IV every 24 hours Pharmacy will continue to follow and will adjust dose/frequency as necessary. Thank you.
--- NOTE | 2021-10-09 14:16 | Pharmacy Report ---
Pharmacy Glycemic Short Note 2 - Date of Service October 09, 2021 - Glycemic Short BSG Results (Last 24 hours): 10/08/21 10/08/21 10/09/21 16:16 20:26 07:44 POC Glucose 183 H 116 H 79 10/09/21 11:53 POC Glucose 213 H OUTPATIENT ANTIDIABETIC REGIMEN: * Lantus 22 units SC BID * Novolog scale * Jardiance 25 mg PO daily * HbA1c = 7.5% (09/30/21) ASSESSMENT: 10/09: * Jose received a total of 64 units of insulin yesterday (20 units NPH + 44 units Novolog) * BSGs yesterday were acceptable: 150-595-210-116 mg/dL * Fasting BSG this AM was well controlled at 79 mg/dL * This is below goal but patient tends to have lower fasting BSGs. * Continue with current insulin regimen for another day. NPH may need increased further to cover for 6 mg of IV dexamethasone. * Novolog parameters may need tightened with breakfast only to control for lunch hyperglycemia 10/07: * Patient received a total of 41 units of insulin yesterday (15 units NPH + 26 units bolus) * BSGs were above goal yesterday: [phone] mg/dL * Fasting BSG well controlled at 92 mg/dL this AM * BSGs continue to trend upwards throughout the day, likely due to steroids * Increased NPH today * Tightened CF/CR but loosened at bedtime to prevent overnight hypoglycemia PLAN FOR INPATIENT GLYCEMIC CONTROL: * Hold outpatient oral diabetes medications * Basal insulin * NPH 20 units SC AM with dexamethasone IV * Bolus insulin * NovoLog per scale ACHS and at 0200 * Goal Range: Low 100 mg/dL - High 150 mg/dL * Breakfast/Lunch/Dinner: Correction Factor: 15 mg/dL/unit; Nutr itional/Prandial insulin per carb ratio of 1 unit per 4 grams CHO consumed * Bedtime: Correction Factor: 30 mg/dL/unit; No carb ratio PLAN FOR DISCHARGE: * HbA1c was 7.5% from this admission. This is near goal for this patient. Defer any adjustments in regimen to outpatient provider.
[2021-10-09] MEDS: WARFARIN SOD 5 MG TAB PO SCH (15:43)
--- NOTE | 2021-10-09 17:24 | Discharge Summary ---
Date of Service October 09, 2021 Admission HPI Per Admitting Provider 66 y/o M with PMH DM II, HTN, HLD, STAR, depression, chronic bronchitis, chronic diastolic heart failure, venous stasis, obesity Who was brought in from [facility] for worsening shortness of breath. History obtained from records and ER physician as patient is currently intubated. Patient had a recent ground-level fall with rib fractures and sternal fracture complicated by respiratory failure requiring brief intubation and management of septic shock at [facility] (transferred there from [facility]). Discharged from [facility] to [facility] on 08/22/21. Presented to [facility] ER on 08/30/21 for rspiratory distress and aucte renal failure . Was transferred to [facility] where he was managed for septic shock (UTI and resp failure), required intubation and was discharged back from [facility] to [facility] on 09/10/21. Patient was reported to have been having cough and shortness of breath over the past few days, tested positive for COVID-19 yesterday and has been having fevers. He was on nasal cannula was hypoxic and had to be transferred to the ER. Patient required BiPAP in the ER but due to worsening respiratory status, saturating 80s on BiPAP, patient was intubated. Labs notable for hemoglobin of 11.3, alkaline phosphatase of 182, albumin of 1.8, positive Covid test Chest tube reports patchy infiltrates bilaterally characteristic of viral pneumonitis. Admission Exam Per Admitting Provider Constitutional: + obese Intubated ENMT: ET tube in situ Respiratory: On mechanical ventilation, diminished breath sounds Cardiovascular: RRR, S1-S2 Gastrointestinal (Abdomen): normal bowel sounds, soft, nontender, no hepatosplenomegaly Musculoskeletal: Chronic stasis changes lower extremities Skin: Erythematous rash in perineal region and groin Neurologic: Intubated/sedated Genitourinary: Kendall being inserted Principal Diagnosis Acute pyelonephritis secondary to ESBL Klebsiella likely complicated with small right renal abscess [1.8 cm] Oropharyngeal thrush MRSA pneumonia Discharge Exam GENERAL: Alert and oriented x3. NAD, on room air HEENT: No pallor, no icterus. Pupils equal, round and reactive to light. Oral mucosa moist. NECK: No JVD, no neck masses. HEART: S1 and S2 heard. Regular rate and rhythm. No murmur, no gallop. RESPIRATORY SYSTEM: Normal AP diameter. No accessory muscle use. No wheezing, no crackles. ABDOMEN: Soft, bowel sounds present, nontender, no distention. CENTRAL NERVOUS SYSTEM: No facial droop. Speech is clear. Obeys simple commands. Moves extremities. EXTREMITIES: No edema, no erythema seen. Discharge Data Allergies Allergy/AdvReac Type Severity Reaction Status Date / Time calamine Allergy Unknown Unknown Unverified 09/29/21 09:51 cefepime Allergy Unknown Rash Unverified 09/29/21 09:51 Penicillins Allergy Unknown Rash Unverified 09/29/21 09:51 piperacillin [From Zosyn] Allergy Unknown Unknown Unverified 09/29/21 09:51 procaine Allergy Unknown swelling Unverified 09/29/21 09:51 lips, face tazobactam [From Zosyn] Allergy Unknown Unknown Unverified 09/29/21 09:51 vancomycin Allergy Unknown Rash Unverified 09/29/21 09:51 Consultations 09/29/21 09:52 ED Decision to Admit Stat 09/29/21 11:11 Consult Public Information Relations Manager Stat 09/29/21 12:37 Consult Public Information Relations Manager Routine 09/30/21 15:49 Consult Infectious Diseases Routine 10/04/21 09:56 Consult Urology Routine Ordered Studies 09/29/21 11:53 CT angio chest PE protocol Stat 10/03/21 17:48 CT abd pelvis wo con Routine Hospital Course (1) Acute respiratory failure: (2) STAR (obstructive sleep apnea): (3) COPD (chronic obstructive pulmonary disease): (4) Diabetes mellitus, type II: (5) Urinary tract infection due to ESBL Klebsiella: (6) Pneumonia due to COVID-19 virus: 66 y/o M with PMH DM II, HTN, HLD, STAR, depression, chronic bronchitis, chronic diastolic heart failure, venous stasis, obesity presented 09/[address] [facility] for shortness of breath. Patient was intubated in the ED for Covid pneumonia at admission. He was managed for the following while inpatient: Acute hypoxic respiratory failure secondary to Covid pneumonia requiring mechanical ventilation, intubated 09/29, extubated 09/30 on 6 L nasal cannula oxygen. Patient got dexamethasone course and 1 dose of remdesivir, further dose was denied by . CT chest revealed no pulmonary embolism while inpatient. Patient was also treated for acute pyelonephritis with abscess [ESBL Klebsiella], ID and urology evaluated the patient and made recommendation for conservative management with ertapenem for now, follow-up with ID/urology within 17 days of discharge to get further recommendation IV antibiotic. During his speech evaluation, he was found to have oropharyngeal thrush, he was started on treatment with fluconazole, he will need 2 more dose upon discharge. Patient was resumed on his warfarin while inpatient, he was recently increased to 7.5 mg daily, but due to fluconazole treatment he is receiving, he was started on 5 mg daily of warfarin. Patient to follow-up with Coumadin clinic at 5 days after discharge for necessary adjustment in his warfarin doses. For MRSA pneumonia, ID recommended treatment with IV vancomycin for 14 days, he will need 6 more days of treatment upon discharge. Patient will need outpatient speech evaluation for further recommendation on his dietary consistencies as outlined in the instruction section. Sequence of events for treatment: had reported patient had difficulty swallowing. FEES on 10/01 --> patient aspirates small amounts of secretions but not enough to prevent oral intake so long as he has good oral hygiene, aspiration precautions; also thrush noted in lower pharynx/vocal folds/Possibly first tracheal ring. Pt started on fluconazole 10/01 ---> DC in 10 days. Speech reassessed pt 10/03 --> edema in his pharynx has improved somewhat and will again need rechecking as an outpatient. 10/03 ID evaluated the patient: IV vancomycin for 14 days for MRSA pneumonia. 4+ total ertapenem therapy for complicated pyelonephritis. c/w Ertapenem 09/29 ---> total of 4+ weeks (needs midline, needs OP f/u with Uro then ID w/in 3 wks of DC before ATB duration ends, to decide on further the rapy). c/w Vanc 10/01 --> DC in 14 days. c/w warfarin 7.5 mg daily-->to 5 mg daily from 10/06, closely monitor PT/INR, patient to follow-up with cold clinic as an outpatient closely. 10/03 CTAP: No urinary calculi or hydronephrosis. Interval development of multifocal hyperdense foci within the kidneys since August 2021 suggestive of delayed nephrograms versus small foci of hemorrhages. 1.8 cm hypodense focus within the mid pole of right kidney suggestive of a cyst versus small renal abscess. Multifocal airspace opacities within the lower lungs consistent with an infectious process. 10/04 reached out to urology Gayle Dawn who reviewed the case with Dr. Walters [on-call urologist]. Per urology, the abscess could be from pyelonephritis versus other infection, since the area possibly concerning for abscess is less than 2 cm---> it does not meet criteria for IR drainage. Recommends continuing antibiotics and time, recommends reaching out to ID for ongoing recommendation, patient will need to follow-up with urology as an outpatient and need repeat imaging to document resolution. No acute intervention needed at this time. If the area grows or he develops fever while on antibiotic, he may need IR drainage/obtain a culture. 10/04 reached out to ID [Dr. Duffy] via [place] text, updated him with the CTAP findings ---> 10/07 recommends treatment for total of 4+ weeks. Following instructions are communicated at the point of discharge: Follow-up with your primary care physician within a week time. You are being discharged on modified diet recommendation as per speech, you will need outpatient instrumental assessment by speech for further recommendation on your dietary consistencies. So, you will need an outpatient appointment with video swallow to see if you are ready for upgrade on your dietary consistency and also to see if you need any [employer] dysphagia therapy. You are being discharged on long-term antibiotic for your complicated UTI/acute pyelonephritis---> you will need to follow-up with urology doctor within 2 weeks time and then with ID doctor to decide on further continuation of your antibiotic for the same. Your fluconazole for oropharyngeal thrush will be done in 2 more days upon discharge. You vancomycin for MRSA pneumonia will be done in 6 more days upon discharge. Your Ertapenem for acute pyelonephritis was started on 09/29, will discharge you with 17 more days of ertapenem, you will need to get in touch with your infectious disease doctor/Urology on further recommendation. Because of drug drug interaction of fluconazole and warfarin, your warfarin has been decreased to 5 mg daily [per pharmacy record, your warfarin was recently increased to 7.5 mg daily on 09/27]. You will need to get your PT/INR done in 3 to 5 days of discharge, and have your Coumadin dosage adjusted accordingly. Get Vancomycin Trough in 3 days of discharge, have the results forwarded to PCP. You were Covid positive on 09/29, you will be off of isolation from October 20 onwards. Take medications as prescribed. Total Time Total Time Spent Total Time Spent (In Minutes): 50 Discharge Plan Discharge Items Patient Disposition: Transfer Inpatient Rehab Fac Reason For Visit: SHORTNESS OF BREATH Discharge Diagnosis: Acute pyelonephritis secondary to ESBL Klebsiella likely complicated with small right renal abscess [1.8 cm] Oropharyngeal thrush MRSA pneumonia Activity: Resume your previous activity Non-emergency contact: Primary Care Provider Call non-emergency contact if: you have any medication questions, your symptoms worsen and your temperature is above 101 Follow-up/Referrals: [facility] [Primary Care Provider] - Geronimo Duffy DO [Physician] - (Date & Time 11/19/2021 10:20 AM Provider Geronimo Duffy DO Department Infectious Disease [place] [facility] ) Diet: Other - See Diet Comment Liquid Consistency: [place] thick Diet Comment: Extra moist carb consistent or DM 2 ->minced and moist/nectar thick liquid. Addtl Attending Provider Instructions: Follow-up with your primary care physician within a week time. You are being discharged on modified diet recommendation as per speech, you will need outpatient instrumental assessment by speech for further recommendation on your dietary consistencies. So, you will need an outpatient appointment with video swallow to see if you are ready for upgrade on your dietary consistency and also to see if you need any [employer] dysphagia therapy. You are being discharged on long-term antibiotic for your complicated UTI/acute pyelonephritis---> you will need to follow-up with urology doctor within 2 weeks time and then with ID doctor to decide on further continuation of your antibiot ic for the same. Your fluconazole for oropharyngeal thrush will be done in 2 more days upon discharge. You vancomycin for MRSA pneumonia will be done in 6 more days upon discharge. Your Ertapenem for acute pyelonephritis was started on 09/29, will discharge you with 17 more days of ertapenem, you will need to get in touch with your infectious disease doctor/Urology on further recommendation. Because of drug drug interaction of fluconazole and warfarin, your warfarin has been decreased to 5 mg daily [per pharmacy record, your warfarin was recently increased to 7.5 mg daily on 09/27]. You will need to get your PT/INR done in 3 to 5 days of discharge, and have your Coumadin dosage adjusted accordingly. Get Vancomycin Trough in 3 days of discharge, have the results forwarded to PCP. You were Covid positive on 09/29, you will be off of isolation from October 20 onwards. Take medications as prescribed. Pending Studies at Discharge: No Stand-Alone Forms: My [facility] Skilled Items Patient informed of condition?: Yes DNR: No Discharge Level of Care: Acute rehab Communicable Disease: No Discharge Prognosis: Stable Lines: PICC Urinary Catheter: Yes Medications and DC Order Prescriptions: New fluconazole 100 mg Tablet 100 mg PO QAM 2 Days Qty: 2 RF: 0 Advanced Probiotic 625 mg (10 billion cell) Capsule 2 cap PO DAILY Qty: 60 RF: 0 vancomycin 1.25 gram recon soln 1 g IV Q12H 6 Days Qty: 12 RF: 0 ertapenem [Invanz] 1 gram recon soln 1 g IV DAILY 17 Days Qty: 17 RF: 0 Continued atorvastatin 40 mg tablet 40 mg PO DAILY RF: 0 silver sulfadiazine [Silvadene] 1 % Cream 1 applic TOPICAL DAILY RF: 0 bupropion HCl 150 mg tablet sustained-release 12 hr 150 mg PO BID RF: 0 sennosides [senna] 8.6 mg Tablet 8.6 mg PO BID RF: 0 polyethylene glycol 3350 [Miralax] 17 gram Powder In Packet 17 g PO DAILY PRN (Reason: Constipation) RF: 0 sennosides-docusate sodium [Senexon-S] 8.6-50 mg Tablet 1 tab-cap PO DAILY PRN (Reason: Consitpation) RF: 0 sertraline 100 mg tablet 200 mg PO DAILY RF: 0 acetaminophen 650 mg Tablet 650 mg PO Q4H PRN (Reason: Pain) RF: 0 magnesium hydroxide [Milk of Magnesia] 400 mg/5 mL Suspension 30 ml PO DAILY PRN (Reason: Constipation) RF: 0 bisacodyl 10 mg Suppository 10 mg OH DAILY PRN (Reason: Constipation) RF: 0 Fleet Enema 19-7 gram/118 mL Enema 133 ml OH DAILY PRN (Reason: Constipation) RF: 0 albuterol 90 mcg/actuation Aerosol 180 mcg INHALATION QID RF: 0 docusate calcium 50 mg Capsule 100 mg PO BID RF: 0 pregabalin 75 mg capsule 75 mg PO Q12H RF: 0 Jardiance 25 mg Tablet 25 mg PO QAM RF: 0 Trelegy Ellipta 100-62.5-25 mcg Blister With Device 1 ea INHALATION DAILY RF: 0 glucagon 0.5 mg/0.1 mL Auto-Injector 0.5 mg SUBCUT UD PRN (Reason: Hypoglycemia) RF: 0 Lantus U-100 Insulin 100 unit/mL Solution 22 unit SUBCUT BID RF: 0 insulin aspart U-100 [Novolog U-100 Insulin aspart] 100 unit/mL Solution 0 sliding scale dose subcut ACHS RF: 0 lisinopril 10 mg Tablet 10 mg PO DAILY RF: 0 warfarin 5 mg tablet 0 mg PO UD RF: 0 metoprolol succinate 25 mg tablet extended release 24 hr 25 mg PO DAILY RF: 0 Spiriva with HandiHaler 18 mcg capsule, w/inhalation device 1 cap INHALATION DAILY RF: 0 furosemide 40 mg tablet 40 mg PO BID RF: 0 Discharge Orders: Discharge Order (Routine); Ordered 10/09/21 Ordered By: Scott Curran/Other Patient Handouts: A1C, Managing Type 2 Diabetes, Special Foot Care for Diabetes Admission Data Admit Date/Time: 09/29/21 12:04 Attending Provider: Scott Landrum Admit Provider: Emmanuelle Ventura I. Primary Care Provider: [facility] Other Providers: Yohan Silva ; Oswald Barajas ; Emmanuelle Ventura I. ; Xavi Reyna ; Carrie Worthy ; Trevon Harrison I. ; Jamir Neal II ; Bridget Siegel ; Erwin García ; Geronimo Duffy ; Tyrell Walters ; [facility]
[2021-10-09] MEDS: SENNOSIDES 8.8 MG/5 ML UDC PO SCH (20:37)
[2021-10-11] MEDS ORDERED: VANCOMYCIN TROUGH ONE (11:30)
== END 2021-10-09 21:15 | DRG 208 ==
LOC: ED 08:38 → 2E 11:36 → SUATTDRO 12:04 → 2E 12:04 → 2W 10-06 22:24